=== PATIENT | female | born 1995 | race Two or more races ===

== ENCOUNTER 2021-02-27 20:43 | Emergency (ER) | payer MEDICAID, SELFPAY ==
[2021-02-27 20:53] VITALS: BP 120/75; PULSE 72; RESP 18; TEMP 36.7; O2SAT 99; BMI 25.3
--- NOTE | 2021-02-27 22:57 | ED.GENADULT ---
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 The patient became concerned because she noted that 3 hours later she had bumps at the left lower corner of her mouth. Related Data Previous Rx's Medication Instructions Recorded mupirocin 2 % topical ointment 1 appl TOPICAL TID 5 Days #15 g 02/27/21 Allergies Allergy/AdvReac Type Severity Reaction Status Date / Time No Known Allergies Allergy Unknown UNKNOWN Verified 02/27/21 20:53 [NO KNOWN ALLERGIES] Review of Systems Review of Systems: pertinent positives and negatives as stated in HPI 10 point review of systems is otherwise negative. PMFSH Past Medical History Source: nursing notes reviewed Medical History No pertinent past medical history Social History Social History Advance Directives: No Advance Directives Information Provided: Yes Patient : No Physical Exam Vital Signs: Vital Signs: Last Vital Signs Temp 98.0 F 02/27/21 20:53 Pulse 72 02/27/21 20:53 Resp 18 02/27/21 20:53 BP 120/75 02/27/21 20:53 Pulse Ox 99 02/27/21 20:53 BMI result Body Mass Index 25.3 VITAL SIGNS: Reviewed. GENERAL: Well developed, well nourished, in no acute distress. HEAD: Normocephalic/atraumatic EYES: PERRLA, EOMI OROPHARYNX: no oral lesions noted, posterior pharynx clear , there are noted clusters of purulence at spots at the left lower corner of the mouth NECK: Supple, no adenopathy LUNGS: Normal breath sounds. No adventitious sounds or accessory muscle use. SpO2<99> CARDIOVASCULAR: Regular rate and rhythm without noted murmurs ABDOMEN: Soft, non-tender, non-distended with bowel sounds. NEUROLOGIC: Alert and oriented x 4. Course Course Course Narrative: 25-year-old female was reassured that herpes would not have been transmitted within 3 hours and instead the area is possibly consistent with than impetigo. She was discharged home in stable condition with a prescription for mupirocin and instructions follow-up with primary care provider. Discharge Plan Discharge Clinical Impression: Impetigo Patient Disposition: Home, Self-Care Instructions: Impetigo (ED) Additional Instructions: follow-up with the primary care provider in complete the course of topical antibiotic. Prescriptions: New mupirocin 2 % ointment 1 appl topical TID 5 Days Qty: 15 RF: 0
[2021-02-27 23:03] VITALS: BP 112/73; PULSE 80; RESP 18; TEMP 36.8; O2SAT 99
== END 2021-02-27 23:10 | disposition home or self-care (01) ==
PROVIDERS: Emergency Provider Student in an Organized Health Care Education/Training Program
DX: L01.00 Impetigo, unspecified (principal)
CPT/HCPCS: 99283; 99284

== ENCOUNTER 2021-04-04 18:59 | Emergency (ER) | payer MEDICAID, SELFPAY ==
[2021-04-04 19:38] VITALS: BP 120/76; PULSE 76; RESP 16; TEMP 35.6; O2SAT 100; BMI 25.9
[2021-04-04 19:59] LABS: MANUAL DIFF FLAG NO
[2021-04-04 20:02] LABS: Appearance Urine CLEAR; Color Urine YELLOW; Glucose Urine UA NEG (NEG); Leukocyte Esterase Urine NEG (NEG); Nitrite Urine NEG (NEG); PH 5.5 (5.0-8.0); Specific Gravity - Urine >= 1.030 (1.005-1.025); Urine Blood NEG (NEG); Urine Ketones NEG (NEG); Urine Protein NEG (NEG-TRACE)
[2021-04-04 20:04] LABS: UPreg QC Valid YES; Urine Pregnancy NEGATIVE (NEGATIVE)
[2021-04-04 20:13] LABS: Basophils Percent Auto 0.4 % (0-2); Eosinophils Percent Auto 0.4 % (0-4); Hematocrit 40.3 % (37.0-47.0); Hemoglobin 12.9 g/dl (12.0-16.0); Imm Gran Abs Auto 0.03 X10*3/uL (0.00-0.03); Imm Gran Pct Auto 0.3 % (0.0-0.4); Lymphocytes Absolute Auto 2.2 X10*3/uL (1.2-4.9); Lymphocytes Percent Auto 21.9 % (20-40); Mean Corpuscular Hemoglobin 28.9 pg (27.0-33.0); Mean Corpuscular Volume 90.2 fL (80.0-98.0); Mean Platelet Volume 11.2 fL (9.4-12.3); Monocytes Absolute Auto 0.6 X10*3/uL (0.1-1.2); Monocytes Percent Auto 5.9 % (2-11); Neutrophils Absolute Auto 7.1 x10*3/uL (2.0-8.3); Neutrophils Percent Auto 71.1 % (45-73); Platelet Count 302 X10*3/uL (160-400); Red Blood Count 4.47 X10*6/uL (4.20-5.50); Red Cell Distribution Width 13.3 % (11.0-16.0)
[2021-04-04 20:23] LABS: COVID-19 Test Negative (Negative)
[2021-04-04 20:23] LABS: Alanine Aminotransferase 10 U/L (0-31); Albumin Level 4.5 g/dL (3.5-5.0); Alkaline Phosphatase 65 U/L (39-117); Anion Gap 15 (12-20); Aspartate Amino Transferase 12 U/L (5-31); Bilirubin Total 0.4 mg/dL (0.0-1.0); Blood Urea Nitrogen 11 mg/dL (9-16); Calcium 9.6 mg/dL (8.4-10.2); Carbon Dioxide 22 mmol/L (22-29); Chloride 105 mmol/L (96-108); Creatinine Clr Calc Pharmacy 104.4; Estimated Glomerular Filt Rate > 60; Glucose Random 96 mg/dL (60-115); Potassium 3.8 mmol/L (3.3-5.1); Sodium 138 mmol/L (135-145); Total Protein 7.7 g/dL (6.5-8.0)
[2021-04-04 23:23] VITALS: BP 117/63; PULSE 69; RESP 16; TEMP 37.2; O2SAT 99
--- NOTE | 2021-04-05 00:11 | ED.HA ---
HPI - Headache General Chief Complaint: Headache Stated Complaint: sinus pain dizziness Time Seen by Provider: 04/05/21 00:09 Source: patient Mode of arrival: ambulatory Limitations: no limitations History of Present Illness HPI Narrative: 25-year-old female came in for evaluation of right-sided facial pain. Symptoms started 3 days ago with right-sided head pain, pain described as pressure localized on the right frontal / right maxillary area pain is constant, no relieving factor, no aggravating factor. Declined any nasal discharge. No fever, no chills , no sore throat. No sick contacts, no coughing. No blurry vision, no neck stiffness, no photophobia. Related Data Previous Rx's Medication Instructions Recorded mupirocin 2 % topical ointment 1 appl TOPICAL TID 5 Days #15 g 02/27/21 amoxicillin 875 mg-potassium 1 tab PO Q12H #14 tab 04/05/21 clavulanate 125 mg tablet (Augmentin) Allergies Allergy/AdvReac Type Severity Reaction Status Date / Time No Known Allergies Allergy Unknown UNKNOWN Verified 04/04/21 19:45 [NO KNOWN ALLERGIES] Review of Systems Review of Systems: All other systems are reviewed and are negative Constitutional: Reports as per HPI and Reports no additional constitutional complaints Eyes: Reports as per HPI and Reports no additional eye complaints Reports system reviewed and no additional complaints, except as documented Cardiovascular: Reports as per HPI and Reports no additional cardiovascular complaints Respiratory: Reports as per HPI and Reports no additional respiratory complaints Gastrointestinal: Reports as per HPI and Reports no additional gastrointestinal complaints Genitourinary: Reports no additional female genitourinary complaints Musculoskeletal: Reports no additional musculoskeletal complaints Skin/Breast: Reports system reviewed and no additional complaints, except as docu Psychiatric: Reports no additional psychiatric complaints Endocrine: Reports no additional endocrine complaints Hematologic/Lymphatic: Reports no additional hematologic/lymphatic complaints Allergic/Immunologic: Reports no additional allergic/immunologic complaints Reports system reviewed and no additional complaints, except as documented and Reports Abnormal speech present [facility] Past Medical History Medical History (Updated 04/05/21 @ 00:20 by Ines Duckworth MD) Cardiac abnormality No pertinent past medical history Social History Social History Patient Tobacco Use Status: Never used Tobacco Advance Directives: No Advance Directives Information Provided: No Patient : No Physical Exam Vital Signs: Vital Signs: Last Vital Signs Temp 98.9 F 04/04/21 23:23 Pulse 69 04/04/21 23:23 Resp 16 04/04/21 23:23 BP 117/63 04/04/21 23:23 Pulse Ox 99 04/04/21 23:23 BMI result Body Mass Index 25.9 vital signs have been reviewed as appeared to be correct. Blood pressure normal. Heart rate normal. Respiration rate normal. Temperature normal. Oxygen saturation normal. Appearance: Alert. Oriented X3. No acute distress. Head: Normal external exam. Normocephalic. Atraumatic. No Hu signs noted. Tenderness with percussion over right frontal/right maxillary sinuses, no nasal discharge. Eyes: PERRLA. EOMI. Conjunctiva and sclera normal. Eyelids normal. ENT: TM's Normal. Pharynx normal. Uvula midline. Moist mucous membranes. No trismus noted. No drooling noted. No muffled voice noted. Neck: Normal inspection. Neck supple. FROM. No adenopathy. Thyroid Normal. No meningeal signs. No neck mass noted. CVS: Normal heart rate and rhythm. Heart sound normal. No murmurs noted. Pulses normal throughout. Respiratory: No respiratory distress. Painless inspiration. Breath sounds normal. No wheezes/rales/rhonchi noted. Chest nontender. No accessory muscle usage noted or decreased air movement noted. Abdomen: Soft and nontender. Bowel sounds normal in all 4 quadrants. No distention noted. No organomegaly noted. No visible injury noted. Back: No CVA tenderness. Full range of motion noted. Skin: Skin warm and dry. Normal skin color. Normal skin turgor. No rashes/lesions/lacerations noted. Extremities: No lower extremity edema. Extremities exhibit normal range of motion. Extremities nontender. Neuro: Oriented X 3. Cranial nerve exam: II-XII are grossly intact , no facial drooping. No motor deficit. No sensory deficit. Reflexes normal. Course Course Course Narrative: Assessment and plan. 25-year-old female otherwise healthy came in with symptoms of right frontal/ maxillary sinus infection. No neurological deficit and normal neuro exam. MDM - Headache Lab Data Attestation: I reviewed the patient's lab results. Result diagrams: 04/04/21 19:53 04/04/21 19:53 Labs: Lab Results 04/04/21 04/04/21 04/04/21 Range/Units 19:47 19:53 19:53 WBC 10.0 (4.8-10.8) X10*3/uL RBC 4.47 (4.20-5.50) X10*6/uL Hgb 12.9 (12.0-16.0) g/dl Hct 40.3 (37.0-47.0) % MCV 90.2 (80.0-98.0) fL MCH 28.9 (27.0-33.0) pg MCHC 32.0 (31.0-35.0) g/dl RDW 13.3 (11.0-16.0) % Plt Count 302 (160-400) X10*3/uL MPV 11.2 (9.4-12.3) fL Immature Gran % (Auto) 0.3 (0.0-0.4) % Neut % (Auto) 71.1 (45-73) % Lymph % (Auto) 21.9 (20-40) % [place] % (Auto) 5.9 (2-11) % Eos % (Auto) 0.4 (0-4) % Baso % (Auto) 0.4 (0-2) % Lymph # (Auto) 2.2 (1.2-4.9) X10*3/uL [place] # (Auto) 0.6 (0.1-1.2) X10*3/uL Eos # (Auto) 0.0 (0.0-0.4) X10*3/uL Baso # (Auto) 0.0 (0.0-0.2) X10*3/uL Abs Immat Gran (auto) 0.03 (0.00-0.03) X10*3/uL Absolute Neuts (auto) 7.1 (2.0-8.3) x10*3/uL Absolute Nucleated RBC 0.000 (0.0-0.012) X10*3/uL Nucleated RBC % (auto) 0.0 (0.0-0.2) /100WBC Sodium 138 (135-145) mmol/L Potassium 3.8 (3.3-5.1) mmol/L Chloride 105 (96-108) mmol/L Carbon Dioxide 22 (22-29) mmol/L Anion Gap 15 (12-20) BUN 11 (9-16) mg/dL Creatinine 0.82 (0.5-1.4) mg/dL Estim Creat Clear Calc 104.4 Estimated GFR > 60 Random Glucose 96 (60-115) mg/dL Calcium 9.6 (8.4-10.2) mg/dL Total Bilirubin 0.4 (0.0-1.0) mg/dL AST 12 (5-31) U/L ALT 10 (0-31) U/L Alkaline Phosphatase 65 (39-117) U/L Total Protein 7.7 (6.5-8.0) g/dL Albumin 4.5 (3.5-5.0) g/dL Urine Color Urine Appearance Urine pH (5.0-8.0) Ur Specific [place] (1.005-1.025) Urine Protein (NEG-TRACE) MG/DL Urine Glucose (UA) (NEG) MG/DL Urine Ketones (NEG) MG/DL Urine Blood (NEG) Urine Nitrite (NEG) Ur Leukocyte Esterase (NEG) Urine Test (NEGATIVE) COVID-19 ([place]) Negative (Negative) COVID-19 Clin Com See Note 04/04/21 04/04/21 Range/Units 19:53 19:53 WBC (4.8-10.8) X10*3/uL RBC (4.20-5.50) X10*6/uL Hgb (12.0-16.0) g/dl Hct (37.0-47.0) % MCV (80.0-98.0) fL MCH (27.0-33.0) pg MCHC (31.0-35.0) g/dl RDW (11.0-16.0) % Plt Count (160-400) X10*3/uL MPV (9.4-12.3) fL Immature Gran % (Auto) (0.0-0.4) % Neut % (Auto) (45-73) % Lymph % (Auto) (20-40) % [place] % (Auto) (2-11) % Eos % (Auto) (0-4) % Baso % (Auto) (0-2) % Lymph # (Auto) (1.2-4.9) X10*3/uL [place] # (Auto) (0.1-1.2) X10*3/uL Eos # (Auto) (0.0-0.4) X10*3/uL Baso # (Auto) (0.0-0.2) X10*3/uL Abs Immat Gran (auto) (0.00-0.03) X10*3/uL Absolute Neuts (auto) (2.0-8.3) x10*3/uL Absolute Nucleated RBC (0.0-0.012) X10*3/uL Nucleated RBC % (auto) (0.0-0.2) /100WBC Sodium (135-145) mmol/L Potassium (3.3-5.1) mmol/L Chloride (96-108) mmol/L Carbon Dioxide (22-29) mmol/L Anion Gap (12-20) BUN (9-16) mg/dL Creatinine (0.5-1.4) mg/dL Estim Creat Clear Calc Estimated GFR Random Glucose (60-115) mg/dL Calcium (8.4-10.2) mg/dL Total Bilirubin (0.0-1.0) mg/dL AST (5-31) U/L ALT (0-31) U/L Alkaline Phosphatase (39-117) U/L Total Protein (6.5-8.0) g/dL Albumin (3.5-5.0) g/dL Urine Color YELLOW Urine Appearance CLEAR Urine pH 5.5 (5.0-8.0) Ur Specific [place] >= 1.030 H (1.005-1.025) Urine Protein NEG (NEG-TRACE) MG/DL Urine Glucose (UA) NEG (NEG) MG/DL Urine Ketones NEG (NEG) MG/DL Urine Blood NEG (NEG) Urine Nitrite NEG (NEG) Ur Leukocyte Esterase NEG (NEG) Urine Test NEGATIVE (NEGATIVE) COVID-19 ([place]) (Negative) COVID-19 Clin Com Discharge Plan Discharge Clinical Impression: Sinusitis Patient Disposition: Home, Self-Care Instructions: Sinusitis (ED) Prescriptions: New amoxicillin-pot clavulanate [Augmentin] 875-125 mg tablet 1 tab PO Q12H Qty: 14 RF: 0 No Action mupirocin 2 % ointment 1 appl topical TID 5 Days Qty: 15 RF: 0 Referrals: [facility] [Primary Care Provider] - 2 days
[2021-04-05] MEDS: predniSONE 20 MG TABLET 60 MG PO (00:46)
[2021-04-05] MEDS: Amoxicillin/Potassium Clav 875 MG TABLET PO (00:47)
[2021-04-05] MEDS: Ibuprofen 600 MG TABLET PO (00:47)
== END 2021-04-05 00:53 | disposition home or self-care (01) ==
PROVIDERS: Emergency Provider Emergency Medicine
DX: J32.9 Chronic sinusitis, unspecified (principal); R51.9 Headache, unspecified; R42 Dizziness and giddiness; Z20.822 Contact with and (suspected) exposure to COVID-19; Z79.899 Other long term (current) drug therapy
CPT/HCPCS: 80053; 81003; 81025; 85025; 87635; 99283; 99284

== ENCOUNTER 2021-07-13 20:12 | Emergency (ER) | payer MEDICAID, SELFPAY ==
--- NOTE | 2021-07-13 | ECG_ITS ---
Test Reason : CHEST PAIN /STABBING PAIN Blood Pressure : / mmHG Vent. Rate : 080 BPM Atrial Rate : 080 BPM P-R Int : 144 ms QRS Dur : 084 ms QT Int : 348 ms P-R-T Axes : 062 065 042 degrees QTc Int : 401 ms Normal sinus rhythm with sinus arrhythmia Normal ECG No significant changes when compared with the previous EKG of 06 apr 2019 Referred By: Generic ED Physician Electronically Signed By:AURA AMARO
[2021-07-13 20:35] VITALS: BP 135/84; PULSE 87; RESP 16; TEMP 36.3; O2SAT 100; BMI 25.0
[2021-07-13 20:59] LABS: MANUAL DIFF FLAG NO
[2021-07-13 21:01] LABS: Basophils Percent Auto 0.2 % (0-2); Eosinophils Absolute Auto 0.1 X10*3/uL (0.0-0.4); Eosinophils Percent Auto 0.6 % (0-4); Hemoglobin 12.2 g/dl (12.0-16.0); Imm Gran Abs Auto 0.02 X10*3/uL (0.00-0.03); Imm Gran Pct Auto 0.2 % (0.0-0.4); Lymphocytes Absolute Auto 2.3 X10*3/uL (1.2-4.9); Lymphocytes Percent Auto 26.6 % (20-40); Mean Corpuscular HGB Conc 32.1 g/dl (31.0-35.0); Mean Corpuscular Hemoglobin 28.6 pg (27.0-33.0); Mean Corpuscular Volume 89.2 fL (80.0-98.0); Mean Platelet Volume 10.9 fL (9.4-12.3); Monocytes Absolute Auto 0.6 X10*3/uL (0.1-1.2); Monocytes Percent Auto 7.4 % (2-11); Neutrophils Absolute Auto 5.6 x10*3/uL (2.0-8.3); Platelet Count 255 X10*3/uL (160-400); Red Blood Count 4.26 X10*6/uL (4.20-5.50); Red Cell Distribution Width 12.4 % (11.0-16.0); White Blood Count 8.6 X10*3/uL (4.8-10.8)
[2021-07-13 21:15] LABS: COVID-19 Test Negative (Negative)
[2021-07-13 21:19] LABS: Alanine Aminotransferase 11 U/L (0-31); Albumin Level 4.1 g/dL (3.5-5.0); Alkaline Phosphatase 61 U/L (39-117); Anion Gap 14 (12-20); Aspartate Amino Transferase 14 U/L (5-31); Bilirubin Total 0.3 mg/dL (0.0-1.0); Blood Urea Nitrogen 14 mg/dL (9-16); Calcium 10.1 mg/dL (8.4-10.2); Carbon Dioxide 22 mmol/L (22-29); Chloride 107 mmol/L (96-108); Estimated Glomerular Filt Rate > 60; Glucose Random 104 mg/dL (60-115); Potassium 4.8 mmol/L (3.3-5.1); Sodium 138 mmol/L (135-145); Total Protein 7.3 g/dL (6.5-8.0)
[2021-07-13 21:30] LABS: Troponin-I High Sensitivity < 3.5 ng/L (<3.5-17.0)
== END 2021-07-13 23:31 | disposition left against medical advice (07) ==
PROVIDERS: Emergency Provider Emergency Medicine
DX: R07.89 Other chest pain (principal); Z20.822 Contact with and (suspected) exposure to COVID-19; Z79.899 Other long term (current) drug therapy
CPT/HCPCS: 80053; 84484; 85025; 87635; 93005; 99283

== ENCOUNTER 2021-07-14 15:46 | Emergency (ER) | payer MEDICAID, SELFPAY ==
--- NOTE | 2021-07-14 | ECG_ITS ---
Test Reason : CHEST PAIN Blood Pressure : / mmHG Vent. Rate : 080 BPM Atrial Rate : 080 BPM P-R Int : 144 ms QRS Dur : 088 ms QT Int : 368 ms P-R-T Axes : 050 070 029 degrees QTc Int : 424 ms Normal sinus rhythm with sinus arrhythmia Normal ECG When compared with ECG of 13-JUL-2021 20:37, No significant change was found Referred By: Generic ED Physician Electronically Signed By:AURA AMARO
--- NOTE | ~2021-07-14 | XR_ITS ---
EXAMINATION: PORTABLE CHEST 1 VIEW CLINICAL INFORMATION: cp with hx of Pericardial effusion . COMPARISON: 04/04/2019. TECHNIQUE: Portable frontal view of the chest was obtained. FINDINGS: The lungs are well expanded. No focal infiltrate, effusion, edema, or pneumothorax. Cardiac and mediastinal silhouettes are within normal limits for technique. No acute bony abnormality seen. XR/XR chest 1V IMPRESSION: No evidence of acute disease.
--- NOTE | ~2021-07-14 | CT_ITS ---
EXAMINATION: CT ANGIOGRAM OF THE CHEST WITH CONTRAST (CT PULMONARY ANGIOGRAM FOR PE) CLINICAL INFORMATION: Shortness of breath. Question pulmonary embolus. COMPARISON: Chest x-ray earlier today and CTA chest 09/20/2018 TECHNIQUE: Prior to contrast administration, noncontrast localization images were obtained. Subsequently, multidetector volumetric imaging was performed from the thoracic inlet to below the diaphragms following the administration of 60 mL Omnipaque 350 intravenous contrast. No contrast reaction reported Sagittal, coronal, and MIP oblique sagittal reformatted images were obtained on the CT workstation, uploaded to PACS, and reviewed. Lung parenchymal detail evaluation is limited secondary to respiratory motion artifact. No suspicious pulmonary nodules. This CT examination was performed using dose optimization techniques as appropriate, variously including the following: *Automated exposure control *Adjustment of mA and/or kV according to patient size (this includes techniques or standardized protocols for targeted exams where dose is matched to indication/reason for exam; i.e. extremities or head) *Use of iterative reconstruction technique Total exam dose-length product 205 mGy-cm FINDINGS: The heart is normal in size. There is no pericardial effusion. No pulmonary arterial filling defect to suggest pulmonary embolus. Normal caliber thoracic aorta. No gross mediastinal lymphadenopathy. A few shotty bilateral axillary lymph nodes are similar. Central airways are patent. Lungs are well aerated. There is no lobar consolidation, pleural effusion or pneumothorax. Visualized portions of the upper abdomen are grossly unremarkable. No acute osseous abnormality. Mild dextroscoliosis of the thoracic spine. CT/CT angio chest PE protocol IMPRESSION: No pulmonary embolism. VTE: negative
[2021-07-14 15:54] VITALS: BP 135/63; PULSE 91; RESP 19; TEMP 36.9; O2SAT 98; BMI 25.9
--- NOTE | 2021-07-14 16:21 | ED_ITS ---
HPI - Chest Pain General Chief Complaint: Chest Pain Stated Complaint: STATES SHE HAS WATER ON HER HEART Time Seen by Provider: 07/14/21 15:50 Source: patient Mode of arrival: ambulatory Limitations: no limitations History of Present Illness HPI narrative: Patient with history of pericardial effusion on 10/07 status post drainage comes here for 3 -4 days of discomfort in mid chest area with slight shortness of breath. Also complaining of arm pain seen her PCP today and sent her here feel pain is pinch lasting only for few seconds worse on lying flat Related Data Previous Rx's Medication Instructions Recorded mupirocin 2 % topical ointment 1 appl TOPICAL TID 5 Days #15 g 02/27/21 amoxicillin 875 mg-potassium 1 tab PO Q12H #14 tab 04/05/21 clavulanate 125 mg tablet (Augmentin) Allergies Allergy/AdvReac Type Severity Reaction Status Date / Time No Known Allergies Allergy Unknown UNKNOWN Verified 07/14/21 15:54 [NO KNOWN ALLERGIES] Review of Systems Review of Systems: Yes all other systems are reviewed and are negative [facility] Past Medical History Medical History Cardiac abnormality No pertinent past medical history Social History Social History Patient Tobacco Use Status: Never used Tobacco Advance Directives: No Advance Directives Information Provided: No Patient : No Physical Exam Vital Signs: Vital Signs: Last Vital Signs Temp 98.3 F 07/14/21 17:09 Pulse 82 07/14/21 20:21 Resp 17 07/14/21 20:21 BP 124/73 07/14/21 20:21 Pulse Ox 100 07/14/21 20:21 BMI result Body Mass Index 25.9 Appearance: Alert. Oriented X3. No acute distress. Eyes: No pallor or icterus ENT: Pharynx normal. Oral Mucosa moist Neck: Normal inspection. Neck supple. CVS: Normal heart rate and rhythm. Pulses normal. Respiratory: No respiratory distress. Equal air entry bilateral, no wheezing/rales/rhonchi Abdomen: Soft and nontender. Bowel sounds are present, Skin: Skin warm and dry. Normal skin color. Normal skin turgor. Extremities: No lower extremity edema. No calf tenderness Neuro: Oriented X 3. No motor deficit. MDM - Chest Pain MDM Narrative Medical decision making narrative: Patient was in the ER yesterday but not seen any provider labs were done which were normal. Bedside echo done which did not show any pericardial effusion with normal LV functions. Will check for CRP TSH troponin and D-dimer Patient labs are stable except D-dimer slightly elevated patient is on the Depo shot no history of DVT in the family will get CT chest rule out PE CTA chest negative for PE will discharge patient home Lab Data Attestation: I reviewed the patient's lab results. Labs: Lab Results 07/14/21 07/14/21 07/14/21 Range/Units 16:50 16:50 16:50 D-Dimer High Sensitivty 304 NG/ML Troponin I High Sens < 3.5 (<3.5-17.0) ng/L C-Reactive Protein 0.32 (< or = 0.50) mg/dL TSH 0.67 (0.32-4.0) uIU/mL Beta HCG, Quant < 2 mIU/mL ECG Data ECG #1: Attestation: I personally reviewed and interpreted this ECG as follows: Interpretation: Normal sinus rhythm heart rate 80 beats per minute normal interval normal axis no acute ST T wave changes no acute ischemia impression normal EKG Discharge Plan Discharge Clinical Impression: Atypical chest pain Patient Disposition: Home, Self-Care Instructions: Chest Wall Pain (ED) Additional Instructions: You do not have any pericardial effusion in today's bedside echo Follow-up with PCP/cardiology for further management Prescriptions: No Action mupirocin 2 % ointment 1 appl topical TID 5 Days Qty: 15 0RF amoxicillin-pot clavulanate [Augmentin] 875-125 mg tablet 1 tab PO Q12H Qty: 14 0RF Referrals: Good Renner MD [Physician] - 1 week
[2021-07-14 17:08] LABS: D Dimer High Sensitivity 304 NG/ML
[2021-07-14 17:09] VITALS: BP 126/58; PULSE 79; RESP 18; TEMP 36.8; O2SAT 99
[2021-07-14 17:12] LABS: C Reactive Protein 0.32 mg/dL (< or = 0.50)
[2021-07-14 17:20] LABS: Troponin-I High Sensitivity < 3.5 ng/L (<3.5-17.0)
[2021-07-14 17:34] LABS: Thyroid Stimulating Hormone 0.67 uIU/mL (0.32-4.0)
[2021-07-14 18:48] LABS: HCG Quantitative < 2 mIU/mL
[2021-07-14] MEDS: iohexoL 350 MG/ML 100 ML INFUS..BTL IV (19:17)
[2021-07-14 20:21] VITALS: BP 124/73; PULSE 82; RESP 17; O2SAT 100
== END 2021-07-14 20:36 | disposition home or self-care (01) ==
PROVIDERS: Emergency Provider Internal Medicine
DX: R07.89 Other chest pain (principal); R06.02 Shortness of breath; Z79.899 Other long term (current) drug therapy
CPT/HCPCS: 36415; 71045; 71275; 84443; 84484; 84702; 85379; 86140; 93005; 99284; 99285; Q9967

== ENCOUNTER 2021-09-10 13:44 | Emergency (ER) | payer MEDICAID, SELFPAY ==
[2021-09-10 13:48] VITALS: BP 131/54; PULSE 64; RESP 18; TEMP 36.1; O2SAT 98; BMI 24.7
--- NOTE | 2021-09-10 14:00 | ED_ITS ---
HPI - Female Genitourinary General Chief complaint: Urogenital-Female Stated complaint: pain when urinating Time Seen by Provider: 09/10/21 13:45 Source: patient Mode of arrival: ambulatory Limitations: no limitations History of Present Illness HPI Narrative: 26-year-old female previously healthy here with vaginal itching for the last 4 days. Patient recently finished her menses. She uses pads only. She denies any urinary symptoms or vaginal discharge. No abdominal pain, back pain, fever, vomiting. Patient has a new sexual partner and would like to be tested for STDs Related Data Previous Rx's Medication Instructions Recorded mupirocin 2 % topical ointment 1 appl topical TID 5 days #15 grams 02/27/21 amoxicillin 875 mg-potassium 1 tab PO Q12H #14 tabs 04/05/21 clavulanate 125 mg tablet (Augmentin) doxycycline monohydrate 100 mg 100 mg PO BID #14 tabs 09/10/21 tablet Allergies Allergy/AdvReac Type Severity Reaction Status Date / Time No Known Allergies Allergy Unknown UNKNOWN Verified 07/14/21 15:54 [NO KNOWN ALLERGIES] Review of Systems Review of Systems: Yes all other systems are reviewed and are negative Constitutional: Constitutional: Reports no additional constitutional complaints, Denies body ache(s), Denies chills, Denies fever(s), Denies headache(s) and Denies weakness Eyes: Eyes: Reports no additional eye complaints and Denies change in vision ENT: Reports system reviewed and no additional complaints, except as documented, Denies dizziness, Denies headache(s), Denies nasal congestion, Denies nasal discharge and Denies neck pain Cardiovascular: Cardiovascular: Reports no additional cardiovascular complaints, Denies chest pain, Denies leg edema and Denies dyspnea Respiratory: Respiratory: Reports no additional respiratory complaints, Denies cough and Denies dyspnea Gastrointestinal: Gastrointestinal: Reports no additional gastrointestinal complaints, Denies abdominal pain, Denies diarrhea, Denies nausea and Denies vomiting Genitourinary: Genitourinary: Reports no additional female genitourinary complaints, Denies urinary incontinence, Denies vaginal discharge and Reports vaginal pruritus Musculoskeletal: Musculoskeletal: Reports no additional musculoskeletal compl aints, Denies back pain, Denies arthralgias, Denies joint swelling, Denies neck pain, Denies numbness and Denies tingling Integumentary/Breasts: Skin/Breast: Reports system reviewed and no additional complaints, except as docu and Denies rash Neurologic: Reports system reviewed and no additional complaints, except as documented, Denies Abnormal speech present, Denies dizziness, Denies headache(s), Denies numbness, Denies tingling and Denies weakness PMFSH Past Medical History Attestation statement: The following information was validated with the patient. Source: old records reviewed and nursing notes reviewed Medical History Cardiac abnormality No pertinent past medical history Social History Social History Patient Tobacco Use Status: Never used Tobacco Advance Directives: No Advance Directives Information Provided: Yes Physical Exam Vital Signs: Vital Signs: Last Vital Signs Temp 97.0 F 09/10/21 13:48 Pulse 64 09/10/21 13:48 Resp 18 09/10/21 13:48 BP 131/54 L 09/10/21 13:48 Pulse Ox 98 09/10/21 13:48 O2 Del Method 09/10/21 13:48 BMI result Body Mass Index 24.7 Const: General: cooperative, healthy appearing, comfortable and no acute distress Orientation/consciousness: patient oriented x3 Limitations: no limitations HEENT: Head: Yes normal to inspection Ears: hearing grossly normal bilaterally General nose exam: Normal external nose present Face and si nus: Yes normal facial exam Mouth: Normal oral and palatal mucosa present Throat: Yes posterior oropharynx normal Eyes: General: appearance normal, both eyes and all related structures Pupils: Equal, round and reactive pupils present Neck: Neck: Yes normal visual inspection Chest: Chest palpation & inspection: normal inspection of the chest Resp: Effort & Inspection: normal respiratory effort Auscultation: clear to auscultation bilaterally Cardio: Rate: regular rate Rhythm: regular rhythm Peripheral pulses: Peripheral pulses 2+ throughout GI: Inspection: Yes normal to inspection Palpation (GI): Soft to palpation and nontender Auscultation: normal bowel sounds Back/Spine/Pelvis: Thoracic/Lumbar Spine: thoracic and lumbar spine normal to inspection Skin: General skin exam: no rashes or lesions noted Neuro: General: patient oriented x3, no focal motor deficits and normal sensa tion to monofilament Cranial nerves: Yes Equal, round and reactive pupils present Cognition (Neuro): normal cognition Speech: No Abnormal speech present Gait exam (Neuro): Normal gait present Motor exam (neuro): 5/5 motor strength present throughout Extrem: General: Yes normal to inspection Course Course Course Narrative: Urinalysis and urine are negative. STI testing is pending. Patient wishes to be treated prophylactically. We discussed safe sex practices. Reviewed worrisome signs and symptoms and when to return to the emergency department. Comfortable discharge. MDM - Female Genitourinary MDM Narrative Medical decision making narrative: 26-year-old female here with reports of vaginal itching last 4 days with a recent new sexual partner. She is seeking STD testing. No pelvic pain. Will check UA, CT NG, BV panel Medical Records Attestation: I reviewed the patient's medical records. Lab Data Attestation: I reviewed the patient's lab results. Labs: Lab Results 09/10/21 09/10/21 Range/Units 13:55 13:55 Urine Color YELLOW Urine Appearance CLEAR Urine pH 6.5 (5.0-8.0) Ur Specific [place] 1.020 (1.005-1.025) Urine Protein NEG (NEG-TRACE) MG/DL Urine Glucose (UA) NEG (NEG) MG/DL Urine Ketones 5 (NEG) MG/DL Urine Blood 1+ H (NEG) Urine Nitrite NEG (NEG) Ur Leukocyte Esterase TRACE H (NEG) Urine RBC 1-4 (0) /HPF Urine WBC 0-2 (0-4) /HPF Ur Squamous Epith Cells 2+ /LPF Urine Bacteria NONE /LPF Urine Mucus 3+ /LPF Urine Test NEGATIVE (NEGATIVE) Discharge Plan Discharge Clinical Impression: Concern about STD in female without diagnosis Patient Disposition: Home, Self-Care Instructions: Sexually Transmitted Diseases (ED) Additional Instructions: We sent testing for STDs. These results take 1-2 days to come back. We will call you if they are positive. We are treating you prophylactically with antibiotics. If the results are positive you should get [facility] to make sure that you clear the infection. Use condoms Prescriptions: New doxycycline monohydrate 100 mg tablet 100 mg PO BID Qty: 14 0RF No Action mupirocin 2 % ointment 1 appl topical TID 5 Days Qty: 15 0RF amoxicillin-pot clavulanate [Augmentin] 875-125 mg tablet 1 tab PO Q12H Qty: 14 0RF Referrals: Physician,Unknown J [Primary Care Provider] - Interventions: ED Discharge Assessment Last Done: 09/10/21 15:21 Discharge Date/Time: 09/10/21 15:23
[2021-09-10 14:05] LABS: Appearance Urine CLEAR; Color Urine YELLOW; Glucose Urine UA NEG (NEG); Leukocyte Esterase Urine TRACE (NEG); Nitrite Urine NEG (NEG); PH 6.5 (5.0-8.0); UACC Culture Trigger NO; Urine Blood 1+ (NEG); Urine Ketones 5 MG/DL (NEG); Urine Protein NEG (NEG-TRACE)
[2021-09-10 14:08] LABS: UPreg QC Valid YES; Urine Pregnancy NEGATIVE (NEGATIVE)
[2021-09-10 14:36] LABS: Mucus Urine 3+ /LPF; Squamous Epithelial Cell Urine 2+ /LPF; WBC Urine 0-2 /HPF (0-4)
[2021-09-10] MEDS: cefTRIAXone sodium 500 MG, Lidocaine HCl 1 % MPF 1 ML IM (15:17)
[2021-09-10 16:08] LABS: CT PCR NOT DETECTED (Not Detect.); NG PCR NOT DETECTED (Not Detect.)
[2021-09-11 08:38] LABS: BV Int Neg Control Negative (Negative); BV Int Pos Control Positive (Positive)
== END 2021-09-10 15:23 | disposition home or self-care (01) ==
PROVIDERS: Nurse Practitioner Family; Emergency Provider Emergency Medicine
DX: R30.0 Dysuria (principal); L29.2 Pruritus vulvae; Z79.899 Other long term (current) drug therapy; Z20.2 Contact with and (suspected) exposure to infections with a predominantly sexual mode of transmission
CPT/HCPCS: 81001; 81003; 81025; 87480; 87491; 87510; 87591; 87660; 96372; 99283; 99284; J0696

== ENCOUNTER → 2021-09-16 14:43 | Outpatient (BNVA) | payer MEDICAID, SELFPAY | PROVIDERS: PCP Nurse Practitioner Primary Care; Referring Provider Nurse Practitioner Primary Care; Visit Provider Internal Medicine Cardiovascular Disease | DX: R00.2 Palpitations (principal) | CPT/HCPCS: 99202 ==

== ENCOUNTER → 2021-12-26 10:31 | Outpatient (REF) | payer MEDICAID, SELFPAY ==
--- NOTE | 2021-12-26 10:34 | ECG_ITS ---
Hook-up date: 2021-12-26 10:49:00 Duration: 47:59:00 Test Indications: PALPITATIONS Medications: [id number] QRS complexes 7 Ventricular ectopics which represent <1 % of total QRS comp. 2 Supraventricular ectopics which represent <1 % of total QRS comp. * Paced QRS complexs which represent % of total QRS comp. VENTRICULAR ECTOPY 7 Isolated 0 Bigeminal Cycles 0 Couplets 0 Runs 0 Beats in Runs * Beats LONGEST at * BPM at :: -- * Beats FASTEST at * BPM at :: -- SUPRAVENTRICULAR ECTOPY 2 Isolated 0 Couplets 0 Runs 0 Beats in Runs * Beats LONGEST at * BPM at :: -- * Beats FASTEST at * BPM at :: -- HEART RATES 42 MIN at 07:11:36 2021-12-28 69 AVG 138 MAX at 14:37:46 2021-12-27 LONGEST RR 1.6640 secs at 10:04:15 2021-12-27 S-T LEVELS Channel 1 - 128 mm at 10:49:00 2021-12-26 - 128 mm at 10:49:00 2021-12-26 Channel 2 - 128 mm at 10:49:00 2021-12-26 - 128 mm at 10:49:00 2021-12-26 Channel 3 - 128 mm at 03:00:81 -- - 128 mm at 03:00:81 Underlying rhythm is sinus; Average ventricular rate 69/min; range 42-138/min; Extremely rare supraventricular/ventricular ectopy; No sustained arrhythmias; Patient did not return diary Referred By: Good Renner Overread By: AURA AMARO
== END ==
LOC: HO.CARD 10:31
PROVIDERS: Visit Provider Internal Medicine Cardiovascular Disease
DX: R00.2 Palpitations (principal)
CPT/HCPCS: 93225; 93226; 93306

== ENCOUNTER 2022-04-15 09:41 | Emergency (ER) | payer MEDICAID, SELFPAY ==
[2022-04-15 09:45] VITALS: BP 147/85; PULSE 70; RESP 16; TEMP 36.7; O2SAT 99; BMI 24.6
--- NOTE | 2022-04-15 10:16 | ED.DENTAL ---
HPI - Dental/Oral General Chief complaint: Dental/Oral Stated complaint: dental pain Time Seen by Provider: 04/15/22 09:50 Source: patient Mode of arrival: ambulatory History of Present Illness HPI Narrative: 26-year-old female with a past medical history of pericardial effusion s/p drainage, presenting to the ED complaining of left ear pain radiating to jaw/ mouth x2 days. Admits to taking OTC medications without relief. Reports ear feels clogged with slight drainage. also reports subjective fever. Denies hearing loss , oral swelling, difficulty /inability to swallow, recent dental procedures Onset (ago): day(s) Related Data Previous Rx's Medication Instructions Recorded acetaminophen 500 mg tablet 500 mg PO Q6H PRN fever or pain 04/15/22 (Tylenol Extra Strength) #14 tabs amoxicillin 875 mg-potassium 1 tab PO BID 7 days #14 tabs 04/15/22 clavulanate 125 mg tablet ciprofloxacin 0.3 %-dexamethasone 4 drp otic (ears) BID 7 days #7.5 04/15/22 0.1 % ear drops,suspension mL (Ciprodex) ibuprofen 800 mg tablet 800 mg PO Q8H PRN pain #14 tabs 04/15/22 Allergies Allergy/AdvReac Type Severity Reaction Status Date / Time No Known Allergies Allergy Unknown UNKNOWN Verified 07/14/21 15:54 [NO KNOWN ALLERGIES] Review of Systems Review of Systems: Constitutional: +Subj Fever, No Chills ENT/Mouth: No dental pain, + Ear Pain, No Nasal Congestion, No Sinus Pain, No Hoarseness, No sore throat, No Rhinorrhea, No Swallowing Difficulty Cardiovascular: No Chest Pain, No SOB Respiratory: No Cough Gastrointestinal: No Nausea, No Vomiting, No Abdominal pain Musculoskeletal: No joint pain, No Myalgias Skin: No Skin Lesions, No rash Neuro: No Weakness Yes all other systems are reviewed and are negative Constitutional: Constitutional: Reports as per [facility] Past Medical History Attestation statement: The following information was validated with the patient. Medical History Cardiac abnormality No pertinent past medical history Pericardial effusion Surgical History Hx of tonsillectomy Family History Family History Father No problems noted. Mother No problems noted. Social History Social History Patient Tobacco Use Status: Never used Tobacco Advance Directives: No Advance Directives Information Provided: No Physical Exam Vital Signs: Vital Signs: Last Vital Signs Temp 98.1 F 04/15/22 09:45 Pulse 70 04/15/22 09:45 Resp 16 04/15/22 09:45 BP 147/85 H 04/15/22 09:45 Pulse Ox 99 04/15/22 09:45 O2 Del Method 04/15/22 09:45 BMI result Body Mass Index 24.6 Const: Other: in pain General: cooperative and no acute distress Orientation/consciousness: patient oriented x3 Limitations: no limitations HEENT: Head: Yes normal to inspection and Yes atraumatic Ears: hearing grossly normal bilaterally, TM normal on the right, mastoids normal, Abnormal EAC present edema on the left and EAC tenderness on the left and TM abnormal bulging on the left, wth effusion (left), erythematous on the left and with fluid behind the TM on the left General nose exam: Normal external nose present Face and sinus: Yes normal facial exam and No crepitus Mouth: no drooling and no muffled voice Teeth and gingiva: dentition normal and no caries Throat: Yes posterior oropharynx normal, Yes tonsils normal, Yes uvula midline, No uvula laterally displaced and No uvular edema Eyes: General: appearance normal, both eyes and all related structures EOM: EOMs intact bilaterally Neck: Neck: Yes normal visual inspection, Yes no lymphadenopathy and Yes no meningeal signs Resp: Effort & Inspection: normal respiratory effort, no respiratory distress and no stridor Cardio: Rate: regular rate Skin: Rashes: no rashes Wounds: no wounds Neuro: General: patient oriented x3, tone normal and no meningeal signs Gait exam (Neuro): Normal gait present Extrem: General: Yes normal to inspection Medications Administered Discontinued Medications Generic Name Dose Route Start Last Admin Trade Name Freq PRN Reason Stop Dose Admin Amoxicillin/Clavulanate Potassium 875 mg 04/15/22 10:25 04/15/22 10:36 Amoxicillin/Potassium Clav 875 Mg Tablet PO 04/15/22 10:26 875 mg ONCE ONE Administration Medical Decision Making Medical Decision Making MDM Narrative: 26-year-old female with a past medical history of pericardial effusion s/p drainage, presenting to the ED complaining of left ear pain radiating to jaw/ mouth x2 days. on exam vital signs stable, NAD, nontoxic appearing, physical exam as above consistent with otitis media and externa, mastoids WNL. No evidence of intraoral infection or dental/gingival abscess. Uvula midline. No evidence of [employer]. Plan: PO antibiotics and ear drops Differential Diagnosis Differential Diagnoses: The differential diagnosis associated with the presentation includes as above External Record Review External record reviewed: Office record, Outpatient record and Prior outpatient labs Prescription Management I considered prescription management with: Pain Medication and Antibiotic Discharge Plan Discharge Clinical Impression: Otitis media, Otitis externa Patient Disposition: Home, Self-Care Instructions: Otitis Externa (ED), Ear Infection (ED) Additional Instructions: you have an internal and external ear infection. Augmentin is an antibiotic please take as prescribed. Ciprodex drops are antibiotic drops with steroids, use as prescribed. Please have close follow-up with her doctor. You may ice painful area take Tylenol and Motrin. If symptoms persist or worsening of constant worsening pain, drainage from ear, hearing loss or fever return to the emergency department Prescriptions: New ibuprofen 800 mg tablet 800 mg PO Q8H PRN (Reason: pain) Qty: 14 0RF acetaminophen [Tylenol Extra Strength] 500 mg tablet 500 mg PO Q6H PRN (Reason: fever or pain) Qty: 14 0RF amoxicillin-pot clavulanate 875-125 mg tablet 1 tab PO BID 7 Days Qty: 14 0RF ciprofloxacin-dexamethasone [Ciprodex] 0.3-0.1 % drops,suspension 4 drp otic (ears) BID 7 Days Qty: 7.5 0RF Referrals: [facility] [Primary Care Provider] - 5 days Stand Alone Forms: Work/School Release Interventions: ED Discharge Assessment Last Done: 04/15/22 10:49 Discharge Date/Time: 04/15/22 10:50
[2022-04-15] MEDS: Amoxicillin/Potassium Clav 875 MG TABLET PO (10:36)
== END 2022-04-15 10:50 | disposition home or self-care (01) ==
PROVIDERS: Emergency Provider Emergency Medicine
DX: H66.92 Otitis media, unspecified, left ear (principal); H60.92 Unspecified otitis externa, left ear
CPT/HCPCS: 99282; 99283

== ENCOUNTER 2022-04-16 09:59 | Emergency (ER) | payer MEDICAID, SELFPAY ==
[2022-04-16 10:15] VITALS: BP 139/72; PULSE 77; RESP 16; TEMP 36.9; O2SAT 98; BMI 23.3
--- NOTE | 2022-04-16 10:15 | ED_ITS ---
HPI - Ear Problem General Chief complaint: Nausea/Vomiting/Diarrhea Stated complaint: ear infection Time Seen by Provider: 04/16/22 10:57 Related Data Previous Rx's Medication Instructions Recorded acetaminophen 500 mg tablet 500 mg PO Q6H PRN fever or pain 04/15/22 (Tylenol Extra Strength) #14 tabs amoxicillin 875 mg-potassium 1 tab PO BID 7 days #14 tabs 04/15/22 clavulanate 125 mg tablet ciprofloxacin 0.3 %-dexamethasone 4 drp otic (ears) BID 7 days #7.5 04/15/22 0.1 % ear drops,suspension mL (Ciprodex) ibuprofen 800 mg tablet 800 mg PO Q8H PRN pain #14 tabs 04/15/22 ondansetron 4 mg disintegrating 4 mg PO Q8H PRN nausea and 04/16/22 tablet vomiting #10 tabs Allergies Allergy/AdvReac Type Severity Reaction Status Date / Time No Known Allergies Allergy Unknown UNKNOWN Verified 07/14/21 15:54 [NO KNOWN ALLERGIES] PMFSH Past Medical History Medical History Cardiac abnormality No pertinent past medical history Pericardial effusion Surgical History Hx of tonsillectomy Family History Family History Father No problems noted. Mother No problems noted. Social History Social History Patient Tobacco Use Status: Never used Tobacco Advance Directives: No Physical Exam Vital Signs: Vital Signs: Last Vital Signs Temp 98.3 F 04/16/22 13:35 Pulse 71 04/16/22 13:35 Resp 16 04/16/22 13:35 BP 134/78 04/16/22 13:35 Pulse Ox 100 04/16/22 13:35 O2 Del Method 04/16/22 13:35 BMI result Body Mass Index 23.3 Course Course Course Narrative: This a rapid medical exam. Deferred additional HPI, ROS, PE to primary provider. 26 yo female healthy here with complaints of vomiting/diarrhea x several days. Patient reports seen here yesterday for otitis media/otitis externa and started on ciprodex/augmentin. Patient reports she had vomiting before starting this medication and unable to keep down the pills or any liquids secondary to vomiting. Diarrhea began after taking the augmentin. Will give SL zofran. Feels generally weak. VSS. Will obtain labs, zofran SL. Medications Administered Discontinued Medications Generic Name Dose Route Start Last Admin Trade Name Freq PRN Reason Stop Dose Admin Sodium Chloride 1,000 mls @ 999 mls/hr 04/16/22 11:15 04/16/22 12:57 Ns IV 04/16/22 12:15 Infused .Q1H1M COLTON Infusion Ondansetron HCl 4 mg 04/16/22 10:15 04/16/22 10:21 Ondansetron Odt 4 Mg Tab.Rapdis TRANSLINGU 04/16/22 10:16 4 mg ONCE ONE Administration Medical Decision Making Lab Data 04/16/22 10:32 04/16/22 10:32 Labs: Lab Results 04/16/22 04/16/22 04/16/22 Range/Units 10:32 10:32 12:49 WBC 11.5 H (4.8-10.8) X10*3/uL RBC 4.29 (4.20-5.50) X10*6/uL Hgb 12.5 (12.0-16.0) g/dl Hct 38.3 (37.0-47.0) % MCV 89.3 (80.0-98.0) fL MCH 29.1 (27.0-33.0) pg MCHC 32.6 (31.0-35.0) g/dl RDW 13.6 (11.0-16.0) % Plt Count 269 (160-400) X10*3/uL MPV 10.8 (9.4-12.3) fL Immature Gran % (Auto) 0.3 (0.0-0.4) % Neut % (Auto) 80.9 H (45-73) % Lymph % (Auto) 11.4 L (20-40) % [place] % (Auto) 7.0 (2-11) % Eos % (Auto) 0.1 (0-4) % Baso % (Auto) 0.3 (0-2) % Lymph # (Auto) 1.3 (1.2-4.9) X10*3/uL [place] # (Auto) 0.8 (0.1-1.2) X10*3/uL Eos # (Auto) 0.0 (0.0-0.4) X10*3/uL Baso # (Auto) 0.0 (0.0-0.2) X10*3/uL Abs Immat Gran (auto) 0.03 (0.00-0.03) X10*3/uL Absolute Neuts (auto) 9.3 H (2.0-8.3) x10*3/uL Absolute Nucleated RBC 0.000 (0.0-0.012) X10*3/uL Nucleated RBC % (auto) 0.0 (0.0-0.2) /100WBC Sodium 141 (135-145) mmol/L Potassium 4.1 (3.3-5.1) mmol/L Chloride 111 H (96-108) mmol/L Carbon Dioxide 22 (22-29) mmol/L Anion Gap 12 (12-20) BUN 11 (9-16) mg/dL Creatinine 1.01 (0.5-1.4) mg/dL Estim Creat Clear Calc 76.6 Estimated GFR > 60 Random Glucose 105 (60-115) mg/dL Calcium 9.6 (8.4-10.2) mg/dL Urine Color Yellow Urine Appearance Cloudy Urine pH 5.5 (5.0-9.0) Ur Specific [place] <= 1.005 (1.005-1.025) Urine Protein Negative (Neg-Trace) mg/dL Urine Glucose (UA) Negative (Negative) mg/dL Urine Ketones Negative (Negative) mg/dL Urine Blood Trace H (Negative) Urine Nitrite Negative (Negative) Ur Leukocyte Esterase Trace H (Negative) Urine RBC 0-2 (0-2) /HPF Urine WBC 0-5 (0-5) /HPF Ur Squamous Epith Cells 3-5 (0-2) /HPF Urine Bacteria None Seen (None Seen) Hyaline Casts 0-2 (0-2) /LPF Urine Test (NEGATIVE) 04/16/22 Range/Units 12:49 WBC (4.8-10.8) X10*3/uL RBC (4.20-5.50) X10*6/uL Hgb (12.0-16.0) g/dl Hct (37.0-47.0) % MCV (80.0-98.0) fL MCH (27.0-33.0) pg MCHC (31.0-35.0) g/dl RDW (11.0-16.0) % Plt Count (160-400) X10*3/uL MPV (9.4-12.3) fL Immature Gran % (Auto) (0.0-0.4) % Neut % (Auto) (45-73) % Lymph % (Auto) (20-40) % [place] % (Auto) (2-11) % Eos % (Auto) (0-4) % Baso % (Auto) (0-2) % Lymph # (Auto) (1.2-4.9) X10*3/uL [place] # (Auto) (0.1-1.2) X10*3/uL Eos # (Auto) (0.0-0.4) X10*3/uL Baso # (Auto) (0.0-0.2) X10*3/uL Abs Immat Gran (auto) (0.00-0.03) X10*3/uL Absolute Neuts (auto) (2.0-8.3) x10*3/uL Absolute Nucleated RBC (0.0-0.012) X10*3/uL Nucleated RBC % (auto) (0.0-0.2) /100WBC Sodium (135-145) mmol/L Potassium (3.3-5.1) mmol/L Chloride (96-108) mmol/L Carbon Dioxide (22-29) mmol/L Anion Gap (12-20) BUN (9-16) mg/dL Creatinine (0.5-1.4) mg/dL Estim Creat Clear Calc Estimated GFR Random Glucose (60-115) mg/dL Calcium (8.4-10.2) mg/dL Urine Color Urine Appearance Urine pH (5.0-9.0) Ur Specific [place] (1.005-1.025) Urine Protein (Neg-Trace) mg/dL Urine Glucose (UA) (Negative) mg/dL Urine Ketones (Negative) mg/dL Urine Blood (Negative) Urine Nitrite (Negative) Ur Leukocyte Esterase (Negative) Urine RBC (0-2) /HPF Urine WBC (0-5) /HPF Ur Squamous Epith Cells (0-2) /HPF Urine Bacteria (None Seen) Hyaline Casts (0-2) /LPF Urine Test NEGATIVE (NEGATIVE) Discharge Plan Discharge Clinical Impression: Nausea and vomiting, Dehydration Patient Disposition: Home, Self-Care Instructions: Dehydration (ED), Acute Nausea and Vomiting (ED) Additional Instructions: [place] diet increase fluids rest You received IV fluids to treat dehydration Follow-up with a PCP return if symptoms worsen Continue current antibiotics Prescriptions: New ondansetron 4 mg tablet,disintegrating 4 mg PO Q8H PRN (Reason: nausea and vomiting) Qty: 10 0RF No Action ibuprofen 800 mg tablet 800 mg PO Q8H PRN (Reason: pain) Qty: 14 0RF acetaminophen [Tylenol Extra Strength] 500 mg tablet 500 mg PO Q6H PRN (Reason: fever or pain) Qty: 14 0RF amoxicillin-pot clavulanate 875-125 mg tablet 1 tab PO BID 7 Days Qty: 14 0RF ciprofloxacin-dexamethasone [Ciprodex] 0.3-0.1 % drops,suspension 4 drp otic (ears) BID 7 Days Qty: 7.5 0RF Stand Alone Forms: Work/School Release Interventions: ED Discharge Assessment Last Done: 04/16/22 13:37 Discharge Date/Time: 04/16/22 13:39 Print Language: Citizen [place]
[2022-04-16] MEDS: Ondansetron ODT 4 MG TAB.RAPDIS TRANSLINGU (10:21)
[2022-04-16 10:37] LABS: MANUAL DIFF FLAG NO
--- OUTSIDE RECORDS SUMMARY | 2022-04-16 10:38 | XMS_ITS | Continuity of Care Document ---
:1995 Author Organization [facility] Address [address] [place] [id number] Care Team Providers Name Role Phone Dalia CH, Katherine Dalton Primary Care Physician Encounter [facility] ACCT R [id number] Date(s): 01/09/20 - 01/16/20 [facility] [address] [id number] Attending Physician: Ysabel Fitzgerald DO Referring Physician: Shayan LIZARRAGA, Justine Muñoz Allergies, Adverse Reactions, Alerts No Known Medication Allergies Immunizations Given and Recorded Vaccine Date Status Refusal Reason influenza virus vaccine, inactivated 01/09/20 Given Medications 19 (Neversink) oral tablet, chewable 1 tablet, Chew, Daily, # 30 tablet, 11 Refills, Maintenance, 01/10/20 13:50:00 EDT, [facility], 1 tablet Chew Daily, 164, cm, 01/09/20 19:02:00 EDT, Height, 67, kg, 01/09/20 19:02:00 EDT,Dry Weight Start Date: 01/10/20 Status: OrderedPrometrium 200 mg oral capsule See Instructions, 1 capsule vaginally daily at night, # 30 capsule, 6 Refills, Maintenance, 01/08/2019:42:00 EDT, [facility], 164, cm, 01/09/20 19:02:00 EDT, Height, 67, kg, 01/09/20 19:02:00 EDT, Dry Weight Start Date: 01/09/20 Status: OrderedTylenol Extra Strength 500 mg oral tablet 2 tablet = 1,000 mg, By Mouth, 3 times a day, PRN for pain, # 120 tablet, 0 Refills, Maintenance, 09/20/18 23:14:02 EDT, Tablet Start Date: 09/20/18 Status: Ordered Problem List Condition Effective Dates Status Health Status Informant Bicornuate uterus(Confirmed) Active Family history of deafness(Confirmed) Active History of delivery x Active 2(Confirmed) Hx of Pericardial effusion, Active (Confirmed)1 Request for sterilization(Confirmed) Active 12373, tx'd here at [facility]. Vital Signs Most recent to oldest [Reference Range]: 1 Height 164 cm (01/09/20 7:02 PM) Weight 67 kg (01/09/20 7:02 PM) Body Mass Index [18.5-24.99] 24.91 (01/09/20 7:02 PM) Blood Pressure [90-138/55-84 mm Hg] 110/50 mm Hg (01/09/20 7:02 PM) Blood pressure sites Arm, right (01/09/20 7:02 PM) Dry Weight 67 kg (01/09/20 7:02 PM) Weight Obtained Via Standing scale (01/09/20 7:02 PM) Dry Weight Obtained Via Standing scale (01/09/20 7:02 PM) Social History Social History Type Response Smoking Status Never (less than 100 in life time) entered on: 11/15/19 Sex
--- OUTSIDE RECORDS SUMMARY | 2022-04-16 10:38 | XMS_ITS | Continuity of Care Document ---
:1995 Author Organization [facility] Address [address] [place] [id number]- Care Team Providers Name Role Phone Dalia AUTO VINYL TOP INSTALLER, Katherine Dalton Primary Care Physician [place] [facility] [place] 04/23/20 - 05/23/20 [facility] [address] [address]- Allergies, Adverse Reactions, Alerts No Known Medication Allergies Immunizations Given and Recorded Vaccine Date Status Refusal Reason influenza virus vaccine, inactivated 01/09/20 Given Medications doxylamine 25 mg oral tablet 1 tablet = 25 mg, By Mouth, Daily, Take one tablet before bed. May take additional tablet in the morning if nausea still persistent, # 60 tablet, 6 Refills, Maintenance, 02/12/20 16:06:00 EST, [facility], Partial fill upon patient... Start Date: 02/12/20 Status: OrderedPrenatal 19 ([place]) oral tablet, chewable 1 tablet, Chew, Daily, # 30 tablet, 11 Refills, Maintenance, 02/12/20 16:06:00 EST, [facility], 1 tablet Chew Daily, 164, cm, 02/12/20 15:34:00 EST, Height, 67, kg, 01/09/20 19:02:00 EDT, Dry Weight Start Date: 02/12/20 Status: OrderedPrometrium 200 mg oral capsule See Instructions, 1 capsule vaginally daily at night, # 30 capsule, 6 Refills, Maintenance, 02/12/2016:06:00 EST, [facility], 164, cm, 02/12/20 15:34:00 EST, Height, 67, kg, 01/09/20 19:02:00 EDT, Dry Weight Start Date: 02/12/20 Status: OrderedTylenol Extra Strength 500 mg oral tablet 2 tablet = 1,000 mg, By Mouth, 3 times a day, PRN for pain, # 120 tablet, 0 Refills, Maintenance, 09/20/18 23:14:02 EDT, Tablet Start Date: 09/20/18 Status: Ordered Problem List Condition Effective Dates Status Health Status Informant Bicornuate uterus(Confirmed) Active Family history of deafness(Confirmed) Active History of delivery x Active 2(Confirmed) Low weight gain in Active (Confirmed) Hx of Pericardial effusion, Active (Confirmed)1 Request for sterilization(Confirmed) Active [address], tx'd here at [facility]. Social History Social History Type Response Smoking Status Never (less than 100 in life time) entered on: 11/15/19 Sex
--- OUTSIDE RECORDS SUMMARY | 2022-04-16 10:38 | XMS_ITS | Continuity of Care Document ---
:1996 Author Organization [facility] Address [address] [place] [address]- Care Team Providers Name Role Phone Dalia HUMAN RESOURCES OFFICE MANAGER, Katherine Dalton Primary Care Physician Encounter [facility] Date(s): 12/22/19 - 12/29/19 [facility] [address] [place] [address]- [facility] Attending Physician: Susan Rico MD Referring Physician: Shawanda Rivero CNM Allergies, Adverse Reactions, Alerts No Known Medication Allergies Medications colchicine 0.6 mg oral tablet 0.6 mg, By Mouth, 2 times a day, # 60 tablet, Refills 2, Tot. Refills 2, Maintenance, 09/24/18 12:44:21 EDT, Route to Pharmacy Electronically, [id number], [facility] Start Date: 09/24/18 Status: OrderedPrena1 Chew 1.4 mg oral tablet, chewable 1 tablet, Chew, Daily, # 30 tablet, 11 Refills, Maintenance, 11/29/19 20:04:00 EDT, Chew Tablet, [facility], 1 tablet Chew Daily, 164, cm, 11/15/19 10:39:00 EDT, Height, 68.3, kg, 11/15/19 11:10:00 EDT, Dry Weight Start Date: 11/29/19 Status: Orderedpromethazine 12.5 mg rectal suppository 1 supp = 12.5 mg, Rectally, Every 6 hours, PRN for nausea/vomiting, # 40 supp, 1 Refills, Maintenance, 12/03/19 22:27:00 EDT, Suppository, [facility] #[id number], 164, cm, 12/03/19 22:18:00 EDT, Height, 69.6, kg, 12/03/19 21:36:00 EDT, Dry Weight Start Date: 12/03/19 Status: OrderedTylenol Extra Strength 500 mg oral tablet 2 tablet = 1,000 mg, By Mouth, 3 times a day, PRN for pain, # 120 tablet, 0 Refills, Maintenance, 09/20/18 23:14:02 EDT, Tablet Start Date: 09/20/18 Status: OrderedUnisom 25 mg oral tablet 1 tablet = 25 mg, By Mouth, Daily at bedtime, # 30 tablet, 0 Refills, Maintenance, 11/15/19 11:42:00EDT, [facility], 164, cm, 11/15/19 10:39:00 EDT, Height, 68.3, kg, 11/15/19 11:10:00 EDT, Dry Weight Start Date: 11/15/19 Status: OrderedVitamin B6 25 mg oral tablet 1 tablet = 25 mg, By Mouth, 3 times a day, # 100 tablet, 0 Refills, Maintenance, 11/15/19 11:42:00 EDT, [facility], 164, cm, 11/15/19 10:39:00 EDT, Height, 68.3, kg, 11/15/19 11:10:00 EDT, Dry Weight Start Date: 11/15/19 Status: Ordered Problem List Condition Effective Dates Status Health Status Informant Bicornuate uterus(Confirmed) Active BMI 25.0, pre-(Confirmed) Active History of delivery x Active 2(Confirmed) Hx of Pericardial effusion, Active (Confirmed)1 [id number], tx'd here at [facility]. Social History Social History Type Response Smoking Status Never (less than 100 in life time) entered on: 11/15/19 Sex
--- OUTSIDE RECORDS SUMMARY | 2022-04-16 10:38 | XMS_ITS | Continuity of Care Document ---
:1995 Author Organization [facility] Address [address] [place] [address]- Care Team Providers Name Role Phone Dalia CH, Katherine Dalton Primary Care Physician Encounter [facility] Date(s): 11/02/19 - 12/02/[address] [address] [facility] Allergies, Adverse Reactions, Alerts No Known Medication Allergies Medications colchicine 0.6 mg oral tablet 0.6 mg, By Mouth, 2 times a day, # 60 tablet, Refills 2, Tot. Refills 2, Maintenance, 09/24/18 12:44:21 EDT, Route to Pharmacy Electronically, [id number], [facility] Start Date: 09/24/18 Status: OrderedPrena1 Chew 1.4 mg oral tablet, chewable 1 tablet, Chew, Daily, # 30 tablet, 11 Refills, Maintenance, 11/29/19 20:04:00 EDT, Chew Tablet, [facility], 1 tablet Chew Daily, 164, cm, 11/15/19 10:39:00 EDT, Height, 68.3, kg, 11/15/19 11:10:00 EDT, Dry Weight Start Date: 11/29/19 Status: OrderedTylenol Extra Strength 500 mg oral tablet 2 tablet = 1,000 mg, By Mouth, 3 times a day, PRN for pain, # 120 tablet, 0 Refills, Maintenance, 09/20/18 23:14:02 EDT, Tablet Start Date: 09/20/18 Status: OrderedUnisom 25 mg oral tablet 1 tablet = 25 mg, By Mouth, Daily at bedtime, # 30 tablet, 0 Refills, Maintenance, 11/15/19 11:42:00EDT, [facility], 164, cm, 11/15/19 10:39:00 EDT, Height, 68.3, kg, 11/15/19 11:10:00 EDT, Dry Weight Start Date: 11/15/19 Status: OrderedVitamin B6 25 mg oral tablet 1 tablet = 25 mg, By Mouth, 3 times a day, # 100 tablet, 0 Refills, Maintenance, 11/15/19 11:42:00 EDT, [facility], 164, cm, 11/15/19 10:39:00 EDT, Height, 68.3, kg, 11/15/19 11:10:00 EDT, Dry Weight Start Date: 11/15/19 Status: Ordered Problem List Condition Effective Dates Status Health Status Informant Bicornuate uterus(Confirmed) Active BMI 25.0, pre-(Confirmed) Active History of delivery x Active 2(Confirmed) Hx of Pericardial effusion, Active (Confirmed)1 [id number], tx'd here at [facility]. Social History Social History Type Response Smoking Status Never (less than 100 in life time) entered on: 11/15/19 Sex
--- OUTSIDE RECORDS SUMMARY | 2022-04-16 10:38 | XMS_ITS | Continuity of Care Document ---
:1996 Author Organization [facility] Address [address] [place] [phone]- Care Team Providers Name Role Phone Dalia BONE CHAR KILN TENDER, Katherine Dalton Primary [id number] - 07/03/20 [facility] [address] [address] Attending Physician: Justine Downey MD Referring Physician: Ysabel Fitzgerald DO Allergies, Adverse Reactions, Alerts No Known Medication Allergies Immunizations Given and Recorded Vaccine Date Status Refusal Reason influenza virus vaccine, inactivated 01/09/20 Given Medications doxylamine 25 mg oral tablet 1 tablet = 25 mg, By Mouth, Daily, Take one tablet before bed. May take additional tablet in the morning if nausea still persistent, # 60 tablet, 6 Refills, Maintenance, 02/12/20 16:06:00 EST, [facility], Partial fill upon patient... Start Date: 02/12/20 Status: OrderedPrenatal 19 ([place]) oral tablet, chewable 1 tablet, Chew, Daily, # 30 tablet, 11 Refills, Maintenance, 02/12/20 16:06:00 EST, [facility], 1 tablet Chew Daily, 164, cm, 02/12/20 15:34:00 EST, Height, 67, kg, 01/09/20 19:02:00 EDT, Dry Weight Start Date: 02/12/20 Status: OrderedPrometrium 200 mg oral capsule See Instructions, 1 capsule vaginally daily at night, # 30 capsule, 6 Refills, Maintenance, 02/12/2016:06:00 EST, [facility], 164, cm, 02/12/20 15:34:00 EST, Height, [...] effusion, Active (Confirmed)1 Request for sterilization(Confirmed) Active [address], tx'd here at [facility]. Social History Social History Type Response Smoking Status Never (less than 100 in life time) entered on: 11/15/19 Sex
--- OUTSIDE RECORDS SUMMARY | 2022-04-16 10:38 | XMS_ITS | Continuity of Care Document ---
:1995 Author Organization [facility] Address [address] [place] [address]- Care Team Providers Name Role Phone Dalia PIANO AND ORGAN REFINISHER, Katherine Dalton Primary Care Phys[id number] Date(s): 01/26/20 - 05/25/20 [facility] [address] [address] Attending Physician: Shelly Toney MD Referring Physician: Ysabel Fitzgerald DO Allergies, [...] tablet, 6 Refills, Maintenance, 02/12/20 16:06:00 EST, [facility], Partial fill upon patient... Start Date: 02/12/20 Status: OrderedPrenatal 19 ([place]) oral tablet, chewable 1 tablet, Chew, Daily, # 30 tablet, 11 Refills, Maintenance, 02/12/20 16:06:00 EST, [facility], 1 tablet Chew Daily, 164, cm, 02/12/20 15:34:00 EST, Height, 67, kg, 01/09/20 19:02:00 EDT, Dry Weight Start Date: 02/12/20 Status: OrderedPrometrium 200 mg oral capsule See Instructions, 1 capsule vaginally daily at night, # 30 capsule, 6 Refills, Maintenance, 02/12/2016:06:00 EST, [facility], 164, cm, 02/12/20 15:34:00 EST, [...] effusion, Active (Confirmed)1 Request for sterilization(Confirmed) Active [address], tx'd here at [facility]. Social History Social History Type Response Smoking Status Never (less than 100 in life time) entered on: 11/15/19 Sex
[2022-04-16 10:39] LABS: Basophils Percent Auto 0.3 % (0-2); Eosinophils Percent Auto 0.1 % (0-4); Hematocrit 38.3 % (37.0-47.0); Hemoglobin 12.5 g/dl (12.0-16.0); Imm Gran Abs Auto 0.03 X10*3/uL (0.00-0.03); Imm Gran Pct Auto 0.3 % (0.0-0.4); Lymphocytes Absolute Auto 1.3 X10*3/uL (1.2-4.9); Lymphocytes Percent Auto 11.4 % (20-40); Mean Corpuscular HGB Conc 32.6 g/dl (31.0-35.0); Mean Corpuscular Hemoglobin 29.1 pg (27.0-33.0); Mean Corpuscular Volume 89.3 fL (80.0-98.0); Mean Platelet Volume 10.8 fL (9.4-12.3); Monocytes Absolute Auto 0.8 X10*3/uL (0.1-1.2); Neutrophils Absolute Auto 9.3 x10*3/uL (2.0-8.3); Neutrophils Percent Auto 80.9 % (45-73); Platelet Count 269 X10*3/uL (160-400); Red Blood Count 4.29 X10*6/uL (4.20-5.50); Red Cell Distribution Width 13.6 % (11.0-16.0); White Blood Count 11.5 X10*3/uL (4.8-10.8)
[2022-04-16 11:02] LABS: Anion Gap 12 (12-20); Blood Urea Nitrogen 11 mg/dL (9-16); Calcium 9.6 mg/dL (8.4-10.2); Carbon Dioxide 22 mmol/L (22-29); Chloride 111 mmol/L (96-108); Creatinine Clr Calc Pharmacy 76.6; Estimated Glomerular Filt Rate > 60; Glucose Random 105 mg/dL (60-115); Potassium 4.1 mmol/L (3.3-5.1); Sodium 141 mmol/L (135-145)
--- NOTE | 2022-04-16 11:07 | ED_ITS ---
HPI - General Adult General Chief complaint: Nausea/Vomiting/Diarrhea Stated complaint: ear infection Time Seen by Provider: 04/16/22 10:57 Source: patient Limitations: no limitations History of Present Illness HPI narrative: 26-year-old female who was diagnosed with otitis externa yesterday and started on the antibiotics orally and ear drops. Presents with continued left ear pain now has nausea vomiting and some slight diarrhea with decreased p.o. intake. Symptoms are [id number]. Patient denies any abdominal discomfort at this time. Patient concerned she is not taking enough p.o. intake. No new sick contacts or travel history. No other complaints at this time. Related Data Previous Rx's Medication Instructions Recorded acetaminophen 500 mg tablet 500 mg PO Q6H PRN fever or pain 04/15/22 (Tylenol Extra Strength) #14 tabs amoxicillin 875 mg-potassium 1 tab PO BID 7 days #14 tabs 04/15/22 clavulanate 125 mg tablet ciprofloxacin 0.3 %-dexamethasone 4 drp otic (ears) BID 7 days #7.5 04/15/22 0.1 % ear drops,suspension mL (Ciprodex) ibuprofen 800 mg tablet 800 mg PO Q8H PRN pain #14 tabs 04/15/22 ondansetron 4 mg disintegrating 4 mg PO Q8H PRN nausea and 04/16/22 tablet vomiting #10 tabs Allergies Allergy/AdvReac Type Severity Reaction Status Date / Time No Known Allergies Allergy Unknown UNKNOWN Verified 07/14/21 15:54 [NO KNOWN ALLERGIES] Review of Systems Review of Systems: Constitutional : No Weight loss, No Fever, No Chills, ENT/Mouth : Left-sided ear pain. Eyes: No vision changes Cardiovascular : No chest pain palpitations Respiratory : No shortness of breath no cough Gastrointestinal : Positive nausea vomiting and some slight diarrhea no abdominal pain Musculoskeletal : No joint pain, No Myalgias, No Joint SwellingSkin : No Skin Lesions, No rash Neuro : Positive weakness positive headache Psych : No Anxiety/Panic, No Depression, No SI/HI/AH/VH, No Social Issues, Heme/Lymph: No Bruising, No Bleeding,No Lymphadenopathy Endocrine : No Polyuria, No Polydipsia, No Temperature Intolerance PMFSH Past Medical History Medical History Cardiac abnormality No pertinent past medical history Pericardial effusion Surgical History Hx of tonsillectomy Family History Family History Father No problems noted. Mother No problems noted. Social History Social History Patient Tobacco Use Status: Never used Tobacco Advance Directives: No Physical Exam ED Vital Signs: Vital Signs - 24 hr 04/16/22 10:15 Temperature 98.4 F Pulse Rate 77 Respiratory Rate 16 Blood Pressure 139/72 Pulse Oximetry 98 Oxygen Delivery Method Room Air BMI result Body Mass Index 23.3 vital signs have been reviewed as normal and appeared to be correct. Blood pressure normal. Heart rate normal. Respiration rate normal. Temperature normal. Oxygen saturation normal. Appearance: Alert. Oriented X3. No acute distress. Head: Normal external exam. Normocephalic. Atraumatic. Eyes: PERRLA. EOMI. Conjunctiva and sclera normal. Eyelids normal. ENT: Left ear canal edema noted question fluid behind the eardrum slight eryth aliya noted no purulent discharge. Oropharynx is clear Neck: Soft full range of motion, no nuchal rigidity CVS: Heart regular rate and rhythm no murmurs and rubs Respiratory: Breath sounds are clear to auscultation bilaterally. No accessory muscle use noted. Abdomen: Soft nontender no rebound or guarding positive bowel sounds Back: Full range of motion noted. Skin: Skin warm and dry. No rashes ecchymosis noted Extremities: No lower extremity edema. Extremities exhibit normal range of mo tion. Extremities nontender. Neuro: Oriented X 3. No motor deficit. No sensory deficit. Reflexes normal. Course Course Course Narrative: Viral syndrome Left otitis media externa Nausea vomiting Diarrhea Medication side effect Medications Administered Discontinued Medications Generic Name Dose Route Start Last Admin Trade Name Freq PRN Reason Stop Dose Admin Sodium Chloride 1,000 mls @ 999 mls/hr 04/16/22 11:15 04/16/22 12:57 Ns IV 04/16/22 12:15 Infused .Q1H1M [place] Infusion Ondansetron HCl 4 mg 04/16/22 10:15 04/16/22 10:21 Ondansetron Odt 4 Mg Tab.Rapdis TRANSLINGU 04/16/22 10:16 4 mg ONCE ONE Administration Medical Decision Making Medical Decision Making [facility] Narrative: 26-year-old female who returns to the ER with complaints of decreased p.o. intake nausea vomiting and new onset of some loose diarrhea. Recently diagnosed with a left otitis externa start on Cipro otic and amoxicillin. Patient states she is really concerned that she is not taking enough fluids at this time. Has been taking medications without an issue. Denies history of . CBC BMP is pending UA UA hCG pending 1000 mL normal saline IV bolus 12:17 patient tolerating p.o. well at this time. Patient's symptoms have improved patient will be instructed to continue antibiotics will discharge patient home on Zofran at this time. Lab Data 04/16/22 10:32 04/16/22 10:32 Labs: Lab Results 04/16/22 04/16/22 04/16/22 Range/Units 10:32 10:32 12:49 WBC 11.5 H (4.8-10.8) X10*3/uL RBC 4.29 (4.20-5.50) X10*6/uL Hgb 12.5 (12.0-16.0) g/dl Hct 38.3 (37.0-47.0) % MCV 89.3 (80.0-98.0) fL MCH 29.1 (27.0-33.0) pg MCHC 32.6 (31.0-35.0) g/dl RDW 13.6 (11.0-16.0) % Plt Count 269 (160-400) X10*3/uL MPV 10.8 (9.4-12.3) fL Immature Gran % (Auto) 0.3 (0.0-0.4) % Neut % (Auto) 80.9 H (45-73) % Lymph % (Auto) 11.4 L (20-40) % [place] % (Auto) 7.0 (2-11) % Eos % (Auto) 0.1 (0-4) % Baso % (Auto) 0.3 (0-2) % Lymph # (Auto) 1.3 (1.2-4.9) X10*3/uL [place] # (Auto) 0.8 (0.1-1.2) X10*3/uL Eos # (Auto) 0.0 (0.0-0.4) X10*3/uL Baso # (Auto) 0.0 (0.0-0.2) X10*3/uL Abs Immat Gran (auto) 0.03 (0.00-0.03) X10*3/uL Absolute Neuts (auto) 9.3 H (2.0-8.3) x10*3/uL Absolute Nucleated RBC 0.000 (0.0-0.012) X10*3/uL Nucleated RBC % (auto) 0.0 (0.0-0.2) /100WBC Sodium 141 (135-145) mmol/L Potassium 4.1 (3.3-5.1) mmol/L Chloride 111 H (96-108) mmol/L Carbon Dioxide 22 (22-29) mmol/L Anion Gap 12 (12-20) BUN 11 (9-16) mg/dL Creatinine 1.01 (0.5-1.4) mg/dL Estim Creat Clear Calc 76.6 Estimated GFR > 60 Random Glucose 105 (60-115) mg/dL Calcium 9.6 (8.4-10.2) mg/dL Urine Color Yellow Urine Appearance Cloudy Urine pH 5.5 (5.0-9.0) Ur Specific [place] <= 1.005 (1.005-1.025) Urine Protein Negative (Neg-Trace) mg/dL Urine Glucose (UA) Negative (Negative) mg/dL Urine Ketones Negative (Negative) mg/dL Urine Blood Trace H (Negative) Urine Nitrite Negative (Negative) Ur Leukocyte Esterase Trace H (Negative) Urine RBC 0-2 (0-2) /HPF Urine WBC 0-5 (0-5) /HPF Ur Squamous Epith Cells 3-5 (0-2) /HPF Urine Bacteria None Seen (None Seen) Hyaline Casts 0-2 (0-2) /LPF Urine Test (NEGATIVE) 04/16/22 Range/Units 12:49 WBC (4.8-10.8) X10*3/uL RBC (4.20-5.50) X10*6/uL Hgb (12.0-16.0) g/dl Hct (37.0-47.0) % MCV (80.0-98.0) fL MCH (27.0-33.0) pg MCHC (31.0-35.0) g/dl RDW (11.0-16.0) % Plt Count (160-400) X10*3/uL MPV (9.4-12.3) fL Immature Gran % (Auto) (0.0-0.4) % Neut % (Auto) (45-73) % Lymph % (Auto) (20-40) % [place] % (Auto) (2-11) % Eos % (Auto) (0-4) % Baso % (Auto) (0-2) % Lymph # (Auto) (1.2-4.9) X10*3/uL [place] # (Auto) (0.1-1.2) X10*3/uL Eos # (Auto) (0.0-0.4) X10*3/uL Baso # (Auto) (0.0-0.2) X10*3/uL Abs Immat Gran (auto) (0.00-0.03) X10*3/uL Absolute Neuts (auto) (2.0-8.3) x10*3/uL Absolute Nucleated RBC (0.0-0.012) X10*3/uL Nucleated RBC % (auto) (0.0-0.2) /100WBC Sodium (135-145) mmol/L Potassium (3.3-5.1) mmol/L Chloride (96-108) mmol/L Carbon Dioxide (22-29) mmol/L Anion Gap (12-20) BUN (9-16) mg/dL Creatinine (0.5-1.4) mg/dL Estim Creat Clear Calc Estimated GFR Random Glucose (60-115) mg/dL Calcium (8.4-10.2) mg/dL Urine Color Urine Appearance Urine pH (5.0-9.0) Ur Specific [place] (1.005-1.025) Urine Protein (Neg-Trace) mg/dL Urine Glucose (UA) (Negative) mg/dL Urine Ketones (Negative) mg/dL Urine Blood (Negative) Urine Nitrite (Negative) Ur Leukocyte Esterase (Negative) Urine RBC (0-2) /HPF Urine WBC (0-5) /HPF Ur Squamous Epith Cells (0-2) /HPF Urine Bacteria (None Seen) Hyaline Casts (0-2) /LPF Urine Test NEGATIVE (NEGATIVE) Discharge Plan Discharge Clinical Impression: Nausea and vomiting, Dehydration Patient Disposition: Home, Self-Care Instructions: Dehydration (ED), Acute Nausea and Vomiting (ED) Additional Instructions: [place] diet increase fluids rest You received IV fluids to treat dehydration Follow-up with a PCP return if symptoms worsen Continue current antibiotics Prescriptions: New ondansetron 4 mg tablet,disintegrating 4 mg PO Q8H PRN (Reason: nausea and vomiting) Qty: 10 0RF No Action ibuprofen 800 mg tablet 800 mg PO Q8H PRN (Reason: pain) Qty: 14 0RF acetaminophen [Tylenol Extra Strength] 500 mg tablet 500 mg PO Q6H PRN (Reason: fever or pain) Qty: 14 0RF amoxicillin-pot clavulanate 875-125 mg tablet 1 tab PO BID 7 Days Qty: 14 0RF ciprofloxacin-dexamethasone [Ciprodex] 0.3-0.1 % drops,suspension 4 drp otic (ears) BID 7 Days Qty: 7.5 0RF Stand Alone Forms: Work/School Release
[2022-04-16] MEDS: 0.9 % Sodium Chloride 1,000 ML 999 ML IV (11:38)
[2022-04-16 13:00] LABS: Appearance Urine Cloudy; Color Urine Yellow; Glucose Urine UA Negative (Negative); Leukocyte Esterase Urine Trace (Negative); Nitrite Urine Negative (Negative); PH 5.5 (5.0-9.0); Specific Gravity - Urine <= 1.005 (1.005-1.025); UMIC TRIGGER UACC YES; Urine Blood Trace (Negative); Urine Ketones Negative (Negative); Urine Protein Negative (Neg-Trace)
[2022-04-16 13:02] LABS: UPreg QC Valid YES; Urine Pregnancy NEGATIVE (NEGATIVE)
[2022-04-16 13:05] LABS: Bacteria Urine None Seen (None Seen); Hyaline Casts Urine 0-2 /LPF (0-2); RBC Urine 0-2 /HPF (0-2); WBC Urine 0-5 /HPF (0-5)
[2022-04-16 13:35] VITALS: BP 134/78; PULSE 71; RESP 16; TEMP 36.8; O2SAT 100
== END 2022-04-16 13:39 | disposition home or self-care (01) ==
PROVIDERS: Nurse Practitioner Family; Physician Assistant; Emergency Provider Student in an Organized Health Care Education/Training Program
DX: R11.2 Nausea with vomiting, unspecified (principal); E86.0 Dehydration; Z79.899 Other long term (current) drug therapy
CPT/HCPCS: 36415; 80048; 81001; 81003; 81025; 85025; 96360; 99283; 99284

== ENCOUNTER 2022-09-11 21:53 | Emergency (ER) | payer MEDICAID, SELFPAY ==
--- NOTE | ~2022-09-11 | XR_ITS ---
EXAMINATION: XR CHEST CLINICAL INFORMATION: Cough. COMPARISON: None available. TECHNIQUE: Frontal view of the chest was obtained. FINDINGS: The lungs are well-expanded and clear of acute process. The heart size and pulmonary vascularity is normal. There is mild dextroscoliosis of dorsal spine. No aggressive lytic or sclerotic process seen XR/XR chest 1V IMPRESSION: Unremarkable chest exam
[2022-09-11 23:16] VITALS: BP 114/69; PULSE 95; RESP 18; TEMP 37.3; O2SAT 97; BMI 22.3
--- OUTSIDE RECORDS SUMMARY | 2022-09-11 23:54 | XMS_ITS | Continuity of Care Document ---
Author Name Unknown Organization [facility] [employer] Address [address] [place] [address], [address] [place] [address]- Care Team Providers Care Deputy Sheriff Lieutenant Name Role Phone Dalia FIELD REP, Katherine Dalton Primary Care Physician Encounter [facility] Date(s): 03/05/20 - 04/04/20 [facility] [employer] [facility] [address] [facility] [place], [place] [address] Allergies, Adverse Reactions, Alerts No Known Medication Allergies Immunizations Given and Recorded Vaccine Date Status Refusal Reason influenza virus vaccine, inactivated 01/09/20 Give n Medications doxylamine 25 mg oral tablet 1 tablet = 25 mg, By Mouth, Daily, Take one tablet before bed. May take additional tablet in the morning if nausea still persistent, # 60 tablet, 6 Refills, Maintenance, 02/12/20 16:06:00 EST, [facility], Partial fill upon patient... Start Date: 02/12/20 Status: Ordered 19 ([place]) oral tablet, chewable 1 tablet, Chew, Daily, # 30 tablet, 11 Refills, Maintenance, 02/12/20 16:06:00 EST, [facility], 1 tablet Chew Daily, 164, cm, 02/12/20 15:34:00 EST, Height, 67, kg, 01/09/20 19:02:00 EDT, Dry Weight Start Date: 02/12/20 Status: Ordered Prometrium 200 mg oral capsule See Instructions, 1 capsule vaginally daily at night, # 30 capsule, 6 Refills, Maintenance, 02/12/20 16:06:00 EST, [facility], 164, cm, 02/12/20 15:34:00 EST, Height, 67, kg, 01/09/20 19:02:00 EDT, Dry Weight Start Date: 02/12/20 Status: Ordered Tylenol Extra Strength 500 mg oral tablet 2 tablet = 1,000 mg, By Mouth, 3 times a day, PRN for pain, # 120 tablet, 0 Refills, Maintenance, 09/20/18 23:14:02 EDT, Tablet Start Date: 09/20/18 Status: Ordered Problem List Condition Effective Dates Status Health Status Inform ant Bicornuate uterus(Confirmed) Active Family history of deafness(Confirmed) Active History of delivery x 2(Confirmed) Active Low weight gain in (Confirmed) Active Hx of Pericardial effusion, (Confirmed) 1 Active Request for sterilization(Confirmed) Active [address], tx'd here at [facility]. Social History Social History Type Response Smoking Status Never (less than 100 in lifetime) entered on: 11/15/19 Sex
--- OUTSIDE RECORDS SUMMARY | 2022-09-11 23:54 | XMS_ITS | Continuity of Care Document ---
Author Name Unknown Organization [facility] [employer]oranela Saldaña [employer] Address [address] [facility], [address] [place] [address]- Care Team Providers Care Ink Maker Name Role Phone Dalia CH, Katherine Dalton Primary Care Physician [id number] Date(s): 07/01/20 - 07/31/20 [facility] [employer] [facility] [address] [facility], [address]th [place] [address]- Attending Physician: Kari Waller Admitting Physician: Kari Waller Referring Physician: AdmtrKari Allergies, Adverse Reactions, Alerts No Known Medication Allergies Immunizations Given and Recorded Vaccine Date Status Refusal Reason influenza virus vaccine, inactivated 01/09/20 Give n Medications doxylamine 25 mg oral tablet 1 tablet = 25 mg, By Mouth, Daily, Take one tablet before bed. May take additional tablet in the morning if nausea still persistent, # 60 tablet, 6 Refills, Maintenance, 02/12/20 16:06:00 EST, [facility], Partial fill upon patient... Start Date: 02/12/20 Status: Ordered 19 ([place]) oral tablet, chewable 1 tablet, Chew, Daily, # 30 tablet, 11 Refills, Maintenance, 02/12/20 16:06:00 EST, [facility], 1 tablet Chew Daily, 164, cm, 02/12/20 15:34:00 EST, Height, 67, kg, 01/09/20 19:02:00 EDT, Dry Weight Start Date: 02/12/20 Status: Ordered Prometrium 200 mg oral capsule See Instructions, 1 capsule vaginally daily at night, # 30 capsule, 6 Refills, Maintenance, 02/12/20 16:06:00 EST, [facility], 164, cm, 02/12/20 15:34:00 EST, [...] (Confirmed) 1 Active Request for sterilization(Confirmed) Active 89772, tx'd here at [facility]. Social History Social History Type Response Smoking Status Never (less than 100 in lifetime) entered on: 11/15/19 Sex
--- OUTSIDE RECORDS SUMMARY | 2022-09-11 23:54 | XMS_ITS | Continuity of Care Document ---
Author Name Unknown Organization [facility] Evelinenela Saldaña [employer] Address [address] [place] [address], [address]t [place] [address]- Care Team Providers Care Senior Account Director Name Role Phone Dalia ACCOUNTS PAYABLE ACCOUNTANT, Katherine Dalton Primary Care Physician [phone] [id number] Date[facility]20 - 06[facility]12/20 [facility] [address] [facility], [address] [place], [place] [address] Attending Physician: Justine Downey MD Referring Physician: [...] tablet, 6 Refills, Maintenance, 02/12/20 16:06:00 EST, [facility], Partial fill upon patient... Start Date: 02/12/20 Status: Ordered 19 ([place]) oral tablet, chewable 1 tablet, Chew, Daily, # 30 tablet, 11 Refills, Maintenance, 02/12/20 16:06:00 EST, [facility], 1 tablet Chew Daily, 164, cm, 02/12/20 15:34:00 EST, Height, 67, kg, 01/09/20 19:02:00 EDT, Dry Weight Start Date: 02/12/20 Status: Ordered Prometrium 200 mg oral capsule See Instructions, 1 capsule vaginally daily at night, # 30 capsule, 6 Refills, Maintenance, 02/12/20 16:06:00 EST, [facility], 164, cm, 02/12/20 15:34:00 EST, Height, [...] (Confirmed) 1 Active Request for sterilization(Confirmed) Active 39005, tx'd here at [facility]. Social History Social History Type Response Smoking Status Never (less than 100 in lifetime) entered on: 11/15/19 Sex
--- OUTSIDE RECORDS SUMMARY | 2022-09-11 23:54 | XMS_ITS | Continuity of Care Document ---
Author Name Unknown Organization [facility] Address [address] [address]- Care Team Providers Care Rigging Helper Name Role Phone Dalia CH, Katherine Dalton Primary Care Physician En[facility] Date(s): 11/29/19 - 12/29/19 [facility] [address] [place] [address] [facility] Allergies, Adverse Reactions, Alerts No Known Medication Allergies Medications colchicine 0.6 mg oral tablet 0.6 mg, By Mouth, 2 times a day, # 60 tablet, Refills 2, Tot. Refills 2, Maintenance, 09/24/18 12:44:21 EDT, Route to Pharmacy Electronically, [id number], [facility] Start Date: 09/24/18 Status: Ordered Prena1 Chew 1.4 mg oral tablet, chewable 1 tablet, Chew, Daily, # 30 tablet, 11 Refills, Maintenance, 11/29/19 20:04:00 EDT, Chew Tablet, [facility], 1 tablet Chew Daily, 164, cm, 11/15/19 10:39:00 EDT, Height, 68.3, kg,11/15/19 11:10:00 EDT, Dry Weight Start Date: 11/29/19 Status: Ordered promethazine 12.5 mg rectal suppository 1 supp = 12.5 mg, Rectally, Every 6 hours, PRN for nausea/vomiting, # 40 supp, 1 Refills, Maintenance, 12/03/19 22:27:00 EDT, Suppository, [id number], 164, cm, 12/03/19 22:18:00 EDT, Height, 69.6, kg, 12/03/19 21:36:00 EDT, Dry Weight Start Date: 12/03/19 Status: Ordered Tylenol Extra Strength 500 mg oral tablet 2 tablet = 1,000 mg, By Mouth, 3 times a day, PRN for pain, # 120 tablet, 0 Refills, Maintenance, 09/20/18 23:14:02 EDT, Tablet Start Date: 09/20/18 Status: Ordered Unisom 25 mg oral tablet 1 tablet = 25 mg, By Mouth, Daily at bedtime, # 30 tablet, 0 Refills, Maintenance, 11/15/19 11:42:00 EDT, [facility], 164, cm, 11/15/19 10:39:00 EDT, Height, 68.3, kg, 11/15/19 11:10:00 EDT, Dry Weight Start Date: 11/15/19 Status: Ordered Vitamin B6 25 mg oral tablet 1 tablet = 25 mg, By Mouth, 3 times a day, # 100 tablet, 0 Refills, Maintenance, 11/15/19 11:42:00 EDT, [facility], 164, cm, 11/15/19 10:39:00 EDT, Height, 68.3, kg, 11/15/19 11:10:00 EDT, Dry Weight Start Date: 11/15/19 Status: Ordered Problem List Condition Effective Dates Status Health Status Inform ant Bicornuate uterus(Confirmed) Active BMI 25.0, pre-(Confirmed) Active History of delivery x 2(Confirmed) Active Hx of Pericardial effusion, (Confirmed) 1 Active 64658, tx'd here at [facility]. Social History Social History Type Response Smoking Status Never (less than 100 in lifetime) entered on: 11/15/19 Sex
--- OUTSIDE RECORDS SUMMARY | 2022-09-11 23:54 | XMS_ITS | Continuity of Care Document ---
Author Name Unknown Organization [facility] [employer] Address [address] [place] [address], [place] [address]- Care Team Providers Care Labor Contract Analyst Name Role Phone Dalia CH, Katherine Dalton Primary Care Physician [place] [facility] [place] 11/30/19 - 01/25/20 [facility] [employer] [address] [facility], [address] [place], [place] [address] Attending Physician: Ambika Carroll MD Referring Physician: Shawanda Rivero CNM Allergies, Adverse Reactions, Alerts No Known Medication Allergies Immunizations Given and Recorded Vaccine Date Status Refusal Reason influenza virus vaccine, inactivated 01/09/20 Give n Medications 19 ([place]) oral tablet, chewable 1 tablet, Chew, Daily, # 30 tablet, 11 Refills, Maintenance, 01/10/20 13:50:00 EDT, [facility], 1 tablet Chew Daily, 164, cm, 01/09/20 19:02:00 EDT, Height, 67, kg, 01/09/20 19:02:00 EDT, Dry Weight Start Date: 01/10/20 Status: Ordered Prometrium 200 mg oral capsule See Instructions, 1 capsule vaginally daily at night, # 30 capsule, 6 Refills, Maintenance, 01/09/20 19:42:00 EDT, [facility], 164, cm, 01/09/20 19:02:00 EDT, Height, 67, kg, 01/09/20 19:02:00 EDT, Dry Weight Start Date: 01/09/20 Status: Ordered Tylenol Extra Strength 500 mg [...] (Confirmed) 1 Active Request for sterilization(Confirmed) Active 96688, tx'd here at [facility]. Social History Social History Type Response Smoking Status Never (less than 100 in lifetime) entered on: 11/15/19 Sex
--- OUTSIDE RECORDS SUMMARY | 2022-09-11 23:54 | XMS_ITS | Continuity of Care Document ---
Author Name Unknown Organization [facility] [employer] Address [address] [place] [address], [address] [address]- Care Team Providers Care Aircraft Refueler Name Role Phone Dalia CH, Katherine Dalton Primary Care Physician [id number] Date(s): 01/10/20 - 03/09/20 [facility] [email or web address] [address] [facility], [address] [place] [address]- Attending Physician: Ruben LIZARRAGA, Ray Storm Referring Physician: Ysabel Fitzgerald DO Allergies, Adverse [...] tablet, 6 Refills, Maintenance, 02/12/20 16:06:00 EST, [facility], Partial fill upon patient... Start Date: 02/12/20 Status: Ordered Macrobid macrocrystals-monohydrate 100 mg oral capsule 1 capsule = 100 mg, By Mouth, 2 times a day, for 5 days, # 10 capsule, 0 Refills, Acute 03/10/20 21:42:00 EST, 03/05/20 21:42:00 EST, Capsule, [facility], Partial fill upon patient request if the prescription is for a schedule II o... Start Date: 03/05/20 Stop Date: 03/10/20 Status: Ordered 19 ([place]) oral tablet, chewable 1 tablet, Chew, Daily, # 30 tablet, 11 Refills, Maintenance, 02/12/20 16:06:00 EST, [facility], 1 tablet Chew Daily, 164, cm, 02/12/20 15:34:00 EST, Height, 67, kg, 01/09/20 19:02:00 EDT, Dry Weight Start Date: 02/12/20 Status: Ordered Prometrium 200 mg oral capsule See Instructions, 1 capsule vaginally daily at night, # 30 capsule, 6 Refills, Maintenance, 02/12/20 16:06:00 EST, [facility], 164, cm, 02/12/20 15:34:00 EST, Height, [...] (Confirmed) 1 Active Request for sterilization(Confirmed) Active 22140, tx'd here at [facility]. Social History Social History Type Response Smoking Status Never (less than 100 in lifetime) entered on: 11/15/19 Sex
--- OUTSIDE RECORDS SUMMARY | 2022-09-11 23:54 | XMS_ITS | Continuity of Care Document ---
Author Name Unknown Organization [facility] Evelinenela Saldaña [employer] Address [address] [place] [address], [address] [address]- Care Team Providers Care Rfid Analyst Name Role Phone Dalia BRINE PURIFIER, Katherine Dalton Primary Care Phys[id number] Date[facility]s): 01/10/20 - 04/10/20 [facility] [email or web address] [address] [facility], [address] [place], [place] [address] Attending Physician: Justine Downey MD [...] patient... Start Date: 02/12/20 Status: Ordered 19 ([place]) oral tablet, chewable 1 tablet, Chew, Daily, [...] (Confirmed) 1 Active Request for sterilization(Confirmed) Active 12987, tx'd here at [facility]. Social History Social History Type Response Smoking Status Never (less than 100 in lifetime) entered on: 11/15/19 Sex
--- OUTSIDE RECORDS SUMMARY | 2022-09-11 23:54 | XMS_ITS | Continuity of Care Document ---
Author Name Unknown Organization [facility] Address [address] [address]- Care Team Providers Care Fire Control Assistant Name Role Phone Dalia CH, Katherine Dalton Primary Care Physician Encounter [facility] Date(s): 11/29/19 - 12/29/19 [facility] [address] [place] [address] [facility] Attending Physician: Kari Waller Admitting Physician: AdmtrKari Referring Physician: Admtr ArJean Pierre Allergies, Adverse Reactions, Alerts No Known Medication Allergies Medications colchicine 0.6 mg oral tablet 0.6 mg, By Mouth, 2 times a day, # 60 tablet, Refills 2, Tot. Refills 2, Maintenance, 09/24/18 12:44:21 EDT, Route to Pharmacy Electronically, [id number], [facility] Start Date: 09/24/18 Status: Ordered Prena1 Chew 1.4 mg oral tablet, chewable 1 tablet, Chew, Daily, # 30 tablet, 11 Refills, Maintenance, 11/29/19 20:04:00 EDT, Chew Tablet, [facility], 1 tablet Chew Daily, 164, cm, 11/15/19 10:39:00 EDT, Height, 68.3, kg,11/15/19 11:10:00 EDT, Dry Weight Start Date: 11/29/19 Status: Ordered promethazine 12.5 mg rectal suppository 1 supp = 12.5 mg, Rectally, Every 6 hours, PRN for nausea/vomiting, # 40 supp, 1 Refills, Maintenance, 12/03/19 22:27:00 EDT, Suppository, [id number], 164, cm, 12/03/19 22:18:00 EDT, Height, [...] tablet, 0 Refills, Maintenance, 11/15/19 11:42:00 EDT, [facility], 164, cm, 11/15/19 10:39:00 EDT, Height, 68.3, kg, 11/15/19 11:10:00 EDT, Dry Weight Start Date: 11/15/19 Status: Ordered Vitamin B6 25 mg oral tablet 1 tablet = 25 mg, By Mouth, 3 times a day, # 100 tablet, 0 Refills, Maintenance, 11/15/19 11:42:00 EDT, [facility], 164, cm, 11/15/19 10:39:00 EDT, Height, 68.3, kg, 11/15/19 11:10:00 EDT, Dry Weight Start Date: 11/15/19 Status: Ordered Problem List Condition Effective Dates Status Health Status Inform ant Bicornuate uterus(Confirmed) Active BMI 25.0, pre-(Confirmed) Active History of delivery x 2(Confirmed) Active Hx of Pericardial effusion, (Confirmed) 1 Active 96341, tx'd here at [facility]. Social History Social History Type Response Smoking Status Never (less than 100 in lifetime) entered on: 11/15/19 Sex
--- OUTSIDE RECORDS SUMMARY | 2022-09-11 23:54 | XMS_ITS | Continuity of Care Document ---
Author Name Unknown Organization [facility] [employer] Address [address] [place] [address], [address] [place] [address]- Care Team Providers Care Agricultural Engineering Teacher Name Role Phone Dalia CH, Katherine Dalton Primary Care Phys[id number] Date(s): 02/27[facility]20 - 03/05/20 [facility] [employer] [facility] [address] [facility], [address] [place], [place] [email or web address] Attending Physician: Ysabel Fitzgerald DO Allergies, Adverse Reactions, [...] 6 Refills, Maintenance, 02/12/20 16:06:00 EST, [facility], Partial fill upon patient... Start Date: 02/12/20 Status: Ordered Macrobid macrocrystals-monohydrate 100 mg oral capsule 1 capsule = 100 mg, By Mouth, 2 times a day, for 5 days, # 10 capsule, 0 Refills, Acute 03/10/20 21:42:00 EST, 03/05/20 21:42:00 EST, Capsule, [facility], Partial fill upon patient request if the prescription is for a schedule II o... Start Date: 03/05/20 Stop Date: 03/10/20 Status: Ordered 19 ([place]) oral tablet, chewable 1 tablet, Chew, Daily, # 30 tablet, 11 Refills, Maintenance, 02/12/20 16:06:00 EST, [facility], 1 tablet Chew Daily, 164, cm, 02/12/20 15:34:00 EST, Height, 67, kg, 01/09/20 19:02:00 EDT, Dry Weight Start Date: 02/12/20 Status: Ordered Prometrium 200 mg oral capsule See Instructions, 1 capsule vaginally daily at night, # 30 capsule, 6 Refills, Maintenance, 02/12/20 16:06:00 EST, [facility], 164, cm, 02/12/20 15:34:00 EST, [...] (Confirmed) 1 Active Request for sterilization(Confirmed) Active 97899, tx'd here at [facility]. Social History Social History Type Response Smoking Status Never (less than 100 in lifetime) entered on: 11/15/19 Sex
--- OUTSIDE RECORDS SUMMARY | 2022-09-11 23:54 | XMS_ITS | Continuity of Care Document ---
Author Name Unknown Organization [facility] Fitz[employer]ela Saldaña [employer] Address [address] [place] [address], [address] [place] [address]- Care Team Providers Care Manager Technical Training Name Role Phone Dalia SENIOR NUCLEAR MEDICINE TECHNOLOGIST, Katherine Dalton Primary Care Physician [id number] Date(s[facility] 03/26/20 - 07/24/20 [facility] [employer] [address] [facility], [address] [place], [place] [address] Attending Physician: Justine Downey MD Referring Physician: [...] tablet, 6 Refills, Maintenance, 02/12/20 16:06:00 EST, [facility], Partial fill upon patient... Start Date: 02/12/20 Status: Ordered 19 ([place]) oral tablet, chewable 1 tablet, Chew, Daily, # 30 tablet, 11 Refills, Maintenance, 02/12/20 16:06:00 EST, [facility], 1 tablet Chew Daily, 164, cm, 02/12/20 15:34:00 EST, Height, 67, kg, 01/09/20 19:02:00 EDT, Dry Weight Start Date: 02/12/20 Status: Ordered Prometrium 200 mg oral capsule See Instructions, 1 capsule vaginally daily at night, # 30 capsule, 6 Refills, Maintenance, 02/12/20 16:06:00 EST, [facility], 164, cm, 02/12/20 15:34:00 EST, [...] (Confirmed) 1 Active Request for sterilization(Confirmed) Active 93623, tx'd here at [facility]. Social History Social History Type Response Smoking Status Never (less than 100 in lifetime) entered on: 11/15/19 Sex
--- OUTSIDE RECORDS SUMMARY | 2022-09-11 23:55 | XMS_ITS | Continuity of Care Document ---
Author Name Unknown Organization [facility] Address [address] [place] [address]- Care Team Providers Care Radio Repairer Name Role Phone Katherine Gómez NP Primary Care Physician [phone] En[place] [facility] Date(s): 12/07/19 - 01/06/20 [facility] and [address] [address] [facility] Allergies, Adverse Reactions, Alerts No Known Medication Allergies Medications colchicine 0.6 mg oral tablet 0.6 mg, By Mouth, 2 times a day, # 60 tablet, Refills 2, Tot. Refills 2, Maintenance, 09/24/18 12:44:21 EDT, Route to Pharmacy Electronically, [id number], [facility] Start Date: 09/24/18 Status: Ordered Prena1 Chew 1.4 mg oral tablet, chewable 1 tablet, Chew, Daily, # 30 tablet, 11 Refills, Maintenance, 11/29/19 20:04:00 EDT, Chew Tablet, [facility], 1 tablet Chew Daily, 164, [...] tablet, 0 Refills, Maintenance, 11/15/19 11:42:00 EDT, [facility], 164, cm, 11/15/19 10:39:00 EDT, Height, 68.3, kg, 11/15/19 11:10:00 EDT, Dry Weight Start Date: 11/15/19 Status: Ordered Vitamin B6 25 mg oral tablet 1 tablet = 25 mg, By Mouth, 3 times a day, # 100 tablet, 0 Refills, Maintenance, 11/15/19 11:42:00 EDT, [facility], 164, cm, 11/15/19 10:39:00 EDT, Height, 68.3, kg, 11/15/19 11:10:00 EDT, Dry Weight Start Date: 11/15/19 Status: Ordered Problem List Condition Effective Dates Status Health Status Inform ant Bicornuate uterus(Confirmed) Active BMI 25.0, pre-(Confirmed) Active History of delivery x 2(Confirmed) Active Hx of Pericardial effusion, (Confirmed) 1 Active 36097, tx'd here at [facility]. Social History Social History Type Response Smoking Status Never (less than 100 in lifetime) entered on: 11/15/19 Sex
--- OUTSIDE RECORDS SUMMARY | 2022-09-11 23:55 | XMS_ITS | Continuity of Care Document ---
Author Name Unknown Organization [facility] Address [address] [place] [address]- Care Team Providers Care Director Of Learning Name Role Phone Katherine Gómez NP Primary Care Physician [place] [facility] Date(s): 02/12/20 - 03/14/20 [facility] and [address] [address] Attending Physician: Not on Staff, Attending MD Referring Physician: Shayan LIZARRAGA, Justine Muñoz Allergies, [...] tablet, 6 Refills, Maintenance, 02/12/20 16:06:00 EST, [facility], Partial fill upon patient... Start Date: 02/12/20 Status: Ordered 19 ([place]) oral tablet, chewable 1 tablet, Chew, Daily, # 30 tablet, 11 Refills, Maintenance, 02/12/20 16:06:00 EST, [facility], 1 tablet Chew Daily, 164, cm, 02/12/20 15:34:00 EST, Height, 67, kg, 01/09/20 19:02:00 EDT, Dry Weight Start Date: 02/12/20 Status: Ordered Prometrium 200 mg oral capsule See Instructions, 1 capsule vaginally daily at night, # 30 capsule, 6 Refills, Maintenance, 02/12/20 16:06:00 EST, [facility], 164, cm, 02/12/20 15:34:00 EST, [...] (Confirmed) 1 Active Request for sterilization(Confirmed) Active 76572, tx'd here at [facility]. Social History Social History Type Response Smoking Status Never (less than 100 in lifetime) entered on: 11/15/19 Sex
--- OUTSIDE RECORDS SUMMARY | 2022-09-11 23:55 | XMS_ITS | Continuity of Care Document ---
Author Name Unknown Organization [facility] Address [address] [place] [address]- Care Team Providers Care Laborer Brooder Farm Name Role Phone Katherine Gómez NP Primary Care Physician [place] [facility] [place]s): 02/13/20 - 03/14/20 [facility] [address] [address] Attending Physician: Kari Waller Admitting Physician: Kari Waller Referring Physician: Admtr ArJean Pierre Allergies, Adverse [...] tablet, 6 Refills, Maintenance, 02/12/20 16:06:00 EST, [facility], Partial fill upon patient... Start Date: 02/12/20 Status: Ordered 19 ([place]) oral tablet, chewable 1 tablet, Chew, Daily, # 30 tablet, 11 Refills, Maintenance, 02/12/20 16:06:00 EST, [facility], 1 tablet Chew Daily, 164, cm, 02/12/20 15:34:00 EST, Height, 67, kg, 01/09/20 19:02:00 EDT, Dry Weight Start Date: 02/12/20 Status: Ordered Prometrium 200 mg oral capsule See Instructions, 1 capsule vaginally daily at night, # 30 capsule, 6 Refills, Maintenance, 02/12/20 16:06:00 EST, [facility], 164, cm, 02/12/20 15:34:00 EST, [...] (Confirmed) 1 Active Request for sterilization(Confirmed) Active 88600, tx'd here at [facility]. Social History Social History Type Response Smoking Status Never (less than 100 in lifetime) entered on: 11/15/19 Sex
--- OUTSIDE RECORDS SUMMARY | 2022-09-11 23:55 | XMS_ITS | Continuity of Care Document ---
Author Name Unknown Organization [facility] ter Address [address] [place] [address]- Care Team Providers Care Vp Compliance Name Role Phone Dalia CH, Katherine Dalton Primary Care Physician [phone] [place] [facility] [place] - 12/03/[address] [address]- [facility] Discharge Disposition: A-D/C Home Attending Physician: Radha Dejesus MD Admitting Physician: Radha Dejesus MD Referring Physician: Radha Dejesus MD Allergies, Adverse Reactions, Alerts No Known Medication Allergies Medications colchicine 0.6 mg oral tablet 0.6 mg, By Mouth, 2 times a day, # 60 tablet, Refills 2, Tot. Refills 2, Maintenance, 09/24/18 12:44:21 EDT, Route to Pharmacy Electronically, [id number], [facility] Start Date: 09/24/18 Status: Ordered Prena1 Chew 1.4 mg oral tablet, chewable 1 tablet, Chew, Daily, # 30 tablet, 11 Refills, Maintenance, 11/29/19 20:04:00 EDT, Chew Tablet, [facility], 1 tablet Chew Daily, 164, [...] tablet, 0 Refills, Maintenance, 11/15/19 11:42:00 EDT, [facility], 164, cm, 11/15/19 10:39:00 EDT, Height, 68.3, kg, 11/15/19 11:10:00 EDT, Dry Weight Start Date: 11/15/19 Status: Ordered Vitamin B6 25 mg oral tablet 1 tablet = 25 mg, By Mouth, 3 times a day, # 100 tablet, 0 Refills, Maintenance, 11/15/19 11:42:00 EDT, [facility], 164, cm, 11/15/19 10:39:00 EDT, Height, 68.3, kg, 11/15/19 11:10:00 EDT, Dry Weight Start Date: 11/15/19 Status: Ordered Problem List Condition Effective Dates Status Health Status Inform ant Bicornuate uterus(Confirmed) Active BMI 25.0, pre-(Confirmed) Active History of delivery x 2(Confirmed) Active Hx of Pericardial effusion, (Confirmed) 1 Active 309[address], tx'd here at [facility]. Vital Signs Most recent to oldest [Reference Range]: 1 Height 164 cm (12/03/19 9:46 PM) Weight 69.6 kg (12/03/19 9:36 PM) Oxygen Saturation [94-100 %] 100 % (12/03/19 9:46 PM) Pulse Rate [55-90 bpm] 63 bpm (12/03/19 9:46 PM) Blood Pressure [90-138/55-84 mm Hg] 112/ 60mm Hg (12/03/19 9:46 PM) Respiratory Rate [16-30 br/min] 20 br/mi n (12/03/19 9:46 PM) Temperature [96.8-100.4 DegF] 98.7 DegF (12/03/19 9:46 PM) Mode of Delivery (Oxygen) Room air (12/03/19 9:46 PM) Blood pressure sites Arm, right (12/03/19 9:46 PM) Temperature Route Oral (12/03/19 9:46 PM) Dry Weight 69.6 kg (12/03/19 9:36 PM) Weight Obtained Via Standing scale (12/03/19 9:36 PM) Social History Social History Type Response Smoking Status Never (less than 100 in lifetime) entered on: 11/15/19 Sex
--- OUTSIDE RECORDS SUMMARY | 2022-09-11 23:55 | XMS_ITS | Continuity of Care Document ---
Author Name Unknown Organization [facility] ter Address [address] [place] [address]- Care Team Providers Care Account General Manager Name Role Phone Dalia CH, Katherine Dalton Primary Care Physician [place] [facility] [place]s): 03/05/20 - 03/05/[address] [address] Discharge Disposition: A-D/C Home Attending Physician: Ant Yarbrough MD Admitting Physician: Ant Yarbrough MD Referring Physician: Ant Yarbrough MD Allergies, Adverse Reactions, Alerts No Known [...] tablet, 6 Refills, Maintenance, 02/12/20 16:06:00 EST, [facility], Partial fill upon patient... Start Date: 02/12/20 Status: Ordered Macrobid macrocrystals-monohydrate 100 mg oral capsule 1 capsule = 100 mg, By Mouth, 2 times a day, for 5 days, # 10 capsule, 0 Refills, Acute 03/10/20 21:42:00 EST, 03/05/20 21:42:00 EST, Capsule, [facility], Partial fill upon patient request if the prescription is for a schedule II o... Start Date: 03/05/20 Stop Date: 03/10/20 Status: Ordered 19 ([place]) oral tablet, chewable 1 tablet, Chew, Daily, # 30 tablet, 11 Refills, Maintenance, 02/12/20 16:06:00 EST, [facility], 1 tablet Chew Daily, 164, cm, 02/12/20 15:34:00 EST, Height, 67, kg, 01/09/20 19:02:00 EDT, Dry Weight Start Date: 02/12/20 Status: Ordered Prometrium 200 mg oral capsule See Instructions, 1 capsule vaginally daily at night, # 30 capsule, 6 Refills, Maintenance, 02/12/20 16:06:00 EST, [facility], 164, cm, 02/12/20 15:34:00 EST, [...] (Confirmed) 1 Active Request for sterilization(Confirmed) Active [address]98, tx'd here at [facility]. Vital Signs Most recent to oldest [Reference Range]: 1 Weight 66.7 kg (03/05/20 9:02 PM) Blood Pressure [90-138/55-84 mm Hg] 122/ 59mm Hg (03/05/20 7:30 PM) Respiratory Rate [16-30 br/min] 17 br/mi n (03/05/20 7:30 PM) Temperature [96.8-100.4 DegF] 98.4 DegF (03/05/20 7:30 PM) Blood pressure sites Arm, right (03/05/20 7:30 PM) Temperature Route Oral (03/05/20 7:30 PM) Dry Weight 66.7 kg (03/05/20 9:02 PM) Weight Obtained Via Standing scale (03/05/20 9:02 PM) Social History Social History Type Response Smoking Status Never (less than 100 in lifetime) entered on: 11/15/19 Sex
--- OUTSIDE RECORDS SUMMARY | 2022-09-11 23:55 | XMS_ITS | Continuity of Care Document ---
Author Name Unknown Organization [facility] Address [address] [place] [address]- Care Team Providers Care Radiologic Therapist Name Role Phone Katherine Gómez NP Primary Care Physician [phone] Encounter [facility] [place] Date(s): 10/31/19 - 11/30/19 [facility] and [address] [address]- [facility] Allergies, Adverse Reactions, Alerts No Known Medication Allergies Medications colchicine 0.6 mg oral tablet 0.6 mg, By Mouth, 2 times a day, # 60 tablet, Refills 2, Tot. Refills 2, Maintenance, 09/24/18 12:44:21 EDT, Route to Pharmacy Electronically, [id number], [facility] Start Date: 09/24/18 Status: Ordered Prena1 Chew 1.4 mg oral tablet, chewable 1 tablet, Chew, Daily, # 30 tablet, 11 Refills, Maintenance, 11/29/19 20:04:00 EDT, Chew Tablet, [facility], 1 tablet Chew Daily, 164, cm, 11/15/19 10:39:00 EDT, Height, 68.3, kg,11/15/19 11:10:00 EDT, Dry Weight Start Date: 11/29/19 Status: Ordered Tylenol Extra Strength 500 mg oral tablet 2 tablet = 1,000 mg, By Mouth, 3 times a day, PRN for pain, # 120 tablet, 0 Refills, Maintenance, 09/20/18 23:14:02 EDT, Tablet Start Date: 09/20/18 Status: Ordered Unisom 25 mg oral tablet 1 tablet = 25 mg, By Mouth, Daily at bedtime, # 30 tablet, 0 Refills, Maintenance, 11/15/19 11:42:00 EDT, [facility], 164, cm, 11/15/19 10:39:00 EDT, Height, 68.3, kg, 11/15/19 11:10:00 EDT, Dry Weight Start Date: 11/15/19 Status: Ordered Vitamin B6 25 mg oral tablet 1 tablet = 25 mg, By Mouth, 3 times a day, # 100 tablet, 0 Refills, Maintenance, 11/15/19 11:42:00 EDT, [facility], 164, cm, 11/15/19 10:39:00 EDT, Height, 68.3, kg, 11/15/19 11:10:00 EDT, Dry Weight Start Date: 11/15/19 Status: Ordered Problem List Condition Effective Dates Status Health Status Inform ant Bicornuate uterus(Confirmed) Active BMI 25.0, pre-(Confirmed) Active History of delivery x 2(Confirmed) Active Hx of Pericardial effusion, (Confirmed) 1 Active 95[address], tx'd here at [facility]. Social History Social History Type Response Smoking Status Never (less than 100 in lifetime) entered on: 11/15/19 Sex
--- OUTSIDE RECORDS SUMMARY | 2022-09-11 23:55 | XMS_ITS | Continuity of Care Document ---
Author Name Unknown Organization [facility] Montaguenela Saldaña [employer] Address [address] [place] [address], [address] [place] [address]- Care Team Providers Care Utility Locator Name Role Phone Dalia CO FOUNDER AND CHAIRMAN, Katherine Dalton Primary Care Physician [phone] [id number] Date(s): [facility]/20/20 - 06/19/20 [facility] [employer] [facility] [address] [facility], [address] [place] [address]- Attending Physician: Justine Downey MD Referring Physician: [...] tablet, 6 Refills, Maintenance, 02/12/20 16:06:00 EST, [facility], Partial fill upon patient... Start Date: 02/12/20 Status: Ordered 19 ([place]) oral tablet, chewable 1 tablet, Chew, Daily, # 30 tablet, 11 Refills, Maintenance, 02/12/20 16:06:00 EST, [facility], 1 tablet Chew Daily, 164, cm, 02/12/20 15:34:00 EST, Height, 67, kg, 01/09/20 19:02:00 EDT, Dry Weight Start Date: 02/12/20 Status: Ordered Prometrium 200 mg oral capsule See Instructions, 1 capsule vaginally daily at night, # 30 capsule, 6 Refills, Maintenance, 02/12/20 16:06:00 EST, [facility], 164, cm, 02/12/20 15:34:00 EST, [...] (Confirmed) 1 Active Request for sterilization(Confirmed) Active [address], tx'd here at [facility]. Social History Social History Type Response Smoking Status Never (less than 100 in lifetime) entered on: 11/15/19 Sex
--- OUTSIDE RECORDS SUMMARY | 2022-09-11 23:55 | XMS_ITS | Continuity of Care Document ---
Author Name Unknown [facility] [employer] Address [address] [place] [address], [address] [address]- Care Team Providers Care Pump Installation And Servicer Name Role Phone Dalia SPLIT LEATHER MOSSER, Katherine Dalton Primary Care Physician [phone] [place] [facility] [place] 03/06/20 - 04/05/20 [facility]veline [employer] [address] [facility], [address] [place], [place] [address] Allergies, Adverse Reactions, [...] tablet, 6 Refills, Maintenance, 02/12/20 16:06:00 EST, [facility], Partial fill upon patient... Start Date: 02/12/20 Status: Ordered 19 ([place]) oral tablet, chewable 1 tablet, Chew, Daily, # 30 tablet, 11 Refills, Maintenance, 02/12/20 16:06:00 EST, [facility], 1 tablet Chew Daily, 164, cm, 02/12/20 15:34:00 EST, Height, 67, kg, 01/09/20 19:02:00 EDT, Dry Weight Start Date: 02/12/20 Status: Ordered Prometrium 200 mg oral capsule See Instructions, 1 capsule vaginally daily at night, # 30 capsule, 6 Refills, Maintenance, 02/12/20 16:06:00 EST, [facility], 164, cm, 02/12/20 15:34:00 EST, [...] (Confirmed) 1 Active Request for sterilization(Confirmed) Active 980[address], tx'd here at [facility]. Social History Social History Type Response Smoking Status Never (less than 100 in lifetime) entered on: 11/15/19 Sex
--- OUTSIDE RECORDS SUMMARY | 2022-09-11 23:55 | XMS_ITS | Continuity of Care Document ---
Author Name Unknown Organization [facility] Shelburnnela Saldaña [employer] Address [address] [place] [address], [address] [place] [address]- Care Team Providers Care Help Desk Coordinator Name Role Phone Dalia PRODUCTION INTERNSHIP, Katherine Dalton Primary Care Physician [phone] [id number] Date(s): 01/12/20 - 05/11/20 [facility] [employer] [facility] [address] [facility], [address] [place], [place] [address] Attending Physician: Shlely Toney MD Referring Physician: Ysabel Fitzgerald DO [...] tablet, 6 Refills, Maintenance, 02/12/20 16:06:00 EST, [facility], Partial fill upon patient... Start Date: 02/12/20 Status: Ordered 19 ([place]) oral tablet, chewable 1 tablet, Chew, Daily, # 30 tablet, 11 Refills, Maintenance, 02/12/20 16:06:00 EST, [facility], 1 tablet Chew Daily, 164, cm, 02/12/20 15:34:00 EST, Height, 67, kg, 01/09/20 19:02:00 EDT, Dry Weight Start Date: 02/12/20 Status: Ordered Prometrium 200 mg oral capsule See Instructions, 1 capsule vaginally daily at night, # 30 capsule, 6 Refills, Maintenance, 02/12/20 16:06:00 EST, [facility], 164, cm, 02/12/20 15:34:00 EST, [...] (Confirmed) 1 Active Request for sterilization(Confirmed) Active 433[address], tx'd here at [facility]. Social History Social History Type Response Smoking Status Never (less than 100 in lifetime) entered on: 11/15/19 Sex
--- OUTSIDE RECORDS SUMMARY | 2022-09-11 23:55 | XMS_ITS | Continuity of Care Document ---
Author Name Unknown Organization [facility] Address [address] [place] [address]- Care Team Providers Care Basic Sciences Professor Name Role Phone Dalia CH, Katherine Dalton Primary Care Physician En[place] [facility] [place] Date(s): 11/30/19 - 01/27/20 [facility] [address] [place] [address] Attending Physician: Giulia Olmedo MD Admitting Physician: Giulia Olmedo MD Referring Physician: Shawanda Rivero CNM Allergies, Adverse Reactions, Alerts No Known Medication Allergies Immunizations Given and Recorded Vaccine Date Status Refusal Reason influenza virus vaccine, inactivated 01/09/20 Give n Medications 19 ([place]) oral tablet, chewable 1 tablet, Chew, Daily, # 30 tablet, 11 Refills, Maintenance, 01/10/20 13:50:00 EDT, [facility], 1 tablet Chew Daily, 164, cm, 01/09/20 19:02:00 EDT, Height, 67, kg, 01/09/20 19:02:00 EDT, Dry Weight Start Date: 01/10/20 Status: Ordered Prometrium 200 mg oral capsule See Instructions, 1 capsule vaginally daily at night, # 30 capsule, 6 Refills, Maintenance, 01/09/20 19:42:00 EDT, [facility], 164, cm, 01/09/20 19:02:00 EDT, Height, [...] (Confirmed) 1 Active Request for sterilization(Confirmed) Active [address], tx'd here at [facility]. Social History Social History Type Response Smoking Status Never (less than 100 in lifetime) entered on: 11/15/19 Sex
--- OUTSIDE RECORDS SUMMARY | 2022-09-11 23:55 | XMS_ITS | Continuity of Care Document ---
Author Name Unknown Organization [facility] Evelinenela Saldaña [employer] Address [address] [place] [address], [address] [place] [address]- Care Team Providers Care Endoscopy Rn Name Role Phone Dalia FLUOROSCOPE OPERATOR, Katherine Dalton Primary Care Physician [id number] Date(s): 03/19/20 - 07/17/20 [facility] [employer] [facility] [address] [facility], [address] [place], [place] [address] Attending Physician: Justine [...] tablet, 6 Refills, Maintenance, 02/12/20 16:06:00 EST, [facility], Partial fill upon patient... Start Date: 02/12/20 Status: Ordered 19 ([place]) oral tablet, chewable 1 tablet, Chew, Daily, # 30 tablet, 11 Refills, Maintenance, 02/12/20 16:06:00 EST, [facility], 1 tablet Chew Daily, 164, cm, 02/12/20 15:34:00 EST, Height, 67, kg, 01/09/20 19:02:00 EDT, Dry Weight Start Date: 02/12/20 Status: Ordered Prometrium 200 mg oral capsule See Instructions, 1 capsule vaginally daily at night, # 30 capsule, 6 Refills, Maintenance, 02/12/20 16:06:00 EST, [facility], 164, cm, 02/12/20 15:34:00 EST, [...] (Confirmed) 1 Active Request for sterilization(Confirmed) Active [address], tx'd here at [facility]. Social History Social History Type Response Smoking Status Never (less than 100 in lifetime) entered on: 11/15/19 Sex
--- OUTSIDE RECORDS SUMMARY | 2022-09-11 23:55 | XMS_ITS | Continuity of Care Document ---
Author Name Unknown Organization [facility] Homenela Saldaña [employer] Address [address] [place] [address], [address] [place] [address]- Care Team Providers Care Coating Line Worker Name Role Phone Dalia CH, Katherine Dalton Primary Care Physician [id number] Date(s): 04/02/20 - 07/31/20 [facility] [employer]velinenela [employer] [facility] [address] [facility], [address] [place] [address]- Attending Physician: Richard LIZARRAGA, Kelley Arias Referring Physician: Ysabel Fitzgerald DO Allergies, Adverse [...] tablet, 6 Refills, Maintenance, 02/12/20 16:06:00 EST, [facility], Partial fill upon patient... Start Date: 02/12/20 Status: Ordered 19 ([place]) oral tablet, chewable 1 tablet, Chew, Daily, # 30 tablet, 11 Refills, Maintenance, 02/12/20 16:06:00 EST, [facility], 1 tablet Chew Daily, 164, cm, 02/12/20 15:34:00 EST, Height, 67, kg, 01/09/20 19:02:00 EDT, Dry Weight Start Date: 02/12/20 Status: Ordered Prometrium 200 mg oral capsule See Instructions, 1 capsule vaginally daily at night, # 30 capsule, 6 Refills, Maintenance, 02/12/20 16:06:00 EST, [facility], 164, cm, 02/12/20 15:34:00 EST, [...] (Confirmed) 1 Active Request for sterilization(Confirmed) Active 592[address], tx'd here at [facility]. Social History Social History Type Response Smoking Status Never (less than 100 in lifetime) entered on: 11/15/19 Sex
--- OUTSIDE RECORDS SUMMARY | 2022-09-11 23:55 | XMS_ITS | Continuity of Care Document ---
Author Name Unknown Organization [facility] Evelinenela Saldaña [employer] Address [address] [place] [address], [address] [place] [address]- Care Team Providers Care Transformer Molder Name Role Phone Dalia YARDING SUPERVISOR, Katherine Dalton Primary Care Physician [id number] Date(s): 01/10/20 - 04/10/20 [facility] [employer] [facility] [address] [facility], [address] [place], [place] [address] Attending Physician: Ysabel Fitzgerald DO Allergies, Adverse [...] tablet, 6 Refills, Maintenance, 02/12/20 16:06:00 EST, [facility], Partial fill upon patient... Start Date: 02/12/20 Status: Ordered 19 ([place]) oral tablet, chewable 1 tablet, Chew, Daily, # 30 tablet, 11 Refills, Maintenance, 02/12/20 16:06:00 EST, [facility], 1 tablet Chew Daily, 164, cm, 02/12/20 15:34:00 EST, Height, 67, kg, 01/09/20 19:02:00 EDT, Dry Weight Start Date: 02/12/20 Status: Ordered Prometrium 200 mg oral capsule See Instructions, 1 capsule vaginally daily at night, # 30 capsule, 6 Refills, Maintenance, 02/12/20 16:06:00 EST, [facility], 164, cm, 02/12/20 15:34:00 EST, [...] (Confirmed) 1 Active Request for sterilization(Confirmed) Active [address], tx'd here at [facility]. Social History Social History Type Response Smoking Status Never (less than 100 in lifetime) entered on: 11/15/19 Sex
--- OUTSIDE RECORDS SUMMARY | 2022-09-11 23:55 | XMS_ITS | Continuity of Care Document ---
Author Name Unknown Organization [facility] Address [address] [place] [address]- Care Team Providers Care Residential Advisor Name Role Phone Dalia CH, Katherine Dalton Primary Care Physician [place] [facility] [place] - 01/27/20 [facility] [address] [place] [address] Attending Physician: Kari Waller Admitting Physician: Admtr, Ar8 Referring Physician: Admtr, Ar8 Allergies, Adverse Reactions, Alerts No Known Medication Allergies Immunizations Given and Recorded Vaccine Date Status Refusal Reason influenza virus vaccine, inactivated 01/09/20 Give n Medications 19 ([place]) oral tablet, chewable 1 tablet, Chew, Daily, # 30 tablet, 11 Refills, Maintenance, 01/10/20 13:50:00 EDT, [facility] 3, 1 tablet Chew Daily, 164, cm, 01/09/20 19:02:00 EDT, Height, 67, kg, 01/09/20 19:02:00 EDT, Dry Weight Start Date: 01/10/20 Status: Ordered Prometrium 200 mg oral capsule See Instructions, 1 capsule vaginally daily at night, # 30 capsule, 6 Refills, Maintenance, 01/09/20 19:42:00 EDT, [facility], 164, cm, 01/09/20 19:02:00 EDT, Height, [...] (Confirmed) 1 Active Request for sterilization(Confirmed) Active 815[address], tx'd here at [facility]. Social History Social History Type Response Smoking Status Never (less than 100 in lifetime) entered on: 11/15/19 Sex
--- OUTSIDE RECORDS SUMMARY | 2022-09-11 23:55 | XMS_ITS | Continuity of Care Document ---
Author Name Unknown Organization [facility] Evelinenela Saldaña [employer] Address [address] [place] [address], [address] [place] [address]- Care Team Providers Care Client Resolution Specialist Name Role Phone Dalia BUSINESS BANKING MANAGER, Katherine Dalton Primary Care Physician [phone] [id number] Date(s): 03/12/20 - 07/10/20 [facility] [employer] [facility] [address] [facility], [address] [place], [place] [address] Attending Physician: Justine Downey MD Referring Physician: [...] tablet, 6 Refills, Maintenance, 02/12/20 16:06:00 EST, [facility], Partial fill upon patient... Start Date: 02/12/20 Status: Ordered 19 ([place]) oral tablet, chewable 1 tablet, Chew, Daily, # 30 tablet, 11 Refills, Maintenance, 02/12/20 16:06:00 EST, [facility], 1 tablet Chew Daily, 164, cm, 02/12/20 15:34:00 EST, Height, 67, kg, 01/09/20 19:02:00 EDT, Dry Weight Start Date: 02/12/20 Status: Ordered Prometrium 200 mg oral capsule See Instructions, 1 capsule vaginally daily at night, # 30 capsule, 6 Refills, Maintenance, 02/12/20 16:06:00 EST, [facility], 164, cm, 02/12/20 15:34:00 EST, [...] (Confirmed) 1 Active Request for sterilization(Confirmed) Active 70225, tx'd here at [facility]. Social History Social History Type Response Smoking Status Never (less than 100 in lifetime) entered on: 11/15/19 Sex
--- OUTSIDE RECORDS SUMMARY | 2022-09-11 23:55 | XMS_ITS | Continuity of Care Document ---
Author Name Unknown Organization [facility] ter Address [address] [place] [id number]- Care Team Providers Care Pay Station Collector Name Role Phone Dalia PROGRAM ATTENDANT, Katherine Dalton Primary Care Physician [phone] Encounter [facility] [id number] Date(s): 07/31/22 - 07/31/[address] [address]- Encounter Diagnosis Pain, dental(Final) - 07/31/22 Discharge Disposition: A-D/C Home Attending Physician: Brody Clark MD Admitting Physician: Brody Clark MD Referring Physician: Not on Staff, Referring MD Allergies, Adverse Reactions, Alerts No Known Medication Allergies Immunizations Given and Recorded Vaccine Date Status Refusal Reason influenza virus vaccine, inactivated 01/09/20 Give n Medications Augmentin 875 mg-125 mg oral tablet 1 tablet, By Mouth, 2 times a day, for 5 days, # 10 tablet, 0 Refills, Acute 08/05/22 11:53:00 EDT,07/31/22 11:53:00 EDT, [facility]/pharmacy #[id number], Partial fill upon patient request if the prescription isfor a schedule II opioid drug. Start Date: 07/31/22 Stop Date: 08/05/22 Status: Ordered doxylamine 25 mg oral tablet 1 tablet = 25 mg, By Mouth, Daily, Take one tablet before bed. May take additional tablet in the morning if nausea still persistent, # 60 tablet, 6 Refills, Maintenance, 02/12/20 16:06:00 [facility], [facility], Partial fill upon patient... Start Date: 02/12/20 Status: Ordered naproxen 375 mg oral delayed release tablet 1 tablet = 375 mg, By Mouth, 2 times a day, # 60 tablet, 0 Refills, Acute 08/01/22 11:53:00 EDT, 07/31/22 11:53:00 EDT, EC Tablet, [facility]/pharmacy #[id number], Partial fill upon patient request if the prescription is for a schedule II opioid drug. Start Date: 07/31/22 Stop Date: 08/01/22 Status: Ordered oxyCODONE 5 mg oral tablet 5 mg, 1, tablet, By Mouth, Every 6 hours, PRN, # 7 tablet, Refills 0, Tot. Refills 0, Acute 08/01/22 11:53:00 EDT, as needed for pain, 07/31/22 11:53:00 EDT, Route to Pharmacy Electronically, [facility]/pharmacy #[id number], Partial fill upon patient request if th... Start Date: 07/31/22 Stop Date: 08/01/22 Status: Ordered 19 ([place]) oral tablet, chewable 1 tablet, Chew, Daily, # 30 tablet, 11 Refills, Maintenance, 02/12/20 16:06:00 EST, [facility], 1 tablet Chew Daily, 164, cm, 02/12/20 15:34:00 EST, Height, 67, kg, 01/09/20 19:02:00 EDT, Dry Weight Start Date: 02/12/20 Status: Ordered Prometrium 200 mg oral capsule See Instructions, 1 capsule vaginally daily at night, # 30 capsule, 6 Refills, Maintenance, 02/12/20 16:06:00 EST, [facility], 164, cm, 02/12/20 15:34:00 EST, Height, 67, kg, 01/09/20 19:02:00 EDT, Dry Weight Start Date: 02/12/20 Status: Ordered Tylenol Extra Strength 500 mg oral tablet 2 tablet = 1,000 mg, By Mouth, 3 times a day, PRN for pain, # 120 tablet, 0 Refills, Maintenance, 09/20/18 23:14:02 EDT, Tablet Start Date: 09/20/18 Status: Ordered Problem List Condition Confirmation Course Effective Dates Status H ealth Status Informant Bicornuate uterus Confirmed Active Family history of deafness Confirmed Active History of delivery x 2 Confirmed Active Low weight gain in Confirmed Active Hx of Pericardial effusion, 1 Confirmed Active Request for sterilization Confirmed Active [address]9866, tx'd here at [facility]. Vital Signs Most recent to oldest [Reference Range]: 1 2 Oxygen Saturation [94-100 %] 99 % (07/31/22 11:32 AM) 99 % (07/31/22 10:28 AM) Pulse Rate [55-90 bpm] 76 bpm (07/31/22 11:32 AM) 71 bpm (07/31/22 10:28 AM) Blood Pressure [90-138/55-84 mm Hg] 125/ 71mm Hg (07/31/22 11:32 AM) Respiratory Rate [16-30 br/min] 18 br/mi n (07/31/22 11:32 AM) Temperature [96.8-100.4 DegF] 98.7 DegF (07/31/22 11:32 AM) Mode of Delivery (Oxygen) Room air (07/31/22 11:32 AM) Room air (07/31/22 10:28 AM) Blood pressure sites Arm, right (07/31/22 11:32 AM) Temperature Route Oral (07/31/22 11:32 AM) Social History Social History Type Response Smoking Status Never (less than 100 in lifetime) entered on: 11/15/19 Sex Note * Brody Clark MD: PERFORM Event Display: Patient Education Leaflets Authored Date: [id number] [facility] - If You Need A Dentist ?? 33 If You Need a Dentist ?? For additional clinics and resources, see:? https://freeclinicdirectory.org ?? Additional information:? [facility]-Dentistry for ALL ?Mon-Fri 9:00-5:00? ext [phone] ? [address] Yasir Cabrera, ELSY? [address], [place]? [phone] [facility]? [address], [place]? [phone] [facility]? [address] [place]? [phone] [facility]? [address], [place]? [phone] [facility]? [address] [place]? [phone] [facility]? [address], [place]? [phone] [facility]? [address],[place]? [phone] [facility]? [address], [place]? [phone] [facility]? [address], [place]? [phone] ? [address]? [facility]? [address] [place], [place]?[phone] [facility]? [address] [place], [place]?[phone] ? * Brody Clark MD: PERFORM Event Display: Patient Education Leaflets Authored Date: [id number] Dental Pain ?? [id number] Dolor en los dientes Muchas cosas pueden causar dolor en los dientes. Por ejemplo, lilo grieta o lilo caries en un diente o lilo muela. [place] se debe a que la grieta o la caries curt expuesto el interior sensible del dienteo de la muela. Lilo infecci??n en la enc??a o en la ra??z del diente o de la muela tambi??n puede causar dolor e hinchaz??n. El dolor suele empeorar cuando catracho bebidas fr??as o calientes. Tambi??n puede empeorar si muerde alimentos duros. El dolor se puede propagar desde el diente o la muela hasta el o??do o la shu??bula de johanna mismo lado. Otras posibles causas del dolor de dientes son las siguientes: ??? Diente roto o fracturado ??? [place] da??ado ??? Movimientos repetidos yasmeen masticar, rechinar o apretar Cuidados en el hogar Siga estos consejos para cuidarse en staley casa: ??? Evite los alimentos y las bebidas calientes y fr??as. Los dientes y las muelas pueden ser sensibles a los cambios de temperatura. ??? Use pasta dental especial para dientes sensibles. Cep??llese con suavidad hacia arriba y hacia abajo en lugar de hacerlo para los costados. Cuando se cepilla hacia los costados, puede desgastar las superficies de las ra??kash si est??n expuestas. ??? Si el diente o la muela se newman roto o astillado, consulte con un dentista de inmediato. ??? Use compresas fr??as. Aplique lilo compresa fr??a sobre la shu??bula, encima de la matilda que le duele, para aliviar el dolor. ??? Consulte con staley proveedor de atenci??n m??dica sobre el uso de analg??sicos de venta velvet para calmar el dolor. Puede usarlos a menos que le hayan recetado otro medicamento. Si sufre de alguna enfermedad cr??jasmin del h??gado o de los ri??ones,hable con staley proveedor de atenci??n m??dica antes de rell paracetamol o ibuprofeno. Si alguna vez tuvo ??lceras estomacales o hemorragias gastrointestinales, tambi??n debe consultar con el proveedor. ??? Preste atenci??n a que no haya infecci??n. Si tiene signos de infecci??n, le elizabeth??n antibi??jony. T??melos seg??n le hayan indicado. ?? Atenci??n de seguimiento Programe lilo prisca de seguimiento con el dentista, o seg??n le hayan indicado. Es posible que el dolor desaparezca con el tratamiento que le hayan dado hoy. Oziel solo un dentista puede evaluar y tratar de forma adecuada la causa del dolor. [place] evitar?? que el dolor regrese. ?? Cu??ndo llamar al?? 911 Llame al?? 911 si ocurre algo de lo siguiente: ??? Somnolencia anormal o confusi??n ??? Dolor de cristo o rigidez en el chela ??? Debilidad o desmayos ??? Problemas para tragar o respirar ??? Problemas de la vista ?? Cu??ndo debe buscar atenci??n m??dica Llame al proveedor de atenci??n m??dica de inmediato ante cualquiera de las siguientes situaciones:??? La wade se le inflama o se enrojece ??? El dolor empeora o se propaga al chela ??? Tiene fiebre de 100.4?F (38.0?C) o superior, o seg??n le indique el proveedor ??? Le supura pus del diente o de la muela ?? Last Reviewed Date: 2021 ?? [id number] [employer]. Todos los derechos reservados. Esta informaci??n no pretende sustituir la atenci??n m??dica profesional. S??lo staley m??dico puede diagnosticar y tratar un problema de servando. ?? Patient Care team information Care Team Personnel Name: Dalia CH, Katherine Dalton Position: [facility] Outreach Member Role: PCP Address: Address: [address] [place] [id number]- Name: Brody Clark MD Position: [facility] ED Medicine MD Member Role: Admitting Physician Address: Address: [address] [place] [address]- Name: Meryl Nunez Position: [facility] ED TA [facility] Member Role: Patient Care Provider Name: Nallely RN, Ysabel Position: S ED RN W/OE and Tasks Member Role: Patient Care Provider Care Team Related Persons Name: MINO LENNON Address: home [address] [place] [address] Name: GUERITA STONE Address: home [address] [place] [address] Name: MICHELLE BAILEY Address: home [address] [place] [address] Name: TATIANNA OLIVO Address: home [address] [place] [address]
--- OUTSIDE RECORDS SUMMARY | 2022-09-11 23:55 | XMS_ITS | Continuity of Care Document ---
Author Name Unknown Organization [facility] Eveline arnett [facility] Address [address], [address] [place] [address]- Care Team Providers Care Clinical Dietitian Name Role Phone Dalia CH, Katherine Dalton Primary Care Physician Encounter [facility] Date(s): 11/15/19 - 11/22/19 [facility] [employer] [facility] [address] [place] [address]- [facility] Attending Physician: Kaitlin Vyas CNM Allergies, Adverse Reactions, Alerts No Known Medication Allergies Medications colchicine 0.6 mg oral tablet 0.6 mg, By Mouth, 2 times a day, # 60 tablet, Refills 2, Tot. Refills 2, Maintenance, 09/24/18 12:44:21 EDT, Route to Pharmacy Electronically, [id number], [facility] Start Date: 09/24/18 Status: Ordered ibuprofen 600 mg oral tablet See Instructions, 1 tablet By Mouth twice a day for 1 week, then 1 tablet once daily x 1 week, thenstop For acute pericarditis. Take with food or milk, # 21 tablet, Refills 0, Tot. Refills 0, Maintenance, 09/24/18 12:45:28 EDT, Instructions Replac... Start Date: 09/24/18 Status: Ordered Multivitamins with Folic Acid 1 mg oral tablet 1 tablet, By Mouth, Daily, # 30 tablet, 11 Refills, Maintenance, 11/15/19 11:42:00 EDT, [facility], 1 tablet By Mouth Daily, 164, cm, 11/15/19 10:39:00 EDT, Height, 68.3, kg, 11/15/19 11:10:00 EDT, Dry Weight Start Date: 11/15/19 Status: Ordered Tylenol Extra Strength 500 mg oral tablet 2 tablet = 1,000 mg, By Mouth, 3 times a day, PRN for pain, # 120 tablet, 0 Refills, Maintenance, 09/20/18 23:14:02 EDT, Tablet Start Date: 09/20/18 Status: Ordered Unisom 25 mg oral tablet 1 tablet = 25 mg, By Mouth, Daily at bedtime, # 30 tablet, 0 Refills, Maintenance, 11/15/19 11:42:00 EDT, [facility], 164, cm, 11/15/19 10:39:00 EDT, Height, 68.3, kg, 11/15/19 11:10:00 EDT, Dry Weight Start Date: 11/15/19 Status: Ordered Vitamin B6 25 mg oral tablet 1 tablet = 25 mg, By Mouth, 3 times a day, # 100 tablet, 0 Refills, Maintenance, 11/15/19 11:42:00 EDT, [facility], 164, cm, 11/15/19 10:39:00 EDT, Height, 68.3, kg, 11/15/19 11:10:00 EDT, Dry Weight Start Date: 11/15/19 Status: Ordered Problem List Condition Effective Dates Status Health Status Inform ant Bicornuate uterus(Confirmed) Active BMI 25.0, pre-(Confirmed) Active History of delivery(Confirmed) Active Hx of Pericardial effusion, (Confirmed) 1 Active [address], tx'd here at [facility]. Social History Social History Type Response Smoking Status Never (less than 100 in lifetime) entered on: 11/15/19 Sex
[2022-09-12] VITALS: BP 119/67; PULSE 80; RESP 16; TEMP 37.6; O2SAT 98
[2022-09-12 00:49] LABS: Influenza A PCR NEGATIVE (Negative); Influenza B PCR NEGATIVE (Negative); Resp Syncy Virus RNA Qual PCR NEGATIVE (Negative); SARS COV2 PCR INHOUSE NEGATIVE (Negative)
--- NOTE | 2022-09-12 01:27 | ED_ITS ---
HPI - URI/Sore Throat General Chief Complaint: Upper Respiratory Symptoms Stated Complaint: Fever/bodyaches Time Seen by Provider: 09/12/22 00:57 History of Present Illness HPI Narrative: Patient is a 27-year-old female presents today with having coughing congestion upper respiratory symptoms for 8 days. Positive generalized malaise. Patient does not have any exposure to the ordaz. No take bite noted. No pets psycho outside. Vaccinated for COVID. Positive generalized malaise he is. No significant past medical history. Positive subjective fever at home. No recent antibiotic Related Data Previous Rx's Medication Instructions Recorded acetaminophen 500 mg tablet 500 mg PO Q6H PRN fever or pain 04/15/22 (Tylenol Extra Strength) #14 tabs amoxicillin 875 mg-potassium 1 tab PO BID 7 days #14 tabs 04/15/22 clavulanate 125 mg tablet ciprofloxacin 0.3 %-dexamethasone 4 drp otic (ears) BID 7 days #7.5 04/15/22 0.1 % ear drops,suspension mL (Ciprodex) ibuprofen 800 mg tablet 800 mg PO Q8H PRN pain #14 tabs 04/15/22 ondansetron 4 mg disintegrating 4 mg PO Q8H PRN nausea and 04/16/22 tablet vomiting #10 tabs azithromycin 250 mg tablet See Rx Instructions PO .COMPLEX 09/12/22 upper resp infection #6 tabs dextromethorphan-guaifenesin 5 5 ml PO Q4-8H PRN cough #118 mL 09/12/22 mg-100 mg/5 mL oral liquid (Robitussin Cough-Chest Congestion DM) Allergies Allergy/AdvReac Type Severity Reaction Status Date / Time No Known Allergies Allergy Unknown UNKNOWN Verified 07/14/21 15:54 [NO KNOWN ALLERGIES] Review of Systems Review of Systems: Positive coughing congestion upper respiratory symptoms. Positive generalized malaise PMFSH Past Medical History Attestation statement: The following information was validated with the patient. Medical History Cardiac abnormality No pertinent past medical history Pericardial effusion Surgical History Hx of tonsillectomy Family History Family History Father No problems noted. Mother No problems noted. Social History Social History Patient Tobacco Use Status: Never used Tobacco Advance Directives: No Advance Directives Information Provided: No Physical Exam Vital Signs: Vital Signs: Last Vital Signs Temp 99.6 F 09/12/22 02:00 Pulse 68 09/12/22 02:00 Resp 18 09/12/22 02:00 BP 119/63 09/12/22 02:00 Pulse Ox 98 09/12/22 02:00 O2 Del Method Room Air 09/12/22 02:00 BMI result Body Mass Index 22.3 Appearance: Alert. Oriented X3. No acute distress. Eyes: Pupils equal, round and reactive to light. ENT: Pharynx normal. Neck: Normal inspection. Neck supple. No lymph nodes noted. No crepitus CVS: Normal heart rate and rhythm. Pulses normal. Normal S1 and S2 Respiratory: No respiratory distress. Breath sounds normal. No Wheezing. No rales Abdomen: Soft and nontender. No rigidity. No distention. good BS x4 Skin: Skin warm and dry. Normal skin color. Normal skin turgor. Extremities: No lower extremity edema. Neurovascular intact to all extremities. No Lacerations. No Rash Neuro: Oriented X 3. No motor deficit. No sensory deficit. Moving all extermities. No slurred speech Medical Decision Making Medical Decision Making [facility] Narrative: Patient positive coughing congestion upper respiratory symptoms. Generally well-appearing no distress. Chest x-ray showed no evidence of pneumonia no pneumothorax. No rib fracture. Will discharge patient home on a Z-Cuate. In stable condition. Differential Diagnosis Differential Diagnoses: The differential diagnosis associated with the presentation includes Bronchitis, COVID, flu, RSV Lab Data [facility] Lab Attestation statement: I reviewed the patient's lab results. Labs: Lab Results 09/12/22 Range/Units 00:07 Influenza Type A (PCR) NEGATIVE (Negative) Influenza Type B (PCR) NEGATIVE (Negative) RSV RNA Qual (PCR) NEGATIVE (Negative) SARS-CoV-2 RNA (RT-PCR) NEGATIVE (Negative) Independent Interpretation I performed an independent interpretation of an: Plain X-Ray Interpretation: Chest x-ray negative for pneumonia no pneumothorax Radiology Impression Discussion of test interpretation with radiology: I have reviewed the radiolo gist's reading. Discharge Plan Discharge Clinical Impression: Bronchitis Patient Disposition: Home, Self-Care Instructions: Acute Bronchitis (ED) Prescriptions: New azithromycin 250 mg tablet See Rx Instructions .ROUTE .COMPLEX Qty: 6 0RF Rx Instructions: take 500 mg today (day 1), then 250 mg for 4 days (days 2-5) Robitussin Cough-Chest Enmanuel DM 5-100 mg/5 mL liquid 5 ml PO Q4-8H PRN (Reason: cough) Qty: 118 0RF No Action ibuprofen 800 mg tablet 800 mg PO Q8H PRN (Reason: pain) Qty: 14 0RF acetaminophen [Tylenol Extra Strength] 500 mg tablet 500 mg PO Q6H PRN (Reason: fever or pain) Qty: 14 0RF amoxicillin-pot clavulanate 875-125 mg tablet 1 tab PO BID 7 Days Qty: 14 0RF ciprofloxacin-dexamethasone [Ciprodex] 0.3-0.1 % drops,suspension 4 drp otic (ears) BID 7 Days Qty: 7.5 0RF ondansetron 4 mg tablet,disintegrating 4 mg PO Q8H PRN (Reason: nausea and vomiting) Qty: 10 0RF Referrals: [facility] [Primary Care Provider] - 09/14/22
[2022-09-12 02:00] VITALS: BP 119/63; PULSE 68; RESP 18; TEMP 37.6; O2SAT 98
== END 2022-09-12 03:32 | disposition home or self-care (01) ==
PROVIDERS: Emergency Provider Emergency Medicine Emergency Medical Services
DX: J40 Bronchitis, not specified as acute or chronic (principal); R50.9 Fever, unspecified; M79.10 Myalgia, unspecified site; Z20.822 Contact with and (suspected) exposure to COVID-19; Z20.828 Contact with and (suspected) exposure to other viral communicable diseases
CPT/HCPCS: 0241U; 71045; 99283

== ENCOUNTER 2023-06-08 22:22 | Emergency (ER) | payer MEDICAID, SELFPAY ==
--- NOTE | ~2023-06-08 | US_ITS ---
EXAMINATION: US OBSTETRICAL ULTRASOUND CLINICAL INFORMATION: patient with abdominal pain. COMPARISON: None available. LMP: 05/10/2023. Gestational age by maternal dates is 4 weeks and 2 days. Estimated date of delivery by maternal dates is 02/14/2024. TECHNIQUE: Transabdominal and transvaginal obstetrical ultrasound performed. FINDINGS: The uterus is normal in appearance. There is an apparent intrauterine gestational sac with mean sac diameter of 0.31 cm suggesting a 4 week 5 day gestation. No yolk sac or pole currently identified. MATERNAL ADNEXA: The right maternal ovary measures 5.3 x 4 x 3.4 cm. There is a 4.2 x 3.4 x 3.4 cm anechoic structure associated with the right ovary with posterior acoustic enhancement. The left maternal ovary measures 3.1 x 2.0 x 1.6 cm. There is no significant maternal adnexal mass. There is a small amount of free fluid within the cul-de-sac. US/US OB pelvic and transvaginal IMPRESSION: Apparent intrauterine gestational sac with mean sac diameter suggesting a 4 week 5 day gestation. No yolk sac or pole identified. There is a likely 4.2 x 3.4 x 3.4 cm corpus luteal cyst on the right. Ectopic not entirely excluded and correlation quantitative beta-hCG and follow-up is needed.
[2023-06-08 22:25] VITALS: BP 124/71; PULSE 72; RESP 18; TEMP 36.2; O2SAT 100; BMI 23.2
[2023-06-08 22:45] LABS: MANUAL DIFF FLAG NO
[2023-06-08 22:52] LABS: Basophils Percent Auto 0.2 % (0-2); Eosinophils Percent Auto 0.4 % (0-4); Hematocrit 36.7 % (37.0-47.0); Hemoglobin 12.1 g/dl (12.0-16.0); Imm Gran Abs Auto 0.01 X10*3/uL (0.00-0.03); Imm Gran Pct Auto 0.1 % (0.0-0.4); Lymphocytes Absolute Auto 3.9 X10*3/uL (1.2-4.9); Lymphocytes Percent Auto 49.1 % (20-40); Mean Corpuscular Hemoglobin 29.8 pg (27.0-33.0); Mean Corpuscular Volume 90.4 fL (80.0-98.0); Mean Platelet Volume 10.3 fL (9.4-12.3); Monocytes Absolute Auto 0.6 X10*3/uL (0.1-1.2); Neutrophils Absolute Auto 3.5 x10*3/uL (2.0-8.3); Neutrophils Percent Auto 43.2 % (45-73); Platelet Count 252 X10*3/uL (160-400); Red Blood Count 4.06 X10*6/uL (4.20-5.50); Red Cell Distribution Width 12.7 % (11.0-16.0)
--- NOTE | 2023-06-08 23:02 | MHC.EDTECH ---
PATIENT URINE SAMPLE COLLECTED AND SENT TO LAB .
[2023-06-08 23:08] LABS: Alanine Aminotransferase 12 U/L (0-31); Alkaline Phosphatase 49 U/L (39-117); Anion Gap 10 (12-20); Aspartate Amino Transferase 12 U/L (5-31); Bilirubin Total 0.2 mg/dL (0.0-1.0); Blood Urea Nitrogen 14 mg/dL (9-16); Calcium 8.7 mg/dL (8.4-10.2); Carbon Dioxide 26 mmol/L (22-29); Chloride 107 mmol/L (96-108); Creatinine Clr Calc Pharmacy 88.7; Estimated Glomerular Filt Rate > 60; Glucose Random 90 mg/dL (60-115); Potassium 4.1 mmol/L (3.3-5.1); Sodium 139 mmol/L (135-145); Total Protein 7.1 g/dL (6.5-8.0)
[2023-06-08 23:09] LABS: HCG Quantitative 1507 mIU/mL
[2023-06-08 23:20] LABS: Appearance Urine Clear; Color Urine Yellow; Glucose Urine UA Negative (Negative); Leukocyte Esterase Urine Negative (Negative); Nitrite Urine Negative (Negative); Specific Gravity - Urine >= 1.030 (1.005-1.025); Urine Blood Negative (Negative); Urine Ketones Negative (Negative); Urine Protein Negative (Neg-Trace)
[2023-06-08 23:22] LABS: Bacteria Urine None Seen (None Seen); Hyaline Casts Urine 0-2 /LPF (0-2); WBC Urine 0-5 /HPF (0-5)
[2023-06-08 23:23] LABS: RBC Urine 0-2 /HPF (0-2)
--- NOTE | 2023-06-09 03:54 | ED.ABDPAIN ---
HPI - Abdominal Pain General Chief Complaint: Abdominal Pain Stated Complaint: preg w/alot of pain Time Seen by Provider: 06/09/23 03:34 History of Present Illness HPI narrative: Patient is a 27-year-old female presents today with having abdominal pain that has been ongoing for the last 3 days. Was seen yesterday at [facility] ER. Was told she was . Patient unsure about her last. But thinks it was the end of April. No fever no chills no vaginal discharge. Patient has 3 live births in the past. Two of them were premature. Patient has a history of preeclampsia. No bleeding. No discharge. Patient from home. No history of gonorrhea chlamydia. No history of ectopic in the past. Related Data Previous Rx's Medication Instructions Recorded acetaminophen 500 mg tablet 500 mg PO Q6H PRN fever or pain 04/15/22 (Tylenol Extra Strength) #14 tabs amoxicillin 875 mg-potassium 1 tab PO BID 7 days #14 tabs 04/15/22 clavulanate 125 mg tablet ciprofloxacin 0.3 %-dexamethasone 4 drp otic (ears) BID 7 days #7.5 04/15/22 0.1 % ear drops,suspension mL (Ciprodex) ibuprofen 800 mg tablet 800 mg PO Q8H PRN pain #14 tabs 04/15/22 ondansetron 4 mg disintegrating 4 mg PO Q8H PRN nausea and 04/16/22 tablet vomiting #10 tabs azithromycin 250 mg tablet See Rx Instructions PO .COMPLEX 09/12/22 upper resp infection #6 tabs dextromethorphan-guaifenesin 5 5 ml PO Q4-8H PRN cough #118 mL 09/12/22 mg-100 mg/5 mL oral liquid (Robitussin Cough-Chest Congestion DM) Allergies Allergy/AdvReac Type Severity Reaction Status Date / Time No Known Allergies Allergy Unknown UNKNOWN Verified 07/14/21 15:54 [NO KNOWN ALLERGIES] Review of Systems Review of Systems No fever no chills no chest pain positive lower abdominal pain Yes all other systems are reviewed and are negative [facility] Past Medical History Attestation statement: The following information was validated with the patient. Medical History Pericardial effusion Cardiac abnormality No pertinent past medical history Surgical History Hx of tonsillectomy Family History Family History Father No problems noted. Mother No problems noted. Social History Social History Patient Tobacco Use Status: Never used Tobacco Advance Directives: No Advance Directives Information Provided: No Physical Exam ED Vital Signs: Vital Signs - 24 hr 06/08/23 22:25 06/09/23 04:37 Temperature 97.1 F 98.3 F Pulse Rate 72 89 Respiratory Rate 18 16 Blood Pressure 124/71 123/67 Pulse Oximetry 100 98 Oxygen Delivery Method Room Air Room Air BMI result Body Mass Index 23.2 Appearance: Alert. Oriented X3. No acute distress. Eyes: Pupils equal, round and reactive to light. ENT: Pharynx normal. Neck: Normal inspection. Neck supple. No lymph nodes noted. No crepitus CVS: Normal heart rate and rhythm. Pulses normal. Normal S1 and S2 Respiratory: No respiratory distress. Breath sounds normal. No Wheezing. No rales Abdomen: Soft and nontender. No rigidity. No distention. good BS x4 Skin: Skin warm and dry. Normal skin color. Normal skin turgor. Extremities: No lower extremity edema. Neurovascular intact to all extremities. No Lacerations. No Rash Neuro: Oriented X 3. No motor deficit. No sensory deficit. Moving all extermities. No slurred speech Medical Decision Making Medical Decision Making MDM Narrative: Patient presents with having lower abdominal pain. Last menstrual period is about 4-1/2 weeks ago. Patient white count is normal. Electrolytes are normal. Quant HCG was 1500. Urine showed no signs of infection. Patient's blood type is AB-positive. No ABO incompatibility. No vaginal bleeding. An ultrasound was done. The ultrasound showed a gestational sac but no pole. Patient will need close follow-up on an outpatient basis will ask patient to get a repeat hCG to be drawn in 2 days. Close follow-up on an outpatient basis with OBGYN. She is currently in stable condition. Worsened pain to return. Explained to patient risk of ectopic still exists Differential Diagnosis Differential Diagnoses: The differential diagnosis associated with the presentation includes Early , ectopic, UTI Admission/Observation Consideration of admission/observation: Escalation of care including admission/observation considered Lab Data MDM Lab Attestation statement: I reviewed the patient's lab results. 06/08/23 22:41 06/08/23 22:41 Labs: Lab Results 06/08/23 06/08/23 Range/Units 22:41 23:01 WBC 8.0 (4.8-10.8) X10*3/uL RBC 4.06 L (4.20-5.50) X10*6/uL Hgb 12.1 (12.0-16.0) g/dl Hct 36.7 L (37.0-47.0) % MCV 90.4 (80.0-98.0) fL MCH 29.8 (27.0-33.0) pg MCHC 33.0 (31.0-35.0) g/dl RDW 12.7 (11.0-16.0) % Plt Count 252 (160-400) X10*3/uL MPV 10.3 (9.4-12.3) fL Immature Gran % (Auto) 0.1 (0.0-0.4) % Neut % (Auto) 43.2 L (45-73) % Lymph % (Auto) 49.1 H (20-40) % Spencer % (Auto) 7.0 (2-11) % Eos % (Auto) 0.4 (0-4) % Baso % (Auto) 0.2 (0-2) % Lymph # (Auto) 3.9 (1.2-4.9) X10*3/uL Spencer # (Auto) 0.6 (0.1-1.2) X10*3/uL Eos # (Auto) 0.0 (0.0-0.4) X10*3/uL Baso # (Auto) 0.0 (0.0-0.2) X10*3/uL Abs Immat Gran (auto) 0.01 (0.00-0.03) X10*3/uL Absolute Neuts (auto) 3.5 (2.0-8.3) x10*3/uL Absolute Nucleated RBC 0.000 (0.0-0.012) X10*3/uL Nucleated RBC % (auto) 0.0 (0.0-0.2) /100WBC Sodium 139 (135-145) mmol/L Potassium 4.1 (3.3-5.1) mmol/L Chloride 107 (96-108) mmol/L Carbon Dioxide 26 (22-29) mmol/L Anion Gap 10 L (12-20) BUN 14 (9-16) mg/dL Creatinine 0.83 (0.5-1.4) mg/dL Estim Creat Clear Calc 88.7 Estimated GFR > 60 Random Glucose 90 (60-115) mg/dL Calcium 8.7 D (8.4-10.2) mg/dL Total Bilirubin 0.2 (0.0-1.0) mg/dL AST 12 (5-31) U/L ALT 12 (0-31) U/L Alkaline Phosphatase 49 (39-117) U/L Total Protein 7.1 (6.5-8.0) g/dL Albumin 4.0 (3.5-5.0) g/dL Beta HCG, Quant 1507 mIU/mL Urine Color Yellow Urine Appearance Clear Urine pH 6.0 (5.0-9.0) Ur Specific Kouts >= 1.030 H (1.005-1.025) Urine Protein Negative (Neg-Trace) mg/dL Urine Glucose (UA) Negative (Negative) mg/dL Urine Ketones Negative (Negative) mg/dL Urine Blood Negative (Negative) Urine Nitrite Negative (Negative) Ur Leukocyte Esterase Negative (Negative) Urine RBC 0-2 (0-2) /HPF Urine WBC 0-5 (0-5) /HPF Ur Squamous Epith Cells 3-5 (0-2) /HPF Urine Bacteria None Seen (None Seen) Hyaline Casts 0-2 (0-2) /LPF Radiology Impression Discussion of test interpretation with radiology: I have reviewed the radiologist's reading. Independent Historian Clinical information obtained from an independent historian. History obtained from or confirmed by: Spouse External Record Review Previous labs including blood type reviewed Discharge Plan Discharge Clinical Impression: Patient Disposition: Home, Self-Care Instructions: (ED) Additional Instructions: Risk of in the wrong place or ectopic still exists. Please closely follow-up with OBGYN in 2 days. Please get a repeat blood work done in 2 days. Your hormone level is 1507 today. It should double in 2 days. Worsened pain returned. Small risk of ectopic still exists Prescriptions: No Action ibuprofen 800 mg tablet 800 mg PO Q8H PRN (Reason: pain) Qty: 14 0RF acetaminophen [Tylenol Extra Strength] 500 mg tablet 500 mg PO Q6H PRN (Reason: fever or pain) Qty: 14 0RF amoxicillin-pot clavulanate 875-125 mg tablet 1 tab PO BID 7 Days Qty: 14 0RF ciprofloxacin-dexamethasone [Ciprodex] 0.3-0.1 % drops,suspension 4 drp otic (ears) BID 7 Days Qty: 7.5 0RF ondansetron 4 mg tablet,disintegrating 4 mg PO Q8H PRN (Reason: nausea and vomiting) Qty: 10 0RF azithromycin 250 mg tablet See Rx Instructions .ROUTE .COMPLEX Qty: 6 0RF Rx Instructions: take 500 mg today (day 1), then 250 mg for 4 days (days 2-5) Robitussin Cough-Chest Enmanuel DM 5-100 mg/5 mL liquid 5 ml PO Q4-8H PRN (Reason: cough) Qty: 118 0RF Referrals: Bao Hollis MD [Physician] - 06/11/23
[2023-06-09 04:37] VITALS: BP 123/67; PULSE 89; RESP 16; TEMP 36.8; O2SAT 98
[2023-06-09 07:02] VITALS: BP 113/61; PULSE 68; RESP 16; TEMP 36.7; O2SAT 99
[2023-06-09 07:10] VITALS: BP 113/61; PULSE 68; RESP 18; TEMP 36.7; O2SAT 99
== END 2023-06-09 07:15 | disposition home or self-care (01) ==
PROVIDERS: Emergency Provider Emergency Medicine Emergency Medical Services
DX: O26.91 Pregnancy related conditions, unspecified, first trimester (principal); R10.2 Pelvic and perineal pain; Z3A.01 Less than 8 weeks gestation of pregnancy; Z79.899 Other long term (current) drug therapy
CPT/HCPCS: 36415; 76801; 76817; 80053; 81001; 84702; 85025; 99284

== ENCOUNTER 2023-11-23 13:08 | Outpatient (AMB) | payer MEDICAID, SELFPAY ==
--- NOTE | 2023-11-23 13:07 | A.OFFVIS_ITS ---
Vital Signs 3 11/23/23 13:17 Height 5 ft 4 in Weight 140 lb BMI 24.0 BP 124/57 L Blood Pressure Location Lt brachial Position Sitting Pulse 77 Intake Visit Reasons: lump in axilla Intake Note: Patient is seen in office for evaluation of a lump of the left axilla. Pt c/o: onset one year, has increase in size, purple color, denies redness, discharge, or signs of infections, no prior lumps Hot Shot Required: No Accompanied by: Family/Other Allergies No Known Allergies [NO KNOWN ALLERGIES] Allergy (Unknown, Verified 11/23/23 13:14) UNKNOWN Medication List - Last Reconciled 11/23/23 by Gerard Díaz MD No Known Home Meds HPI Comments Details: 28-year-old female patient presenting for evaluation of a right axillary mass. The mass initially began as a small lump which she thought might be a skin cyst but has gradually increased in size. She denies any pain, redness or discharge at this site. She denies any previous history of breast problems or breast surgery. Her family history is negative for breast cancer. Previous evaluation with an ultrasound performed at an outside institution revealed an ill-defined mass with internal vascularity thought to possibly be a hemangioma measuring 2.7 x 0.9 x 2.3 cm. The patient is currently with an EDC in January 2024. [facility] Medical History Pericardial effusion Cardiac abnormality No pertinent past medical history Surgical History Hx of tonsillectomy Family History Father No problems noted. Mother No problems noted. Social History Patient Tobacco Use Status: Never used Tobacco Review of Systems Const All systems reviewed & are unremarkable except as noted in HPI and below Denies chills, Denies fever(s), Denies headache(s), Denies poor appetite and Denies weakness ENT Denies headache(s) Card Denies chest pain, Denies irregular heart rhythm, Denies palpitations and Denies dyspnea Resp Denies cough, Denies excessive phlegm production and Denies dyspnea GI Denies abdominal pain, Denies bloating, Denies change in bowel habits, Denies constipation, Denies heartburn, Denies diarrhea, Denies nausea and Denies vomiting Denies urinary frequency Musc Denies back pain, Denies muscle weakness and Denies numbness Skin/Breast Denies changing lesions and Denies unusual bruising Neuro Denies headache(s), Denies numbness, Denies paresthesias and Denies weakness Psych Denies anxiety and Denies depression Endo Denies palpitations Kirby/Lymph Denies lymphadenopathy Physical Exam Vital Signs: Last Vital Signs Pulse 77 11/23/23 13:17 BP 124/57 L 11/23/23 13:17 BMI result Body Mass Index 24.0 Const General: cooperative and no acute distress Nutritional Appearance: well nourished Orientation/consciousness: patient oriented x3 Limitations: no limitations HEENT Head: Yes normocephalic and Yes atraumatic Ears: hearing grossly normal bilaterally Chest Other: Examination of the right axilla reveals a soft tissue mass in the mid axilla which appears mobile without fixation to the skin or underlying musculature. Site is nontender to palpation and no overlying skin changes are appreciated. Chest/axillae images: 2 1. Site of palpable abnormality. Resp Effort & Inspection: normal respiratory effort, no audible wheezes, no cough and no respiratory distress Cardio Jugular venous distension: no JVD GI Other: Gravid uterus Inspection: Yes normal to inspection Skin Other: Warm, dry, no rash Neuro General: patient oriented x3 Extrem General: Yes no clubbing, cyanosis or edema Assessment & Plan Assessment & Plan (1) Hemangioma: Code(s): D18.00 - Hemangioma unspecified site Category: Medical Qualifiers: Hemangioma site: subcutaneous tissue Qualified Code(s): D18.01 - Hemangioma of skin and subcutaneous tissue (2) Mass of right axilla: Code(s): R22.31 - Localized swelling, mass and lump, right upper limb Category: Medical Plan 28-year-old female patient presenting with a soft tissue mass of the right axilla which has gradually increased in size and thought to be possibly a hemangioma by ultrasound. On examination there is a superficial soft tissue mass in the left axilla which has a soft texture is mobile within the subcutaneous tissue. Findings are suggestive of a small hemangioma. I recommended observation at this time and have suggested repeating the ultrasound after several months and returning for follow-up examination. She is welcome to return sooner for any new changes. She expressed understanding and agrees with the plan. Orders: Orders 2 US breast RT limited 03/27/24 D18.00 - Hemangioma unspecified site, R22.31 - Localized swelling, mass and lump, right upper limb Coding Level of Care Code New Pt Level 4 (29715) Diagnoses Hemangioma of subcutaneous tissue D18.01 Hemangioma site: subcutaneous tissue Mass of right axilla R22.31
--- OUTSIDE RECORDS SUMMARY | 2023-11-23 13:09 | XMS_ITS | Continuity of Care Document ---
Author Organization [facility] Address [address] [place] [address]- Care Team Providers Care Needle Leader Name Role Phone Dalia VAULT TELLER, Katherine Dalton Primary Care Physician Encounter [facility] [place] Date(s): 08/27/23 - 09/26/23 [facility] and [address] [address]- Allergies, Adverse Reactions, Alerts No Known Medication Allergies Immunizations Given and Recorded Vaccine Date Status Refusal Reason influenza virus vaccine, inactivated 01/09/20 Give n Medications 19 ([place]) oral tablet, chewable 1 tablet, Chew, Daily, # 30 tablet, 11 Refills, Maintenance, 02/12/20 16:06:00 EST, [facility], 1 tablet Chew Daily, 164, cm, 02/12/20 15:34:00 EST, Height, 67, kg, 01/09/20 19:02:00 EDT, Dry Weight Start Date: 02/12/20 Status: Ordered progesterone 100 mg vaginal insert 1 tablet, Vaginally, Daily at bedtime, # 90 tablet, 3 Refills, Maintenance, 07/29/23 10:42:00 EDT, Tablet, [facility], Partial fill upon patient request if the prescription is for a schedule II opioid drug., 163, cm, 07/29/23 10:03:00 ED... Start Date: 07/29/23 Status: Ordered Tylenol Extra Strength 500 mg oral tablet 2 tablet = 1,000 mg, By Mouth, 3 times a day, PRN for pain, # 120 tablet, 0 Refills, Maintenance, 09/20/18 23:14:02 EDT, Tablet Start Date: 09/20/18 Status: Ordered Problem List Condition Confirmation Course Effective Dates Status H ealth Status Informant Bicornuate uterus Confirmed Active BMI 22.7, pre- - normal Confirmed Active Family history of deafness Confirmed Active History of delivery x 2 Confirmed Active Hx of Low weight gain in Confirmed Active Hx of Pericardial effusion, 1 Confirmed Active Request for sterilization Confirmed Active 56764, tx'd here at [facility]. Social History Social History Type Response Smoking Status Never (less than 100 in lifetime) entered on: 11/15/19 Sex Patient Care team information Care Team Personnel Name: Dalia CH, Katherine Dalton Position: [facility] Outreach Member Role: PCP Address: Address: [address] [place] [address]- Care Team Related Persons Name: BILL BELTRÁN Address: home [address] [place] [address] Name: MINO LENNON Address: home [address] [place] [address] Name: GUERITA STONE Address: home [address] [place] [address] Name: MICHELLE BAILEY Address: home [address] [place] [address] Name: TATIANNA OLIVO Address: home [address] [place] [address]
--- OUTSIDE RECORDS SUMMARY | 2023-11-23 13:09 | XMS_ITS | Continuity of Care Document ---
Author Organization [facility] Address [address] [place] [address], [address] [place] [address]- Care Team Providers Care Optometric Aide Name Role Phone Dalia CH, Katherine Dalton Primary Care Physician [phone] Encounter [facility] [place] Date(s): 07/29/23 - 08/05/23 [facility] [address] [facility], [address] [place], [place] [address] Attending Physician: Tiana LIZARRAGA, Melisa Referring Physician: Katherine Gómez NP Allergies, Adverse Reactions, Alerts No Known Medication Allergies Immunizations Given and Recorded Vaccine Date Status Refusal Reason influenza virus vaccine, inactivated 01/09/20 Give n Medications 19 ([place]) oral tablet, chewable 1 tablet, Chew, Daily, # 30 tablet, 11 Refills, Maintenance, 02/12/20 16:06:00 EST, [facility], 1 tablet Chew Daily, 164, cm, 02/12/20 15:34:00 EST, Height, 67, kg, 01/09/20 19:02:00 EDT, Dry Weight Start Date: 02/12/20 Status: Ordered progesterone 100 mg vaginal insert 1 tablet, Vaginally, Daily at bedtime, # 90 tablet, 3 Refills, Maintenance, 07/29/23 10:42:00 EDT, Tablet, [facility], Partial fill upon patient request [...] Confirmed Active Request for sterilization Confirmed Active 40624, tx'd here at [facility]. Vital Signs Most recent to oldest [Reference Range]: 1 Height 163 cm (07/29/23 10:03 AM) Weight 63.36 kg (07/29/23 10:03 AM) Body Mass Index [18.5-24.99 kg/m2] 23.85 kg/m2 (07/29/23 10:03 AM) Blood Pressure [90-138/55-84 mm Hg] 118/ 62mm Hg (07/29/23 10:03 AM) Blood pressure sites Arm, right (07/29/23 10:03 AM) Weight Obtained Via Standing scale (07/29/23 10:03 AM) Social History Social History Type Response Smoking Status Never (less than 100 in lifetime) entered on: 11/15/19 Sex Patient Care team information Care Team Personnel Name: Katherine Gómez NP Position: [facility] Outreach Member Role: PCP Address: Address: [address] [place] [address]- Care Team Related Persons Name: BILL BELTRÁN Address: home [address] [place] [address] Name: MINO LENNON Address: home [address] [place] [address] Name: GUERITA STONE Address: home [address] [place] [address] Name: MICHELLE BAILEY Address: [address] [place] [address] Name: TATIANNA OLIVO Address: home [address] [place] [address]
--- OUTSIDE RECORDS SUMMARY | 2023-11-23 13:09 | XMS_ITS | Continuity of Care Document ---
Author Organization [facility] Address [address] [place] [address], [address] [place] [address]- Care Team Providers Care Auto Detailer Name Role Phone Dalia CH, Katherine Dalton Primary Care Physician [place] [facility] [place] Date(s): 07/21/23 - 07/28/23 [facility] [address] [facility], 4th [place] [address]- Attending Physician: Kelley Ramos MD Referring Physician: Not on Staff, Referring MD Allergies, Adverse Reactions, Alerts No Known Medication Allergies Immunizations Given and Recorded Vaccine Date Status Refusal Reason influenza virus vaccine, inactivated 01/09/20 Give n Medications 19 ([place]) oral tablet, chewable 1 tablet, Chew, Daily, # 30 tablet, 11 Refills, Maintenance, 02/12/20 16:06:00 EST, [facility], 1 tablet Chew Daily, 164, [...] Confirmed Active Request for sterilization Confirmed Active 60656, tx'd here at [facility]. Vital Signs Most recent to oldest [Reference Range]: 1 Height 163 cm (07/21/23 9:09 AM) Dry Weight 60.34 kg (07/21/23 9:09 AM) Social History Social History Type Response Smoking Status Never (less than 100 in lifetime) entered on: 11/15/19 Sex Patient Care team information Care Team Personnel Name: Katherine Gómez NP Position: S Outreach Member Role: PCP Address: Address: [address] [place] [address]- Care Team Related Persons Name: BILL BELTRÁN Address: home [address] [place] [address] Name: MINO LENNON Address: home [address] [place] [address] Name: GUERITA STONE Address: home [address] [place] [address] Name: MICHELLE BAILEY Address: home [address] [place] [address] Name: TATIANNA OLIVO Address: home [address] [place] [address]
--- OUTSIDE RECORDS SUMMARY | 2023-11-23 13:09 | XMS_ITS | Continuity of Care Document ---
Author Organization [facility] Address [address] [place] [address]- Care Team Providers Care Bar Tacker Name Role Phone Dalia NIBBLER OPERATOR, Katherine Dalton Primary Care Physician Encounter [facility] Date(s): 10/19/23 - 11/18/23 [facility] and [address] [address]- Allergies, Adverse Reactions, Alerts No Known Medication Allergies Immunizations Given and Recorded Vaccine Date Status Refusal Reason influenza virus vaccine, inactivated 01/09/20 Give n Medications 19 ([place]) oral tablet, chewable 1 tablet, Chew, Daily, # 30 tablet, 11 Refills, Maintenance, 09/27/23 10:49:00 EDT, [id number], 1 tablet Chew Daily, 163, cm, 09/27/23 10:02:00 EDT, Height, 61.24, kg, 09/27/23 10:02:00 EDT, Dry Weight Start Date: 09/27/23 Status: Ordered progesterone 100 mg vaginal insert 1 tablet, Vaginally, Daily at bedtime, # 90 tablet, 3 Refills, Maintenance, 09/27/23 10:49:00 EDT, Tablet, [id number], Partial fill upon patient request if the prescription is for a schedule II opioid drug., 163, cm, 09/27/23 10:02:00 EDT, Hei... Start Date: 09/27/23 Status: Ordered Tylenol Extra Strength 500 mg [...] delivery x 2 Confirmed Active Hx of Pericardial effusion, 1 Confirmed Active Vaginal itching Confirmed Active Request for sterilization Confirmed Active 33653, tx'd here at [facility]. Social History Social History Type Response Smoking Status Never (less than 100 in lifetime) entered on: 11/15/19 Sex Patient Care team information Care Team Personnel Name: Katherine Gómez NP Position: [facility] Outreach Member Role: PCP Address: Address: [address] [place] [address]- [place] Care Team Related Persons Name: BILL BELTRÁN Address: home [address] [place] [address] Name: MINO LENNON Address: home [address] [place] [address] Name: GUERITA STONE Address: [address] [place] [address] Name: MICHELLE BAILEY Address: [address] [place] [address] Name: TATIANNA OLIVO Address: home [address] [place] [address]
--- OUTSIDE RECORDS SUMMARY | 2023-11-23 13:10 | XMS_ITS | Continuity of Care Document ---
Author Organization [facility] Address [address] [facility], [address] [place] [address]- Care Team Providers Care Magazine Filler Name Role Phone Dalia ENDOCRINOLOGY NURSE, Katherine Dalton Primary Care Physician [phone] [id number] - 09/01/23 [facility] [address] [facility], [address]th [place] [address]- Attending Physician: Kari Waller Admitting Physician: Kari Waller Referring Physician: AdmtrKari Allergies, Adverse Reactions, Alerts No Known Medication Allergies Immunizations Given and Recorded Vaccine Date Status Refusal Reason influenza virus vaccine, inactivated 01/09/20 Give n Medications 19 ([place]) oral tablet, chewable 1 tablet, Chew, Daily, [...] 3 Refills, Maintenance, 07/29/23 10:42:00 EDT, Tablet, [facility], Partial fill upon patient [...] Confirmed Active Request for sterilization Confirmed Active 64116, tx'd here at [facility]. Social History Social History Type Response Smoking Status Never (less than 100 in lifetime) entered on: 11/15/19 Sex Patient Care team information Care Team Personnel Name: Katherine Gómez NP Position: [facility] Outreach Member Role: PCP Address: Address: [address] [place] [address]- Care Team Related Persons Name: BILL BELTRÁN Address: [address] [place] [address] Name: MINO LENNON Address: [address] [place] [address] Name: GUERITA STONE Address: [address] [place] [address] Name: MICHELLE BAILEY Address: [address] [place] [address] Name: TATIANNA OLIVO Address: [address] [place] [address]
--- OUTSIDE RECORDS SUMMARY | 2023-11-23 13:10 | XMS_ITS | Continuity of Care Document ---
Author Organization [facility] Address [address] [place] [address], [address] [place] [address]- Care Team Providers Care Asset Liability Analyst Name Role Phone Dalia MAPPING ENGINEER, Katherine Dalton [id number] Date[facility]s): [facility]27[facility]23 - 10/04/23 [facility] Olanela Ayala's [facility] [address] [facility], [address] [place] [address]- Attending Physician: Susan Rico MD Referring Physician: Kimber Reynolds CNM Allergies, Adverse Reactions, Alerts No Known Medication Allergies Immunizations Given and Recorded Vaccine Date Status Refusal Reason influenza virus vaccine, inactivated 01/09/20 Give n Medications 19 ([place]) oral tablet, chewable 1 tablet, Chew, Daily, [...] Confirmed Active Request for sterilization Confirmed Active 72212, tx'd here at [facility]. Social History Social History Type Response Smoking Status Never (less than 100 in lifetime) entered on: 11/15/19 Sex Radiology * Event Display: PDC Detailed Anatomy Survey, Lvl 2 * Event Display: PDC Detailed Anatomy Survey, Lvl 2 Authored Date: [id number] Obstetrics Report Signed Final 09/27/2023 10:40 AM Patient Info ID: [id number] : 1995 (28 y)(F) Name: BEN BAILEY Date: 09/27/2023 10:23 AM Performed By Attending: Justine Augustine MD Referred By: Rosina Hilton NP Performed By: Maryann Taylor RDMS Ref Address: [facility] Exam Location:[address] Service(s) Provided Code Level 1, >14weeks [address] [place] [address] P Indications Code Anatomical Survey Level 1 Z36.3 Gestational Age LMP: 20w 2d Date: 05/08/23 SUSHILA: 02/12/24 U/S Today: 20w 2d SUSHILA: 02/12/24 Best: 20w 2d Det. By: LMP (05/08/23) SUSHILA: 02/12/24 Evaluation Number Of Fetuses: 1 Heart Rate(bpm): 150 Cardiac Activity: Present Presentation: Cephalic Placenta Location: Anterior Cord Insertion: No anomalies seen Amniotic Fluid CHERIE FV: Within normal limits Biometry -------- BPD: 49.3 mm G.Age: 20w 6d 75 % CI: 76.26 % 70 - 86 FL/HC: 18.1 % 16.8 - 19.8 HC: 178.9 mm G. Age: 20w 2d 44 % HC/AC: 1.21 1.09 - 1.39 AC: 147.7 mm G. Age: 20w 0d 36 % FL/BPD: 65.5 % FL: 32.3 mm G. Age: 20w 0d 34 % FL/AC: 21.9 % 20 - 24 HUM: 30.6 mm G. Age: 20w 1d CER: 22 mm G. Age: 21w 0d Est. FW: 333 gm 0lb 12oz 36 % Biometry - Extended NFT: 4.0 mm LV: 5.2 mm CM: 5.9 mm Standard Anatomy Cranium: No anomalies seen RVOT: No anomalies seen Cavum Septi Pellu.: No anomalies seen LVOT: No anomalies seen Cerebral Ventricles: No anomalies seen Aortic Arch: No anomalies seen Choroid Plexus: No anomalies seen Ductal Arch: No anomalies seen Cerebellum: No anomalies seen Stomach: No anomalies seen Posterior Fossa: No anomalies seen Abdomen: No anomalies seen Nuchal Fold: No anomalies seen Abdominal Wall: No anomalies seen Nasal Bone: Present Cord Vessels: 3-vessel cord Face: Profile appears normal Kidneys: No anomalies seen Lips: Upper lip appears normal Bladder: No anomalies seen Palate: No anomalies seen Spine: No anomalies seen Diaphragm: No anomalies seen Upper Extremities: Arms appear normal Heart: 4-chamber appeared normal Lower Extremities: Legs appear normal Cervix Uterus Adnexa Cervix: Length: 4.3 cm Appears closed Comment Vaginal scanning was done. Comments -------- The standard anatomy survey is unremarkable. Justine Augustine MD Electronically Signed Final Report 09/27/2023 10:40 AM * Event Display: PDC Detailed Anatomy Survey, Lvl 2 Authored Date: Please click on pdf link to open report Patient Care team information Care Team Personnel Name: Katherine Gómez NP Position: S Outreach Member Role: PCP Address: Address: [address] [place] [address]- [place] Care Team Related Persons Name: BILL BELTRÁN Address: home [address] [place] [address] Name: MINO LENNON Address: home [address] [place] [address] Name: GUERITA STONE Address: [address] [place] [address] Name: MICHELLE BAILEY Address: [address] [place] [address] Name: TATIANNA OLIVO Address: home [address] [place] [address]
--- OUTSIDE RECORDS SUMMARY | 2023-11-23 13:10 | XMS_ITS | Continuity of Care Document ---
Author Organization [facility] Address [address] [place] [address], [place] [address]- Care Team Providers Care Car Inspection And Repair Manager Name Role Phone Dalia ROAD PRODUCTION GENERAL MANAGER, Katherine Dalton Primary Care Physician Encounter [facility] Date(s): 06/14/23 - 07/14/23 [facility] [address] [facility], [address] [place] [address]- Allergies, Adverse Reactions, Alerts No Known Medication Allergies Immunizations Given and Recorded Vaccine Date Status Refusal Reason influenza virus vaccine, inactivated 01/09/20 Give n Medications 19 ([place]) oral tablet, chewable 1 tablet, Chew, Daily, # 30 tablet, 11 Refills, Maintenance, 02/12/20 16:06:00 EST, [facility], 1 tablet Chew Daily, 164, [...] Confirmed Active Request for sterilization Confirmed Active 00792, tx'd here at [facility]. Social History Social History Type Response Smoking Status Never (less than 100 in lifetime) entered on: 8/26/20 Sex Patient Care team information Care Team Personnel Name: Katherine Gómez NP Position: [facility] Outreach Member Role: PCP Address: Address: [address] [place] [address]- Care Team Related Persons Name: BILL BELTRÁN Address: home [address] [place] [address] Name: MINO LENNON Address: home [address] [place] [address] Name: GUERITA STONE Address: [address] [place] [address] Name: MICHELLE BAILEY Address: [address] [place] [address] Name: TATIANNA OLIVO Address: home [address] [place] [address]
--- OUTSIDE RECORDS SUMMARY | 2023-11-23 13:10 | XMS_ITS | Continuity of Care Document ---
Author Organization [facility] ter Address [address] [place] [address]- Care Team Providers Care Mining Engineering Technologist Name Role Phone Dalia CH, Katherine Dalton Primary Care Physician Encounter [facility] Date(s): 07/22/23 - 07/22/[address] [address] Discharge Disposition: A-D/C Home Attending Physician: Melisa Montiel MD Admitting Physician: Melisa Montiel MD Referring Physician: Melisa Montiel MD Allergies, Adverse Reactions, Alerts No Known Medication Allergies Immunizations Given and Recorded Vaccine Date Status Refusal Reason influenza virus vaccine, inactivated 01/09/20 Give n Medications metroNIDAZOLE 500 mg oral tablet 1 tablet = 500 mg, By Mouth, Every 12 hours, # 14 tablet, 0 Refills, Maintenance, 07/22/23 15:09:00EDT, Tablet, [facility]/pharmacy #[id number], Partial fill upon patient request if the prescription is for a schedule II opioid drug., 163, cm, 07/22/23 13:40:00 ED... Start Date: 07/22/23 Stop Date: 07/29/23 Status: Ordered 19 (Salol) oral tablet, chewable 1 tablet, Chew, Daily, # 30 tablet, 11 Refills, Maintenance, 02/12/20 16:06:00 EST, [facility], 1 tablet Chew Daily, 164, [...] Confirmed Active Request for sterilization Confirmed Active 92824, tx'd here at [facility]. Vital Signs Most recent to oldest [Reference Range]: 1 2 Height 163 cm (07/22/23 1:40 PM) 163 cm (07/22/23 1:32 PM) Weight 63.2 kg (07/22/23 1:40 PM) Oxygen Saturation [94-100 %] 100 % (07/22/23 1:40 PM) Pulse Rate [55-90 bpm] 84 bpm (07/22/23 1:40 PM) Body Mass Index [18.5-24.99 kg/m2] 23.79 kg/m2 (07/22/23 1:40 PM) Blood Pressure [90-138/55-84 mm Hg] 113/ 56mm Hg (07/22/23 1:40 PM) Respiratory Rate [16-30 br/min] 18 br/mi n (07/22/23 1:40 PM) Temperature [96.8-100.4 DegF] 97.8 DegF (07/22/23 1:40 PM) Mode of Delivery (Oxygen) Room air (07/22/23 1:40 PM) Blood pressure sites Arm, right 1 (07/22/23 1:40 PM) Temperature Route Oral (07/22/23 1:40 PM) Dry Weight 63.2 kg (07/22/23 1:40 PM) Weight Obtained Via Standing scale (07/22/23 1:40 PM) Dry Weight Obtained Via Standing scale (07/22/23 1:40 PM) 1Result Comment: 28cm Social History Social History Type Response Smoking Status Never (less than 100 in lifetime) entered on: 11/15/19 Sex Note * Vijaya Cohen RN: PERFORM Event Display: Discharge/Transfer Note Hospital Authored Date: [id number] Nursing Discharge Note Entered On: 07/22/2023 15:13 EDT Performed On: 07/22/2023 15:12 EDT by Vijaya Cohen RN Nursing Discharge Note 2 Discharge Time : 07/22/2023 15:15 EDT Discharge Level of Care at Discharge : Home/Fdc/Foster Care Patient Left Unit Via : Ambulatory Patient Accompanied Off Unit with : Other: self DC Instructions Provided & Signed by Pt : Yes Patient Understands D/C Instructions : Yes Patient Instructions Discharge Signed : Yes Did Pt have Specialty Bed or Wound Vac : No Vijaya Cohen RN - 07/22/2023 15:12 EDT * Vijaya Cohen RN: PERFORM Event Display: Patient Education/Instruction Authored Date: [id number] Inpatient Adult Discharge Instructions. [address] [address] Name: BEN BAILEY : 1995?? Visit: 07/22/2023 13:08?? Current Date: 07/22/2023 15:14 ?? Account: [id number]?? Inpatient Adult Discharge Instructions We would like to thank you for allowing us to assist you with your healthcare needs. The following includes patient education materials and information regarding your injury/illness. Our entire staffstrives to provide an excellent experience for our patients and their families. PLEASE ENSURE YOU FOLLOW-UP PER THE INSTRUCTIONS BELOW! ?? YOUR OPINION IS IMPORTANT TO US! Please complete the survey you may receive by mail or email. Your feedback will be used to make improvements to the healthcare experiences of our patients and their families. Surveys are administered by [employer] ?? If further treatment with your primary care physician or another doctor is recommended, it is important for you to keep the appointment. Call your primary care physician or return to the Emergency Department immediately if your condition worsens, fails to improve, or new symptoms develop. If you need to find a doctor, you can call [facility] [employer] for a referral at [phone] or toll free at [phone] or log in to [email or web address].. ?? [facility], in keeping with [facility] guidance, no longer requires face masks for staff, patientsor visitors in most situations. Similiar to time spent indoors at other locations, there is the chance that you were exposed to repiratory viruses during your time with us (such as flu or COVID-19). If you develop symptoms concerning for a viral respiratory infection, please seek testing (and treatment if indicated) from your medical provider or home test kit. ?? You can view and manage your care through the patient portal or by using a health care leila of your choosing. [employer] is a website that allows you to securely view your medical information including your hospital discharge summary, office visit summaries, medications and follow-up visits. You can also request appointments, renew medications, and request access to your medical information using a health care leila of your choosing, or just ask a question. You can enroll at [email or web address] or register during your next office visit. You have been discharged from [facility], Patient Care Unit: [id number]??. If you have any questions regarding these instructions, including results of studies pending, afteryou leave, please call us and we will be happy to assist you 12/10. [facility] Your Care Team Attending Physician Melisa Montiel MD?? Consulting Providers Melisa Montiel MD?? Tests Performed Below is a partial list of the tests performed during your hospitalization. You may have had other tests and procedures not included in this list. Please discuss all test results with your provider. No tests performed during this visit.?? Primary Care Provider Katherine Gómez NP? Advance Directive Health Care Proxy on File No Discharge Vitals Temperature: 97.8 DegF Height: 163 cm Pulse Rate: 84 bpm Weight: 63.2 kg Respiratory Rate: 18 br/min Body Mass Index: 23.79 kg/m2 Systolic Blood Pressure: 113 mm Hg Body surface area: 1.69 Diastolic Blood Pressure: 56 mm Hg ?? Oxygen Saturation: 100 % ?? Studies Pending All studies ordered during this hospital stay have been completed unless listed below. Please discuss all pending results with your provider listed above in these instructions. ?? No incomplete studies found?? What to do next Instructions From Your Doctor ?? Orders?? Scheduled Follow-Up Appointments 2023 10:00 AM EDT ?? With: Lida CH, Rosina Kwon Where: [facility] [employer]EC[employer] [address] [place] [address]- Status: Pending Wednesday. 2023 11:30 AM EDT ?? Where: [facility] [employer] [address] [place] [address]- Status: Pending You Need to Schedule the Following Appointments Follow Up with??Lida CH, Rosina Kwon When:??In 1 week 07/29/2023 EDT Where: [address] [facility] [place] [address]- Discharge Medications BEN MCCONNELL :1995 Visit Date:07/22/2023 Medications: Please continue your medications until treatment is completed or stopped by your provider. Medications not listed below should be discontinued. Discuss any questions related to medications with your provider. What How Much When Instructions Next Dose New Metronidazole (metroNIDAZOLE 500 mg oral tablet) 1 tab(s) Oral Every 12 hours Duration: 7 Days Pickup at [facility]/pharmacy #[id number] Unchanged Acetaminophen (Tylenol Extra Strength 500 mg oral tablet) 2 tab(s) Oral 3 times a day as needed for for pain Unchanged Multivitamin, ( 19 (Salol) oral tablet, chewable) 1 tab(s) Chew Daily Pharmacy Information [facility]/pharmacy #[id number]: [address] [place], [place] [id number] [phone] Prescription Given During Visit Metronidazole (metroNIDAZOLE 500 mg oral tablet) - 1 tablet = 500 mg, By Mouth, Every 12 hours, # 14 tablet, 0 Refills, [facility]/pharmacy #[id number], [address] [place] [phone]?? Laboratory Results Below is a partial list of the most recent Laboratory test results done prior to this discharge. You may have had other tests and procedures not included in this list. Please discuss all test resultswith your provider. Allergies (NKA means No Known Allergies) No Known Medication Allergies Problems Active Problems??(8) Bicornuate uterus?? BMI 22.7, pre- - normal?? Family history of deafness?? History of delivery x 2?? Hx of Low weight gain in ?? Hx of Pericardial effusion, ? Request for sterilization?? Education Materials Below is the list of Educational Leaflet Providered with your Discharge Instructions. [employer] Patient Education - Bacterial Vaginosis?? Valuables and Belongings I fully understand and agree that [facility] accepts no responsibility for all my personal property including clothing, toilet articles, radios, jewelry, dentures, hearing aids, rings, money, or any other property that is in my possession or is brought to me after admission. I understand certain valuables may be placed in a hospital safe for a short period of time. I understand that the hospital is not liable for loss or damage due to accident, fire, or other natural occurrence while said property is in the safe. I accept full responsibility for any personal property that I keep with me, and will not hold the hospital responsible in case of loss or disappearance. I acknowledge that i have been encouraged to send valuables and belongings home. ? Other Discharge Information ? Case Management Discharge Plan?? Discharge Plan?? Discharge Level of Care at Discharge: Home/Fdc/Foster Care ?? Pulmonary Rehab Status?? Pulmonary Rehab Discharge Status?? Respiratory Rate: 18 br/min ? Common Emergency Awareness Tips IS IT A STROKE? Act FAST and Check for these signs: FACE Does the face look uneven? ARM Does one arm drift down? SPEECH Does their speech sound strange? TIME Call at any sign of stroke ?? Heart Attack Signs Chest discomfort: Most heart attacks involve discomfort in the center of the chest and lasts more than a few minutes, or goes away and comes back. It can feel like uncomfortable pressure, squeezing, fullness or pain. Discomfort in upper body: Symptoms can include pain or discomfort in one or both arms, back, neck, jaw or stomach. Shortness of breath: With or without discomfort. Other signs: Breaking out in a cold sweat, nausea, or lightheaded. Remember, MINUTES DO MATTER. If you experience any of these heart attack warning signs, call to get immediate medical attention! ?? Smoking can increase your chances of developing chronic health problems and can cause harmful effects to other family members in your house. If you smoke, you are strongly encouraged to quit. Please call [facility] [employer] Link at [phone] or [phone] ([phone]) or log in to [email or web address] for referrals to smoking cessation programs. ?? 988 Suicide & Crisis Lifeline is available 12/10 if you or someone you know needs to find a reason to keep living. By calling 988 you'll be connected to a skilled, trained counselor at a crisis center in your area. INPATIENT DISCHARGE INSTRUCTIONS SIGNATURE PAGE BEN MCCONNELL Location:[facility] Registration Date and Time:07/22/2023 13:08 EDT Primary Care Physician: Katherine Gómez NP, Attending Physician: Melisa Montiel MD, I BEN MCCONNELL, have received the above patient education materials/instructions and have verbalized understanding. If ambulance or transport services are being used I further acknowledge being given a choice of service. ?? If you need to contact me, please call me at this number: . Patient/Web Content & Social Media Manager Name: Patient/Web Content & Social Media Manager Signature: Relationship to Patient: Witness Name/Signature: Date: * Cohen RN, Vijaya: PERFORM Event Display: Patient Education Leaflets Authored Date: [id number] Bacterial Vaginosis ?? [id number] Bacterial Vaginosis You have a vaginal infection called bacterial vaginosis (BV). Both good and bad bacteria are present in a healthy vagina. BV occurs when these bacteria get out of balance. The number of bad bacteria increase. And the number of good bacteria decrease. BV is linked with sexual activity, but it's not a sexually transmitted infection (STI). BV may or may not cause symptoms. If symptoms do occur, they can include: ??? Thin, ardon, milky-white, or sometimes green discharge ??? Unpleasant odor or ???fishy?? smell ??? Itching, burning, or pain in or around the vagina It's not known what causes BV, but certain factors can make the problem more likely. These can include: ??? Douching ??? Spermicides ??? Use of antibiotics ??? Change in hormone levels with , , or menopause ??? Having sex with a new partner ??? Having sex with more than one partner BV will sometimes go away on its own. But treatment is often advised. This is because untreated BV can raise the risk of more serious health problems, such as: ??? Pelvic inflammatory disease (PID) ??? delivery (giving to a baby early if you???re ) ??? HIV and some other sexually transmitted infections (STIs) ??? Infection after surgery on the reproductive organs Home care General care ??? BV is most often treated with medicines called antibiotics. These may be given as pills or as avaginal cream.??If antibiotics are prescribed, be sure to use them exactly as directed. And complete all of the medicine, even if your symptoms go away. ??? Don't douche or have sex during treatment.??? If you have sex with a female partner, ask your healthcare provider if she should also be treated. Prevention ??? Don't douche. ??? Don't have sex. If you do have sex, take steps to lower your risk:o Use condoms when having sex. o Limit the number of sex partners you have. ?? Follow-up care Follow up with your healthcare provider, or as advised. ?? When to get medical advice Call your healthcare provider right away if any of the following occur: ??? You have a fever of??100.4??F (38??C)??or higher, or as directed by your healthcare provider. ??? Your symptoms get worse, or they don???t go away within a few days of starting treatment. ??? You have new pain in the lower belly??or pelvic region. ??? You have side effects that bother you or a reaction to the pills or cream you???re prescribed. ??? You or any of your sex partners have new symptoms, such as a rash, jointpain, or sores. ?? Last Reviewed Date: 2021 ?? 2146-1806 [employer]. All rights reserved. This information is not intended as a substitute for professional medical care. Always follow your healthcare professional's instructions. ?? Patient Care team information Care Team Personnel Name: Katherine Gómez NP Position: [facility] Outreach Member Role: PCP Address: Address: [address] [place] [address]- Care Team Related Persons Name: BILL BELTRÁN Address: home [address] [place] [address] Name: MINO LENNON Address: [address] [place] [address] Name: GUERITA STONE Address: home [address] [place] [address] Name: MICHELLE BAILEY Address: [address] [place] [address] Name: TATIANNA OLIVO Address: home [address] [place] [address]
--- OUTSIDE RECORDS SUMMARY | 2023-11-23 13:10 | XMS_ITS | Continuity of Care Document ---
Author Organization [facility] Piotr [facility]Returns [facility] Address [address] [place] [address], [address] [place] [address]- Care Team Providers Care Disc Pad Grinder Name Role Phone Dalia CH, Katherine Dalton [id number]s): [facility] - 08/09/23 [facility] [address] [facility] [address], 4th Floor [place], [place] [address] Attending Physician: Susan Rico MD Referring Physician: Lida CH, Rosina Kwon Allergies, Adverse Reactions, Alerts No Known Medication Allergies Immunizations Given and Recorded Vaccine Date Status Refusal Reason influenza virus vaccine, inactivated 01/09/20 Give n Medications 19 ([place]) oral tablet, chewable 1 tablet, Chew, Daily, # 30 tablet, 11 Refills, Maintenance, 02/12/20 16:06:00 EST, [facility], 1 tablet Chew Daily, 164, cm, 02/12/20 15:34:00 EST, Height, 67, kg, 01/09/20 19:02:00 EDT, Dry Weight Start Date: 02/12/20 Status: Ordered progesterone 100 mg vaginal insert 1 tablet, Vaginally, Daily at bedtime, # 90 tablet, 3 Refills, Maintenance, 07/29/23 10:42:00 EDT, Tablet, [facility], Partial fill upon [...] Confirmed Active Request for sterilization Confirmed Active 52302, tx'd here at [facility]. Social History Social History Type Response Smoking Status Never (less than 100 in lifetime) entered on: 11/15/19 Sex Radiology * Event Display: [facility] First Trimester Obstetrical U/S * Event Display: [facility] First Trimester Obstetrical U/S Authored Date: [id number] OBSTETRICS REPORT PATIENT INFO: CMRN: [id number] BMRN: [id number] : [birth year] (27 yrs)(F) Name: BEN BOB Visit Date: 08/02/2023 11:43 am LEO PERFORMED BY: Performed By: Domonique Phillips RDMS Attending: Roberto Carlos Montoya MD Referred By: Rosina Hilton NP Location: [address] INDICATIONS: First Trimester Screening Z36.82 Other and unspecified ovarian cysts N83.2 EVALUATION: Num Of Fetuses: 1 Gest. Sac: Seen in the intrauterine cavity Yolk Sac: Not visualized Pole: Visualized Heart Rate(bpm): 152 Cardiac Activity: Present Presentation: Variable Placenta: Anterior Amniotic Fluid CHERIE FV: Within normal limits BIOMETRY: CRL: 61.2 mm G.Age: 12w 4d SUSHILA: 02/10/24 GESTATIONAL AGE: LMP: 12w 2d Date: 05/08/23 SUSHILA: 02/12/24 Best: 12w 2d Det. By: LMP (05/08/23) SUSHILA: 02/12/24 ANATOMY: Cranium: 1st trimester anatomy normal Choroid Plexus: 1st trimester anatomy normal Heart: SEEN Stomach: 1st trimester anatomy normal Abdominal Wall: 1st trimester anatomy normal Bladder: 1st trimester anatomy normal Upper Extremities: 1st trimester anatomy normal Lower Extremities: 1st trimester anatomy normal CERVIX UTERUS ADNEXA: Cervix Appears closed Left Ovary Not visualized Right Ovary Simple cyst=3.6 x 4.7 x 3.3 cm COMMENTS: The exam was limited due to position. There is a live first trimester intrauterine gestation measuring appropriate for gestational age. Limited first trimester anatomy appears normal. The NT was not seen due to position. Structures not seen on this exam are due to gestational age and position limitations. All structures not seen today will be evaluated at the anatomic survey. Aneuploidy screening deferred to the patient's primary obstetric provider. A maternal right ovarian simple cyst is seen with measurments listed above. Roberto Carlos Montoya MD Electronically Signed Final Report 08/02/2023 12:03 pm * Event Display: [facility] First Trimester Obstetrical U/S Authored Date: [id number] Please click on pdf link to open report Patient Care team information Care Team Personnel Name: Dalia CH, Katherine Dalton Position: S Outreach Member Role: PCP Address: Address: [address] [facility] [facility], [place] [address]- [place] Care Team Related Persons Name: BILL BELTRÁN Address: home [address] [place] [address] Name: MINO LENNON Address: home [address] [place] [address] Name: GUERITA STONE Address: home [address] [place] [address] Name: MICHELLE BAILEY Address: home [address] [place] [address] Name: TATIANNA OLIVO Address: home [address] [place] [address]
--- OUTSIDE RECORDS SUMMARY | 2023-11-23 13:10 | XMS_ITS | Continuity of Care Document ---
Author Organization [facility] Address [address] [place] [address], [address] [address]- Care Team Providers Care Plaster Mechanic Name Role Phone Dalia SHEET METAL PATTERN CUTTER, Katherine Dalton Primary Care Physician [place] [facility] [place]s): 07/08/23 - 08/07/23 [facility] [address] [facility] [place], [place] [address] Allergies, Adverse Reactions, Alerts No Known Medication Allergies Immunizations Given and Recorded Vaccine Date Status Refusal Reason influenza virus vaccine, inactivated 01/09/20 Give n Medications 19 ([place]) oral tablet, chewable 1 tablet, Chew, Daily, # 30 tablet, 11 Refills, Maintenance, 02/12/20 16:06:00 EST, [facility], 1 tablet Chew Daily, 164, cm, 02/12/20 15:34:00 EST, Height, 67, kg, 01/09/20 19:02:00 EDT, Dry Weight Start Date: 02/12/20 Status: Ordered progesterone 100 mg vaginal insert 1 tablet, Vaginally, Daily at bedtime, # 90 tablet, 3 Refills, Maintenance, 07/29/23 10:42:00 EDT, Tablet, [facility], Partial fill upon [...] Confirmed Active Request for sterilization Confirmed Active [id number], tx'd here at [facility]. Social History Social History Type Response Smoking Status Never (less than 100 in lifetime) entered on: 11/15/19 Sex Patient Care team information Care Team Personnel Name: Dalia CH, Katherine Dalton Position: [facility] Outreach Member Role: PCP Address: Address: [address] [place] [address]- Care Team Related Persons Name: BILL BELTRÁN Address: home [address] [place] [address] Name: MINO LENNON Address: home [address] [place] [address] Name: GUERITA STONE Address: home [address] [place] [address] Name: MICHELLE BAILEY Address: home [address] [place] [address] Name: TATIANNA OLIVO Address: home [address] [place] [address]
--- OUTSIDE RECORDS SUMMARY | 2023-11-23 13:10 | XMS_ITS | Continuity of Care Document ---
Author Organization [facility] Address [address] [place] [address], [address] [address]- Care Team Providers Care Boat Person Name Role Phone Dalia CH, Katherine Dalton Primary [facility] Phys[id number] Date(s[facility] 06/18/23 - 07/18/23 [facility] [address] [facility], 4th [address] [place], [place] [address] Allergies, Adverse Reactions, Alerts No Known Medication Allergies Immunizations Given and Recorded Vaccine Date Status Refusal Reason influenza virus vaccine, inactivated 01/09/20 Give n Medications 19 ([place]) oral tablet, chewable 1 tablet, Chew, Daily, # 30 tablet, 11 Refills, Maintenance, 02/12/20 16:06:00 EST, [facility], 1 tablet Chew Daily, 164, [...] Confirmed Active Request for sterilization Confirmed Active [id number], tx'd here at [facility]. Social History Social History Type Response Smoking Status Never (less than 100 in lifetime) entered on: 11/15/19 Sex Patient Care team information Care Team Personnel Name: Katherine Gómez NP Position: [facility] Outreach Member Role: PCP Address: Address: [address] [place] [address]- Care Team Related Persons Name: BILL BELTRÁN Address: home [address] [place] [address] Name: MINO LENNON Address: [address] [place] [address] Name: GUERITA STONE Address: [address] [place] [address] Name: MICHELLE BAILEY Address: [address] [place] [address] Name: TATIANNA OLIVO Address: [address] [place] [address]
--- OUTSIDE RECORDS SUMMARY | 2023-11-23 13:10 | XMS_ITS | Continuity of Care Document ---
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 Name Role Phone Dalia BIZTALK CONSULTANT, Katherine Dalton Primary Care Physician [id number] Date(s[facility] 10/22/23 - 11/21/23 [facility] [address] [facility] 4th [address] [place], [place] [address] Attending Physician: Kari Waller Admitting Physician: Kari Waller Referring Physician: AdmtrKari Allergies, Adverse Reactions, Alerts No Known Medication Allergies Immunizations Given and Recorded Vaccine Date Status Refusal Reason influenza virus vaccine, inactivated 01/09/20 Give n Medications 19 ([place]) oral tablet, chewable 1 tablet, Chew, Daily, [...] Effective Dates Status H ealth Status Informant Ovarian cyst in Confirmed Active Bicornuate uterus Confirmed Active BMI 22.7, pre- - normal Confirmed Active Family history of deafness Confirmed Active History of delivery x 2 Confirmed Active Confirmed Active Hx of Pericardial effusion, 1 Confirmed Active Pericardial effusion Confirmed Active Request for sterilization Confirmed Active [id number], tx'd here at [facility]. Social History Social History Type Response Smoking Status Never (less than 100 in lifetime) entered on: 11/15/19 Sex Patient Care team information Care Team Personnel Name: Katherine Gómez NP Position: [facility] Outreach Member Role: PCP Address: Address: [address] [place] [address]- [place] Care Team Related Persons Name: BILL BELTRÁN Address: [address] [place] [address] Name: MINO LENNON Address: [address] [place] [address] Name: GUERITA STONE Address: [address] [place] [address] Name: MICHELLE BAILEY Address: [address] [place] [address] Name: TATIANNA OLIVO Address: [address] [place] [address]
--- OUTSIDE RECORDS SUMMARY | 2023-11-23 13:10 | XMS_ITS | Continuity of Care Document ---
Author Organization [facility] ter Address [address] [place] [address]- Care Team Providers Care Brick Catcher Name Role Phone Dalia CH, Katherine Dalton Primary Care Physician [phone] Encounter [facility] Date(s): 06/17/23 - 06/17/[address] [address] Discharge Disposition: A-D/C Home Attending Physician: Kenneth Meza MD Admitting Physician: Kenneth Meza MD Referring Physician: Kenneth Meza MD Allergies, Adverse Reactions, Alerts No Known [...] patient... Start Date: 02/12/20 Status: Ordered 19 ([place]) oral tablet, chewable 1 tablet, Chew, Daily, [...] Confirmed Active Request for sterilization Confirmed Active 76328, tx'd here at [facility]. Vital Signs Most recent to oldest [Reference Range]: 1 Oxygen Saturation [94-100 %] 100 % (06/17/23 3:06 AM) Pulse Rate [55-90 bpm] 79 bpm (06/17/23 3:06 AM) Blood Pressure [90-138/55-84 mm Hg] 129/ 66mm Hg (06/17/23 3:06 AM) Respiratory Rate [16-30 br/min] 18 br/mi n (06/17/23 3:06 AM) Temperature [96.8-100.4 DegF] 98.5 DegF (06/17/23 3:06 AM) Mode of Delivery (Oxygen) Room air (06/17/23 3:06 AM) Blood pressure sites Arm, right (06/17/23 3:06 AM) Temperature Route Oral (06/17/23 3:06 AM) Social History Social History Type Response Smoking Status Never (less than 100 in lifetime) entered on: 11/15/19 Sex History and physical note * Tyrone Decker DO: PERFORM Event Display: History and Physical Hospital Authored Date: [id number] Patient: ??LISBETH BEN BAILEY ? Age:??27 Years?Sex:??Female?:??1995?? LMP/EGA/SUSHILA Gestational Age (EGA) and SUSHILA? * Note: EGA calculated as of 06/17/2023 ?? SUSHILA:??02/15/2024?EGA*:??5 weeks 2 days ? History?(1,2,0,3)?Method:??Last Menstrual Period??(05/11/2023) History of Present Illness Patient is a 27-year-old -2-0-3 at 5 weeks and 2 days by LMP that presents to [facility] for complaints of spotting.?Patient states that??approximately 1 hour prior to arriving to [facility] she got up to void and noticed??a small amount of blood in the bowl and on the paper following wiping. ??She denies any heavy vaginal bleeding or continued vaginal bleeding. ??Additionally she does note some mildlower abdominal pain.?She states that this is a desired .?She does report??having intercourse with her partner??within the last 24 hours.?she denies any??vaginal discharge, vaginal leaking Review of Systems Constitutional, Eye, Skin, Head/Neck, ENMT, Respiratory, Cardio, Gastrointestinal, Breast, Gynecologic, Genitourinary, Endocrine, Musculoskeletal, Immunologic, Hematologic, Lymphatic, Neurologic, Psych reviewed and negative except as noted in HPI. Physical Exam Vitals & Measurements T:??98.5?F?? HR:??79??(Peripheral)?? RR:??18?? BP:??129/66?? SpO2:??100%?? General: pleasant, alert, cooperative, NAD HEENT: Normocephalic/atraumatic Cardiac: Regular rate Respiratory: unlabored breathing Abdominal: Soft, non-distended. No guarding or rebound. Neurologic: No focal neurological deficits.??Moves all extremities spontaneously. Extremities: Symmetrical muscle bulk, no visible erythema or edema.?? Psych: Mood and affect stable, appearance appropriate, good eye contact, talkative ?? Asset Protection Specialist: Speculum: Normal appearing perineum, vulva, urethral meatus, vaginal and cervical mucosa, no lesions appreciated, no blood in vaginal??vault. No bleeding, clot or tissue noted form??cervical os, os visually closed,??multiparus-appearing cervix. Bimanual: Cervix closed, small, anteverted and mobile uterus. No CMT.??No adnexal fullness. Bilateral adnexal tenderness with abdominal hand. ?? OB Assessment Cervical Cervical Dilatation0 cm Assessment/Plan Patient is a 27-year-old -2-0-3 at 5 weeks and 2 days by LMP that presents to [facility] for complaints of spotting. Vitals are within normal limits on [facility]. Pelvic exam without any evidence blood in vaginal vault. Bimanual exam demonstrates a closed cervix. Bedside transabdominal ultrasound demonstrates intrauterine of approximately 6 weeks gestation. Courage patient to keep her formal dating ultrasound appointment next week for dating purposes. She is Rh +. ? Reviewed that bleeding in is never normal but not uncommon. Discussed with patient many causes for vaginal bleeding in early that may or may not be related to . We discussed that the differential diagnosis of vaginal bleeding in the first trimester includes implantation, bleeding from cervical friability, infection, failed , and miscarriage. We discussed that at this time it is difficult to determine the diagnosis. Reviewed return precautions, including but not limited to, heavy vaginal bleeding soaking through >1 pad per hour or severe pelvic pain not relieved with Tylenol and heating pain. All patient questions answered, patient discharged home. OB History History?(1,2,0,3)? # 1 ?Baby 1 ?Outcome Date:??12/12/2015?Outcome or Result:??Vaginal ?Gest Age:??33 weeks 3 days ? Outcome:??Live ? Sex:??Male?Wt:?2268 g ?Anesthesia Type:??Epidural ?Hospital:??[facility] ?Comment:??PPROM, uncomplicated per pt. ?? # 2 ?Baby 1 ?Outcome Date:??09/05/2018?Outcome or Result:??Vaginal ?Gest Age:??36 weeks ? Outcome:??Live ? Sex:??Female?Wt:?2722 g ?Anesthesia Type:??Epidural ?Hospital:??[facility] ?? # 3 ?Baby 1 ?Outcome Date:??06/20/2021?Outcome or Result:??Unknown ?Gest Age:??Fullterm ? Outcome:??-- ? Sex:??Female ?Hospital:??[facility] Labs?? No Results Found. Problem List Active Active Problem List Bicornuate uterus: (Medical) Family history of deafness: (Medical) History of delivery x 2: (Medical) Hx of Pericardial effusion, : (Medical) 2019, tx'd here at [facility]. Low weight gain in : (Medical) : (Obstetric) (05/11/23) Request for sterilization: (Medical) Procedure/Surgical History Ads - Adenoidectomy Tonsillectomy Home Medications Acetaminophen: 1,000 mg = 2 tablet, By Mouth, 3 times a day, PRN (for pain) Doxylamine: 25 mg = 1 tablet, By Mouth, Daily, Take one tablet before bed. May take additional tablet in the morning if nausea still persistent Multivitamin, : 1 tablet, Chew, Daily Progesterone: See Instructions, 1 capsule vaginally daily at night Allergies No Known Medication Allergies Social History Alcohol Use: Past. Other: Special occassions only prior to .. Substance Abuse Use: Never. Tobacco Use: Never (less than 100 in lifetime). Family History Father: Cancer Brother: Deafness symptom Plan No Data Found * Timothy Chester MD: PERFORM Event Display: History and Physical Hospital Authored Date: [id number] attending note above note appreciated agree with assessment and plan Note * Roxi Richmond RN: PERFORM Event Display: Discharge/Transfer Note Hospital Authored Date: [id number] Nursing Discharge Note Entered On: 06/17/2023 4:29 EDT Performed On: 06/17/2023 4:29 EDT by Roxi Richmond RN Nursing Discharge Note 2 Discharge Time : 06/17/2023 4:29 EDT Discharge Level of Care at Discharge : Home/Penitentiary/Foster Care Patient Left Unit Via : Ambulatory Patient Accompanied Off Unit with : Significant other DC Instructions Provided & Signed by Pt : Yes Patient Understands D/C Instructions : Yes Patient Instructions Discharge Signed : Yes Did Pt have Specialty Bed or Wound Vac : No Roxi Richmond RN - 06/17/2023 4:29 EDT * Event Display: Discharge/Transfer Note Hospital Authored Date: [id number] * Roxi Richmond RN: PERFORM Event Display: Patient Education/Instruction Authored Date: [id number] Inpatient Adult Discharge Instructions. [address] [address] Name: BEN BAILEY : 1995?? Visit: 06/17/2023 03:02?? Current Date: 06/17/2023 04:19 ?? Account: [id number]?? Inpatient Adult Discharge Instructions We would like [...] and their families. Surveys are administered by [employer] ?? If further treatment with your primary care physician or another doctor is recommended, it is important for you to keep the appointment. Call your primary care physician or return to the Emergency Department immediately if your condition worsens, fails to improve, or new symptoms develop. If you need to find a doctor, you can call [facility] Link for a referral at [phone] or toll free at [phone] ([phone]) or log in to [email or web address].. ?? [facility], in keeping with [facility] guidance, no longer requires face masks for [...] a health care leila of your choosing. [employer] is a website that allows you to securely view your medical information including your hospital discharge summary, office visit summaries, medications and follow-up visits. You can also request appointments, renew medications, and request access to your medical information using a health care leila of your choosing, or just ask a question. You can enroll at [email or web address] or register during your next office visit. You have been discharged from [facility], Patient Care Unit: [facility]??. If you have any questions regarding these instructions, including results of studies pending, afteryou leave, please call us and we will be happy to assist you 12/10. [facility] Your Care Team Attending Physician Kenneth Meza MD?? Consulting Providers Kenneth Meza MD?? Tests Performed Below is a partial list of the tests performed during your hospitalization. You may have had other tests and procedures not included in this list. Please discuss all test results with your provider. Chlamydia/Neisseria RNA, TMA, Ur/TP/Swab?-- Results Pending -- You will be contacted within 72 hours with your results. Chlamydia/Neisseria RNA, TMA, Ur/TP/Swab?? Primary Care Provider Dalia CH, Katherine Dalton? Advance Directive Health Care Proxy on File No Patient has a Designated Caregiver: No Discharge Vitals Temperature: 98.5 DegF Pulse Rate: 79 bpm Respiratory Rate: 18 br/min Systolic Blood Pressure: 129 mm Hg Diastolic Blood Pressure: 66 mm Hg Oxygen Saturation: 100 % Studies Pending All studies ordered during this hospital stay have been completed unless listed below. Please discuss all pending results with your provider listed above in these instructions. ?? Chlamydia/Neisseria RNA, TMA, Ur/TP/Swab?? What to do next Instructions From Your Doctor ?? Orders?? You Need to Schedule the Following Appointments Follow Up with??[facility] [phone] Follow Up with??Follow up as scheduled for routine OB visits Discharge Medications LISBETH BEN BAILEY :1995 Visit Date:06/17/2023 Medications: Please continue your medications until treatment is completed or stopped by your provider. Medications not listed below should be discontinued. Discuss any questions related to medications with your provider. What How Much When Why Instructions Next Dose Unchanged Acetaminophen (Tylenol Extra Strength 500 mg oral tablet) 2 tab(s) Oral 3 times a day as needed for for pain Unchanged Doxylamine (doxylamine 25 mg oral tablet) 1 tab(s) Oral Daily Take one tablet before bed. May take additional tablet in the morning if nausea still persistent ?? Unchanged Multivitamin, ( 19 ([place]) oral tablet, chewable) 1 tab(s) Chew Daily Unchanged Progesterone (Prometrium 200 mg oral capsule) See instructions 1 capsule vaginally daily at night ?? Prescription Given During Visit No new medications prescribed at time of discharge.?? Laboratory Results Below is a partial list of the most recent Laboratory test results done prior to this discharge. You may have had other tests and procedures not included in this list. Please discuss all test resultswith your provider. Allergies (NKA means No Known Allergies) No Known Medication Allergies Problems Active Problems??(7) Bicornuate uterus?? Family history of deafness?? History of delivery x 2?? Hx of Pericardial effusion, ?? Low weight gain in ? Request for sterilization?? Education Materials Below is the list of Educational Leaflet Providered with your Discharge Instructions. [employer] Patient Education - Bleeding During Early ?? Valuables and Belongings I fully understand and agree that [facility] accepts no responsibility for all my personal [...] belongings home. ? Other Discharge Information ? Pulmonary Rehab Status?? Pulmonary Rehab Discharge Status?? [...] are strongly encouraged to quit. Please call [facility] [employer] Link at [phone] or [phone] ([phone]) or log in to [email or web address] for referrals to smoking cessation programs. ?? 988 Suicide & Crisis Lifeline is available 12/10 if you or someone you know needs to find a reason to keep living. By calling 988 you'll be connected to a skilled, trained counselor at a crisis center in your area. INPATIENT DISCHARGE INSTRUCTIONS SIGNATURE PAGE BEN MCCONNELL Location:[facility] Registration Date and Time:06/17/2023 03:02 EDT Primary Care Physician: Katherine Gómez NP, Attending Physician: Kenneth Meza MD, I LISBETH BAILEY ALLEYSONYA, have received the above patient education materials/instructions and have verbalized understanding. If ambulance or transport services are being used I further acknowledge being given a choice of service. ?? If you need to contact me, please call me at this number: . Patient/Intermediate Card Tender Name: Patient/Intermediate Card Tender Signature: Relationship to Patient: Witness Name/Signature: Date: * Richmond Roxi GODFREY: PERFORM, SIGN, VERIFY Event Display: Patient Education Handout Authored Date: [id number] Roxi Vaughan RN: PERFORM Event Display: Patient Education Leaflets Authored Date: [id number] Bleeding During Early ?? [address] Bleeding During Early If you???ve had bleeding early in your , you???re not alone. Many other women have early bleeding, too. And in most cases, nothing is wrong. But your healthcare provider still needsto know about it. They may want to do tests to find out why you???re bleeding. Call your provider if you see bleeding during . Tell your provider if your blood is Rh negative. Then they can figure out if you need anti-D immune globulin treatment. What causes early bleeding? The cause of bleeding early in is often unknown. But many factors early on in may lead to light bleeding (called spotting) or heavier bleeding. These include: ??? Having sex ??? When the embryo implants on the uterine wall ??? Bleeding between the sac membrane and the uterus (subchorionic bleeding) ??? loss (miscarriage) ??? The embryo implants outside of the uterus (ectopic ) ?? If you see spotting Light bleeding is the most common type of bleeding in early . If you see it, call your healthcare provider. Chances are, they will tell you that you can care for yourself at home. ?? If tests are needed Depending on how much you bleed, your healthcare provider may ask you to come in for some tests. A pelvic exam, for instance, can help see how far along your is. You also may have an ultrasound or a Doppler test. These imaging tests use sound waves to check the health of your baby. The ultrasound may be done on your belly or inside your vagina. You may also need a special blood test. This test compares your hormone levels in blood samples taken 2 days apart. The results can help your provider learn more about the implantation of the embryo. Your blood type will also need to be checked to assess if you will need to be treated for Rh sensitization.?? Ultrasound can help check the health of your fetus. ?? Warning signs If your bleeding doesn???t stop or if you have any of the following, get medical care right away: ??? Soaking a sanitary pad each hour ??? Bleeding like you???re having a period ??? Cramping or severe belly pain ??? Feeling dizzy or faint ??? Tissue passing through your vagina ??? Bleeding at any time after the first trimester ?? Questions you may be asked Bleeding early in isn't normal. But it is common. If you???ve seen any bleeding, you may be concerned. But keep in mind that bleeding alone doesn???t mean something is wrong. Just be sure to call your healthcare provider right away. They may ask you questions like these to help find the cause of your bleeding: ??? When did your bleeding start? Is your bleeding very light or is it like a period? Is the blood bright red or brownish? Have you had sex recently? Have you had pain or cramping? Have you felt dizzy or faint? ?? Monitoring your Bleeding will often stop as quickly as it began. Your may go on a normal path again. You may need to make a few extra visits. But you and your baby will most likely be fine. ?? Last Reviewed Date: 2021 ?? 8215-3767 [employer] All rights reserved. This information is not intended as a substitute for professional medical care. Always follow your healthcare professional's instructions. ?? Patient Care team information Care Team Personnel Name: Katherine Gómez NP Position: S Outreach Member Role: PCP Address: Address: [address] [place] [address]- Care Team Related Persons Name: MINO LENNON Address: home [address] [place] [address] Name: GUERITA STONE Address: home [address] [place] [address] Name: MICHELLE BAILEY Address: home [address] [place] [address] Name: TATIANNA OLVIO Address: home [address] [place] [address]
--- OUTSIDE RECORDS SUMMARY | 2023-11-23 13:10 | XMS_ITS | Continuity of Care Document ---
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 Plant Operator Name Role Phone Katherine Gómez NP Primary Care Physician Encounter [facility] [id number] Date(s): 07/29/23 - 09/30/23 [facility] and [address] [address] Attending Physician: Not on Staff, Attending MD Admitting Physician: Kimber Reynolds CNM Referring Physician: Kimber Reynolds CNM Allergies, Adverse Reactions, Alerts No Known Medication Allergies Immunizations Given and Recorded Vaccine Date Status Refusal Reason influenza virus vaccine, inactivated 01/09/20 Give n Medications Miconazole 7 vaginal cream with applicator 1 application, Vaginally, Daily at bedtime, for 7 days, # 45 Gm, 0 Refills, Acute 10/04/23 10:48:00EDT, 09/27/23 10:48:00 EDT, Cream, [id number], Partial fill upon patient request if the prescription is for a schedule II opioid drug., 1 appli... Start Date: 09/27/23 Stop Date: 10/04/23 Status: Ordered 19 ([place]) oral tablet, chewable 1 tablet, Chew, Daily, # 30 tablet, 11 Refills, Maintenance, 09/27/23 10:49:00 EDT, [id number], 1 tablet Chew Daily, 163, cm, 09/27/23 10:02:00 EDT, Height, 61.24, kg, 09/27/23 10:02:00 EDT, Dry Weight Start Date: 09/27/23 Status: Ordered progesterone 100 mg vaginal insert 1 tablet, Vaginally, Daily at bedtime, # 90 tablet, 3 Refills, Maintenance, 09/27/23 10:49:00 EDT, Tablet, [id number], Partial fill upon patient request if the [...] Confirmed Active Request for sterilization Confirmed Active [address]607, tx'd here at [facility]. Social History Social History Type Response Smoking Status Never (less than 100 in lifetime) entered on: 11/15/19 Sex Patient Care team information Care Team Personnel Name: Dalia CH, Katherine Dalton Position: [facility] Outreach Member Role: PCP Address: Address: [address] [place] [address]- [place] Care Team Related Persons Name: BILL BELTRÁN Address: home [address] [place] [address] Name: MINO LENNON Address: home [address] [place] [address] Name: GUERITA STONE Address: home [address] [place] [address] Name: MICHELLE BAILEY Address: [address] [place] [address] Name: TATIANNA OLIVO Address: home [address] [place] [address]
--- OUTSIDE RECORDS SUMMARY | 2023-11-23 13:10 | XMS_ITS | Continuity of Care Document ---
Author Organization [facility] Address [address] [place] [address]- Care Team Providers Care Manuscript Editor Name Role Phone Katherine Gómez NP Primary Care Physician [phone] Encounter [facility] Date(s): 07/30/23 - 08/29/23 [facility] and [address] [address] Allergies, Adverse Reactions, Alerts No Known Medication Allergies Immunizations Given and Recorded Vaccine Date Status Refusal Reason influenza virus vaccine, inactivated 01/09/20 Give n Medications 19 ([place]) oral tablet, chewable 1 tablet, Chew, Daily, # 30 tablet, 11 Refills, Maintenance, 02/12/20 16:06:00 EST, [facility], 1 tablet Chew Daily, 164, cm, 02/12/20 15:34:00 EST, Height, 67, kg, 01/09/20 19:02:00 EDT, Dry Weight Start Date: 02/12/20 Status: Ordered progesterone 100 mg vaginal insert 1 tablet, Vaginally, Daily at bedtime, # 90 tablet, 3 Refills, Maintenance, 07/29/23 10:42:00 EDT, Tablet, [facility], Partial fill upon patient [...] Confirmed Active Request for sterilization Confirmed Active 79942, tx'd here at [facility]. Social History Social History Type Response Smoking Status Never (less than 100 in lifetime) entered on: 11/15/19 Sex Patient Care team information Care Team Personnel Name: Dalia CH, Katherine Dalton Position: [facility] Outreach Member Role: PCP Address: Address: [address] [place] [address]- Care Team Related Persons Name: BILL BELTRÁN Address: home [address] [place] [address] Name: MINO LENNON Address: home [address] [place] [address] Name: GUERITA STONE Address: [address] [place] [address] Name: MICHELLE BAILEY Address: [address] [place] [address] Name: TATIANNA OLIVO Address: home [address] [place] [address]
--- OUTSIDE RECORDS SUMMARY | 2023-11-23 13:10 | XMS_ITS | Continuity of Care Document ---
Author Organization [facility] Address [address] [place] [address], [address] [place] [address]- Care Team Providers Care Program/Music Director Name Role Phone Dalia CH, Katherine Dalton Primary Care Physician [id number] Date(s): 07/23/23 - 08/22/23 [facility] [employer] [address] [facility] [place], [place] [address] Allergies, Adverse Reactions, Alerts No Known Medication Allergies Immunizations Given and Recorded Vaccine Date Status Refusal Reason influenza virus vaccine, inactivated 01/09/20 Give n Medications 19 ([place]) oral tablet, chewable 1 tablet, Chew, Daily, # 30 tablet, 11 Refills, Maintenance, 02/12/20 16:06:00 EST, [facility], 1 tablet Chew Daily, [...] Confirmed Active Request for sterilization Confirmed Active 60227, tx'd here at [facility]. Social History Social History Type Response Smoking Status Never (less than 100 in lifetime) entered on: 11/15/19 Sex Patient Care team information Care Team Personnel Name: Katherine Gómez NP Position: [facility] Outreach Member Role: PCP Address: Address: [address] [place] [address]- Care Team Related Persons Name: BILL BELTRÁN Address: home [address] [place] [address] Name: MINO LENNON Address: home [address] [place] [address] Name: GUERITA STONE Address: [address] [place] [address] Name: MICHELLE BAILEY Address: [address] [place] [address] Name: TATIANNA OLIVO Address: home [address] [place] [address]
--- OUTSIDE RECORDS SUMMARY | 2023-11-23 13:10 | XMS_ITS | Continuity of Care Document ---
Author Organization [facility] Address [address] [place] [address]- Care Team Providers Care Pickling Operator Name Role Phone Dalia CH, Katherine Dalton Primary Care Physician Encounter [facility] Date(s): 06/07/23 - 06/14/[address] [address] Attending Physician: Arnol Hoover MD Allergies, Adverse Reactions, Alerts No Known [...] tablet, 6 Refills, Maintenance, 02/12/20 16:06:00 EST, [facility], Partial fill upon patient... Start Date: 02/12/20 Status: Ordered 19 ([place]) oral tablet, chewable 1 tablet, Chew, Daily, # 30 tablet, 11 Refills, Maintenance, 02/12/20 16:06:00 EST, [facility], 1 tablet Chew Daily, 164, cm, 02/12/20 15:34:00 EST, Height, 67, kg, 01/09/20 19:02:00 EDT, Dry Weight Start Date: 02/12/20 Status: Ordered Prometrium 200 mg oral capsule See Instructions, 1 capsule vaginally daily at night, # 30 capsule, 6 Refills, Maintenance, 02/12/20 16:06:00 EST, [facility], 164, cm, 02/12/20 15:34:00 EST, [...] Confirmed Active Request for sterilization Confirmed Active 52025, tx'd here at [facility]. Vital Signs Most recent to oldest [Reference Range]: 1 Weight 62.1 kg (06/07/23 2:31 PM) Oxygen Saturation [94-100 %] 100 % (06/07/23 2:31 PM) Pulse Rate [55-90 bpm] 71 bpm (06/07/23 2:31 PM) Blood Pressure [90-138/55-84 mm Hg] 112/ 66mm Hg (06/07/23 2:31 PM) Respiratory Rate [16-30 br/min] 18 br/mi n (06/07/23 2:31 PM) Temperature [96.8-100.4 DegF] 98.3 DegF (06/07/23 2:31 PM) Mode of Delivery (Oxygen) Room air (06/07/23 2:31 PM) Blood pressure sites Arm, right (06/07/23 2:31 PM) Temperature Route Oral (06/07/23 2:31 PM) Dry Weight 62.1 kg (06/07/23 2:31 PM) Weight Obtained Via Standing scale (06/07/23 2:31 PM) Dry Weight Obtained Via Standing scale (06/07/23 2:31 PM) Social History Social History Type Response Smoking Status Never (less than 100 in lifetime) entered on: 11/15/19 Sex Patient Care team information Care Team Personnel Name: Katherine Gómez NP Position: S Outreach Member Role: PCP Address: Address: [address], [place] [address]- Care Team Related Persons Name: BIJU LENNONHerlinda Address: home [address] [place] [address] Name: GUERITA STONE Address: [address] [address] Name: MICHELLE BAILEY Address: [address] [address] Name: TATIANNA OLIVO Address: [place] [id number]
--- OUTSIDE RECORDS SUMMARY | 2023-11-23 13:10 | XMS_ITS | Continuity of Care Document ---
Author Organization [facility] Address [address] [place] [address], [address] [place] [address]- Care Team Providers Care Inspection Engineer Name Role Phone Dalia MECHANICAL REPAIR WORKER, Katherine Dalton Primary Care Physician [id number] Date[facility] 10/18/23 - 11/21/23 [facility] [address] [facility], [address] [place] [address]- Attending Physician: Susan Rico MD Referring Physician: Terry Kimball CNM Allergies, Adverse Reactions, Alerts No Known Medication Allergies Immunizations Given and Recorded Vaccine Date Status Refusal Reason influenza virus vaccine, inactivated 01/09/20 Give n Medications 19 ([place]) oral tablet, chewable 1 tablet, Chew, Daily, [...] Confirmed Active Request for sterilization Confirmed Active [address], tx'd here at [facility]. Social History Social History Type Response Smoking Status Never (less than 100 in lifetime) entered on: 11/15/19 Sex Patient Care team information Care Team Personnel Name: Katherine Gómez NP Position: [facility] Outreach Member Role: PCP Address: Address: [address] [place] [address]- Care Team Related Persons Name: BILL BELTRÁN Address: home [address] [place] [address] Name: MINO LENNON Address: home [address] [place] [address] Name: GUERITA STONE Address: [address] [place] [address] Name: MICHELLE BAILEY Address: [address] [place] [address] Name: TATIANNA OLIVO Address: home [address] [place] [address]
--- OUTSIDE RECORDS SUMMARY | 2023-11-23 13:11 | XMS_ITS | Continuity of Care Document ---
Author Organization [facility] ter Address [address] [place] [address]- Care Team Providers Care Critical Care Technician Name Role Phone Dalia CH, Katherine Dalton Primary Care Physician [phone] Encounter [facility] Date(s): 06/07/23 - 06/07/[address] [address]- Discharge Disposition: Transferred [facility]term [facility] hospit Attending Physician: Not on Staff, Attending MD Admitting Physician: Not on Staff, Admitting MD Referring Physician: Not on Staff, Referring [...] tablet, 6 Refills, Maintenance, 02/12/20 16:06:00 EST, [facility], Partial fill upon patient... Start Date: 02/12/20 Status: Ordered 19 ([place]) oral tablet, chewable 1 tablet, Chew, Daily, # 30 tablet, 11 Refills, Maintenance, 02/12/20 16:06:00 EST, [facility], 1 tablet Chew Daily, 164, cm, 02/12/20 15:34:00 EST, Height, 67, kg, 01/09/20 19:02:00 EDT, Dry Weight Start Date: 02/12/20 Status: Ordered Prometrium 200 mg oral capsule See Instructions, 1 capsule vaginally daily at night, # 30 capsule, 6 Refills, Maintenance, 02/12/20 16:06:00 EST, [facility], 164, cm, 02/12/20 15:34:00 EST, Height, [...] Confirmed Active Request for sterilization Confirmed Active 35[address], tx'd here at [facility]. Vital Signs Most recent to oldest [Reference Range]: 1 2 Height 163 cm (06/07/23 12: PM) Weight 61.5 kg (06/07/23 12: PM) Oxygen Saturation [94-100 %] 100 % (06/07/23: PM) 100 % (06/07/23 12: PM) Pulse Rate [55-90 bpm] 78 bpm (06/07/23 12: PM) 84 bpm (06/07/23 12:25 PM) Body Mass Index [18.5-24.99 kg/m2] 23.15 kg/m2 (06/07/23 12: PM) Blood Pressure [90-138/55-84 mm Hg] 105/ 74mm Hg (06/07/23 12: PM) Respiratory Rate [16-30 br/min] 18 br/mi n (06/07/23 12: PM) 18 br/min (06/07/23 12:25 PM) Temperature [96.8-100.4 DegF] 98.4 DegF (06/07/23 12: PM) Mode of Delivery (Oxygen) Room air (06/07/23 12: PM) Room air (06/07/23 12:25 PM) Blood pressure sites Arm, left (06/07/23 12: PM) Temperature Route Oral (06/07/23 12: PM) Dry Weight 61.5 kg (06/07/23 12:27 PM) Weight Obtained Via Patient/family state d (06/07/23 12:27 PM) Dry Weight Obtained Via Patient/family s tated (06/07/23 12:27 PM) Social History Social History Type Response Smoking Status Never (less than 100 in lifetime) entered on: 11/15/19 Sex Patient Care team information Care Team Personnel Name: Katherine Gómez NP Position: [facility] Outreach Member Role: PCP Address: Address: [address] [place] [address]- Care Team Related Persons Name: MINO LENNON Address: [address] [place] [address] Name: GUERITA STONE Address: [address] [place] [address] Name: MICHELLE BAILEY Address: [address] [place] [address] Name: TATIANNA OLIVO Address: home [address] [place] [address]
--- OUTSIDE RECORDS SUMMARY | 2023-11-23 13:11 | XMS_ITS | Continuity of Care Document ---
Author Organization [facility] Address [address] [place] [address], [address] [place] [address]- Care Team Providers Care Acid Regenerator Name Role Phone Dalia CH, Katherine Dalton Primary Care Physician [phone] Encounter [facility] Date(s): 06/09/23 - 07/09/23 [facility] [address] [facility], 4th [address] [place], [place] [address] Allergies, Adverse Reactions, Alerts No Known Medication Allergies Immunizations Given and Recorded Vaccine Date Status Refusal Reason influenza virus vaccine, inactivated 01/09/20 Give n Medications 19 ([place]) oral tablet, chewable 1 tablet, Chew, Daily, # 30 tablet, 11 Refills, Maintenance, 02/12/20 16:06:00 EST, [facility], 1 tablet Chew Daily, 164, cm, [...] Confirmed Active Request for sterilization Confirmed Active 16[address], tx'd here at [facility]. Social History Social History Type Response Smoking Status Never (less than 100 in lifetime) entered on: 11/15/19 Sex Patient Care team information Care Team Personnel Name: Katherine Gómez NP Position: [facility] Outreach Member Role: PCP Address: Address: [address] [place] [address]- Care Team Related Persons Name: BILL BELTRÁN Address: home [address] [place] [address] Name: MINO LENNON Address: [address] [place] [address] Name: GUERITA STONE Address: home [address] [place] [address] Name: MICHELLE BAILEY Address: [address] [place] [address] Name: TATIANNA OLIVO Address: home [address] [place] [address]
[2023-11-23 13:17] VITALS: BP 124/57; PULSE 77; BMI 24.0
== END 2023-11-23 13:30 | disposition home or self-care (01) ==
PROVIDERS: Visit Provider Surgery
DX: D18.01 Hemangioma of skin and subcutaneous tissue (principal); R22.31 Localized swelling, mass and lump, right upper limb; Z33.1 Pregnant state, incidental
CPT/HCPCS: 99203

== ENCOUNTER → 2023-11-23 13:08 | Outpatient (BNVA) | payer MEDICAID, SELFPAY | PROVIDERS: Visit Provider Surgery | DX: D18.01 Hemangioma of skin and subcutaneous tissue (principal); R22.31 Localized swelling, mass and lump, right upper limb | CPT/HCPCS: 99202 ==

== ENCOUNTER 2024-07-06 10:59 | Outpatient (REF) | payer MEDICAID, SELFPAY ==
--- NOTE | ~2024-07-06 | US_ITS ---
EXAMINATION: US SCREENING ULTRASOUND BREAST, BILATERAL CLINICAL INFORMATION: Dense breasts on mammography. Screening ultrasound. Also follow-up for previously seen cysts correlating with the palpable mass in the right axilla. COMPARISON: [facility] on PACS. TECHNIQUE: Ultrasound is performed using grayscale imaging and color Doppler. Imaging is performed to include the four quadrants and retroareolar region. Both breasts are imaged. FINDINGS: Right breast: There is no suspicious finding by ultrasound. There is no solid mass or focal architectural abnormality. Previously seen area of palpable mass in the right axilla with cysts is no longer seen and resolved. Left breast: There is no suspicious finding by ultrasound. There is no solid mass or focal architectural abnormality. US/US breast BI complete IMPRESSION: No suspicious findings on screening breast ultrasound. ASSESSMENT: BI-RADS 1 - Negative RECOMMENDATION: 1 year F/U This patient's information was entered into a reminder system with a target due date for their next mammogram. Electronically signed by: Barbra Mishra DO 07/06/2024 02:32 PM EDT
--- OUTSIDE RECORDS SUMMARY | 2024-07-06 13:29 | XMS_ITS | Encounter Summary ---
Author Organization [facility] Address [address] 7[address] [place] [address] Care Team Providers Care Roof Shingler Name Role Phone Dalia Katherine ROSALES Primary Care Provider [phone] Encounter Details Date Type Department Care Team (Late st Contact Info) Description 03/06/2024 Orders Only [facility] [address] [place] [address] Stormy Augustin Social History Tobacco Use Types Packs/Day Years Used Date Smoking Tobacco: Never Assessed Housing Stability Answer Date Recorded What is your housing situation today? I have lan pickett 02/03/[address] you li ve. Do you have problems with any of the following? None of the above 02/03/2024 Food Insecurity Answer Date Recorded Within the past 12 months, y ou worried that your food would run out before you got money to buy more: Sometimes True 2023 Within the past 12 months,th e food you bought just didn't last and you didn't have enough money to get more: Sometimes True 02/03/2024 Transportation Answer Date Recorded In the past 12 months, has l ack of transportation kept you from medical appts, meetings, work or from getting things needed for daily living? No 02/03/2024 Utilities Answer Date Recorded In the past 12 months, has t he electric, gas, oil or water company threatened to shut off services in your home? No 02/03/2024 Internet Access Answer Date Recorded Internet Access Q1 Yes 02/03/2024 Internet Access Q2 Not on file 02/03/2024 Comments Yes Sex and Gender Information Value Date Recorded Sex Assigned at Female 01/19/2022 10:22 AM EDT Legal Sex Female 10:22 AM EDT Gender Identity Female 01/19/2022 10:22 AM EDT Sexual Orientation Straight 01/19/2022 10 :22 AM EDT documented as of this encounter Plan of Treatment Not on file documented as of this encounter Procedures Procedure Name Priority Date/Time Associated Diagnosis Comments HM PAP/HPV Routine 09/27/2023 12:00 AM EDT documented in this encounter Results * (ABNORMAL) HM PAP/HPV (09/27/2023 12:00 AM EDT) Pap Smear 2. ASCUS(A) 1. NILM HPV Not Detected Undetected, Indeterminat e, Quantitative , Not Detected Historical Provider HEALTH MAINTENANCE Edited Result - Final documented in this encounter Visit Diagnoses Not on filedocumented in this encounter Care Teams Roof Shingler Relationship Specialty Start Date End Date Katherine Gómez ANP [address] [place] [address] PCP - General Family Medicine 09/05/19 Kourtney Kramer Pain Medicine Physician 02/03/24 documented as of this encounter
--- OUTSIDE RECORDS SUMMARY | 2024-07-06 13:29 | XMS_ITS | Clinical Summary ---
Author Organization [facility] Address [address] [facility] 7t [place] [address] Care Team Providers Care Code Official Name Role Phone Dalia Katherine ROSALES Primary Care Provider [phone] Allergies No known active allergies Medications Acetaminophen Extra Strength 500 MG tablet Take 500 mg by mouth every 6 (six) hours if needed. 04/15/19 23 Active amoxicillin-cl avulanate (Augmentin) 875-125 MG tablet Take 1 tablet by mouth 2 times daily. 04/15/19 23 Active Ciprodex otic suspension INSTILL 4 DROPS INTO THE EAR(S) 2 TIMES A DAY FOR 7 DAYS 04/15/19 23 Active ibuprofen 800 MG tablet Take 800 mg by mouth every 8 (eight) hours if needed. 04/15/19 23 Active lidocaine (Lidoderm) 5 % patch Place 1 patch on the skin at bed time. 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 Request for sterilization 06/28/2024 Vaginal itching 06/28/2024 Preop examination 06/23/2024 Assessment & Plan (06/23/2024 11:05 AM EDT): Patient is low risk for low risk procedure, RCRI score is 0 which means a 3.9% risk Surgery should proceed as scheduled It was advised n.p.o. after midnight for the procedure EKG and breast ultrasound ordered today 24 weeks gestation of 10/27/2023 Assessment & Plan (10/27/2023 11:59 AM EDT): Pt is 24 weeks and 4 days gestational age. -no acute concerns Axillary lump, right 10/27/2023 Assessment & Plan (10/27/2023 12:02 PM EDT): -per physical exam on 10/27/23, pt was found to have a 2 cm lump. No sign of infection, no erythema, induration or increased warmth. -Differential includes swollen lymph node or cyst -Breast exam normal -ordered US 10/27/23 -discussed ER and return precautions. Geographic tongue 10/27/2023 Assessment & Plan (10/27/2023 12:03 PM EDT): -discussed return precautions including for worsening symptoms Abdominal pain 05/10/2012 Dysmenorrhea 05/10/2012 Resolved Problems Problem Noted Date Diagnosed Date Resolved Date Abscess 10/27/2023 10/27/2023 Encounters Date Type Department Care Team Description 06/27/[address] [address] Katherine Gómez ANP Nurse Triage 06/23/2024 10:15 AM EDT Office Visit [address] [address] Joy Syed MD Preop examination (Primary Dx) 06/23/2024 Travel 06/12/2024 Telephone [facility] [address] Katherine Gómez ANP Call Back Request 06/09/[address] [address] Katherine Gómez ANP Care Management ([facility] follow up call) 06/02/2024 Telephone [facility] [address] [place], [place] [phone] Kristen Mcmillan OD 06/02/2024 Population Health Risk Score [facility] [address] [address] Provider, Population Health Generic 05/16/2024 Telephone [facility] MEDICINE [address] [place] [address] Katherine Gómez ANP Care Management ([facility] unable to lvm) 04/12/2024 Telephone [facility] [address] [place] [address] Kourtney Kramer Care Management ([facility] TC #1-lvm) from Last 3 Months Immunizations Name Administration Dates Next Due DTaP 10/20/2000, 8,05/10/1997,03/06,1996 HPV, Quadrivalent 01/10/2013,12/23/2007 Hep B, Adolescent or Pediatric 1996,1996,1996 IPV 10/20/2000, 8,03/06/1997,12/07 Influenza injectable quadriv alent preservative free 01/21/2015 Influenza, IIV3, injectable 01/09/2020 Influenza, live, intranasal 01/10/2013 MMR 10/20/2000,09/12/1997 Meningococcal MCV4P ACYW-135 01/21/2015,01/11/20 13 Moderna Covid-19 Vaccine 6mo -5y Bivalent 02/01/2023 Tdap 10/29/2015,12/23/2007 Varicella 12/23/2007,08/23/1999 Social History Tobacco Use Types Packs/Day Years Used Date Smoking Tobacco: Never Smokeless Tobacco: Never Tobacco Cessation:Counseling Given: Not Answered Alcohol Use Standard Drinks/Week Comments Not Currently 0 (1 standard drink = 0.6 oz pur e alcohol) Housing Stability Answer Date Recorded What is [...] Access Q2 Not on file 02/03/2024 Comments Unknown Sex and Gender Information Value Date Recorded Sex Assigned at Female 01/19/2022 10:22 AM EDT Legal Sex Female 10:22 AM EDT Gender Identity Female 01/19/2022 10:22 AM EDT Sexual Orientation Straight 01/19/2022 10 :22 AM EDT Last Filed Vital Signs Vital Sign Reading Time Taken Comments Blood Pressure 125/71 06/23/2024 10:22 AM EDT Pulse 76 06/23/2024 10:22 AM EDT Temperature 36.3 ??C (97.4 ??F) 06/23/2024 10:22 AM E DT Respiratory Rate 16 06/23/2024 10:22 AM EDT Oxygen Saturation 100% 06/23/2024 10:22 AM EDT Inhaled Oxygen Concentration - - Weight 66.7 kg (147 lb) 06/23/2024 10:22 AM EDT Height 163.8 cm (5' 4.5 ) 06/23/2024 10:22 AM ED T Body Mass Index 24.84 06/23/2024 10:22 AM EDT Plan of Treatment Health Maintenance Due Date Last Done Comments Depression Screening 1996 HIV Screening 1996 Hepatitis B Vaccines (4 of 4 - 4-dose series) 02/28/1997 1996, 1996, 1996 Family Planning (PISQ) 08/30/2011 Hepatitis C Screening 2014 Hepatitis A Vaccines (1 of 2 - Risk 2-dose series) 08/30/2015 COVID-19 Vaccine ( season) 2023 02/01/2023 Influenza Vaccine (#1) 2023 , 01/09/2020, 01/21/2015, Additional history exists SDOH Screening 02/02/2025 02/03/2024 Alcohol/Substance Use Screening 06/23/2025 06/23/2024 Tobacco Screening 06/23/2025 06/23/2024 DTaP/Tdap/Td Vaccines (8 - Td or Tdap) 10/28/2025 10/29/2015, 12/23/2007, 10/20/2000, Additional history exists HPV/Cotest 09/26/2026 09/27/2023 Pap Smear 09/26/2026 09/27/2023, 10/22/2021 Zoster Vaccines (1 of 2) 2046 RSV Patients and Patients Aged 60 years or older (1 - 1-dose 75+ series) 08/30/2071 IPV Vaccines Completed 10/20/2000, 04/22, 03/06/1997, Additional history exists HPV Vaccines Completed 01/10/2013, 12/23/2007 Meningococcal Vaccine Completed 01/21/2015, 013 HIB Vaccines Aged Out No longer eligi ble based on patient's age to complete this topic Pneumococcal Vaccine: Pediatrics (0 to 5 Years) and At-Risk Patients (6 to 49) Years) Aged Out No longer eligible based on patient's age to complete this topic RSV under 20 months Aged Out No longe r eligible based on patient's age to complete this topic Rotavirus Vaccines Aged Out No longer eligible based on patient's age to complete this topic Procedures Procedure Name Priority Date/Time Associated Diagnosis Comments ECG 12-LEAD Routine 06/23/2024 11:33 AM EDT Preop examination HM PAP/HPV Routine 09/27/2023 12:00 AM EDT from Last 3 Months or Most Recently Relevant to Health Maintenance Results * ECG 12 lead (06/23/2024 11:33 AM EDT) Narrative Joy Syed MD - 06/23/2024 11:33 AM EDT NSR HR 63 Joy Carrillo MD ECG ORDERABLES Final Result * (ABNORMAL) HM PAP/HPV (09/27/2023 12:00 AM EDT) Pap Smear 2. ASCUS(A) 1. NILM HPV Not Detected Undetected, Indeterminat e, Quantitative , Not Detected Historical Provider HEALTH MAINTENANCE Edited Result - Final from Last 3 Months or Most Recently Relevant to Health Maintenance Insurance [address] [place], [place] [address] Care Teams Code Official Relationship Specialty Start Date End Date Katherine Gómez ANP [address] [place] [id number] PCP - General Family Medicine 09/05/19 Kourtney Kramer Silk [employer]ocker 02/03/24
== END 2024-07-06 11:00 | disposition home or self-care (01) ==
LOC: HO.MAMMO 10:59
PROVIDERS: PCP Internal Medicine; Visit Provider Surgery
DX: Z01.818 Encounter for other preprocedural examination (principal)
CPT/HCPCS: 76641

== ENCOUNTER → 2024-07-06 11:00 | Outpatient (BNV) | payer MEDICAID, SELFPAY | PROVIDERS: PCP Internal Medicine; Visit Provider Internal Medicine | DX: R92.343 Mammographic extreme density, bilateral breasts (principal) | CPT/HCPCS: 76641 ==

== ENCOUNTER 2024-11-16 16:36 | Outpatient (REF) | payer MEDICAID, SELFPAY ==
--- OUTSIDE RECORDS SUMMARY | 2024-11-16 10:20 | XMS_ITS | Encounter Summary ---
Author Organization [employer] Address [address] [facility] 7[address] [place] [address] Care Team Providers Care Commercial Service Technician Name Role Phone Dalia Katherine ROSALES Primary Care Provider [phone] Reason for Visit * Reason Comments uti symptoms Encounter Details Date Type Department Care Team (Latest Contact Info) Description 11/16/2024 10:20 AM EDT Office Visit [facility] [address], [place] [id number] Laine Manrique DO [address] [place] [address] Vaginal discharge (Primary Dx); Routine screening for STI (sexually transmitted infection); Encounter for initial prescription of injectable contraceptive Social History Tobacco Use Types Packs/Day Years Used Date Smoking Tobacco: Never Smokeless Tobacco: Never Alcohol Use Standard Drinks/Week Comments Not Currently [...] AM EDT documented as of this encounter Last Filed Vital Signs Vital Sign Reading Time Taken Comments Blood Pressure 118/70 11/16/2024 10:12 AM EDT Pulse 65 11/16/2024 10:12 AM EDT Temperature 36.3 C (97.3 F) 11/16/2024 10:12 AM EDT Respiratory Rate 18 11/16/2024 10:12 AM EDT Oxygen Saturation 99% 11/16/2024 10:12 AM EDT Inhaled Oxygen Concentration - - Weight 66.9 kg (147 lb 6.4 oz) 11/16/2024 10:12 AM EDT Height - - Body Mass Index 24.91 06/23/2024 10:22 AM EDT documented in this encounter Progress Notes * Laine Manrique, - 11/16/2024 10:20 AM EDT SUBJECTIVE Jerman Fernandez is a 29 y.o. female who presents for Sick Visit. She presents to [place] today c/o UTI sx. She reports malodorous vaginal discharge >2 weeks. She reports sx started after having sex with the father of her kids. She says she has not been sexually active sine these sx began. She reports yellow discharge that smells bad. She denies any itching. She denies any dysuria, hematuria, or frequency. LMP 3 days ago. She has not been sexually active since then. She is not using any control but would like to restart. She has used depo in the past and would like to start today. History provided by: Patient seismic interpreter used: No Vaginal Discharge Quality: Yellow Severity: Moderate Duration: 2 weeks Timing: Constant Progression: Unchanged Chronicity: New Context: after intercourse Context: not recent antibiotic use Relieved by: None tried Associated symptoms: urinary frequency Associated symptoms: no abdominal pain, no dyspareunia, no dysuria, no fever, no genital lesions, no nausea, no rash, no vaginal itching and no vomiting Risk factors: no new sexual partner Review of Systems Constitutional: Negative for activity change, appetite change, chills, fever and unexpected weight change. Respiratory: Negative for cough and shortness of breath. Cardiovascular: Negative for chest pain, palpitations and leg swelling. Gastrointestinal: Negative for abdominal pain, diarrhea, nausea and vomiting. Genitourinary: Positive for vaginal discharge. Negative for difficulty urinating, dyspareunia, dysuria, frequency, hematuria and urgency. Neurological: Negative for weakness and headaches. Patient Active Problem List Diagnosis Abdominal pain Dysmenorrhea Axillary lump, right Geographic tongue Preop examination Bicornuate uterus Cholestasis of Depression during Family history of deafness History of delivery Low maternal weight gain Non-stress test reactive Noninflammatory pericardial effusion Request for sterilization Vaginal itching No Known Allergies OBJECTIVE Visit Vitals BP 118/70 (BP Location: Left arm, Patient Position: Sitting, BP Cuff Size: Adult) Pulse 65 Temp 97.3 ??F (36.3 ??C) (Temporal) Resp 18 Wt 147 lb 6.4 oz (66.9 kg) SpO2 99% BMI 24.91 kg/m?? OB Status Unknown Smoking Status Never BSA 1.74 m?? Physical Exam Constitutional: General: She is not in acute distress. Appearance: Normal appearance. Cardiovascular: Rate and Rhythm: Normal rate and regular rhythm. Heart sounds: Normal heart sounds. No murmur heard. Pulmonary: Effort: Pulmonary effort is normal. Breath sounds: Normal breath sounds. No wheezing or rhonchi. Neurological: General: No focal deficit present. Mental Status: She is alert and oriented to person, place, and time. Cranial Nerves: No cranial nerve deficit. Motor: No weakness. Gait: Gait normal. Psychiatric: Mood and Affect: Mood normal. Office Visit on 11/16/2024 Component Date Value Ref Range Status Color, UA 11/16/2024 Yellow Final Clarity, UA 11/16/2024 Clear Final Glucose, UA 11/16/2024 Negative Final Bilirubin, UA 11/16/2024 Negative Final Ketones, UA 11/16/2024 Negative Final Spec Grav, UA 11/16/2024 1.030 Final Blood, UA 11/16/2024 Negative Negative, None Detected Final pH, UA 11/16/2024 5.5 Final Protein, UA 11/16/2024 Negative Final Urobilinogen, UA 11/16/2024 0.2 Final Leukocytes, UA 11/16/2024 Negative Negative, Rare, Trace Final Nitrite, UA 11/16/2024 Negative Negative, None Detected Final Preg Test, Ur 11/16/2024 Negative Negative, Indeterminate, None Detected, Invalid, Specimen unsatisfactory for evaluation, Weakly Positive, 2+ Final Assessment/Plan Diagnoses and all orders for this visit: Vaginal discharge Probable BV -treat empirically with flagyl BID x 1 week -send BV panel and GC/CT -advised contact [facility] if sx do not resolve, she agrees with plans Routine screening for STI (sexually transmitted infection) -referred for STI/HIV screening -encouraged condom use Encounter for initial prescription of injectable contraceptive Desiring contraception, Hcg neg -restart depo-provera today with [place] RN --Follow-up with PCP as scheduled or sooner prn-- Current Outpatient Medications: Acetaminophen Extra Strength 500 MG tablet, Take 500 mg by mouth every 6 (six) hours if needed., Disp: , Rfl: ibuprofen 800 MG tablet, Take 800 mg by mouth every 8 (eight) hours if needed., Disp: , Rfl: lidocaine (Lidoderm) 5 % patch, Place 1 patch on the skin at bed time., Disp: , Rfl: medroxyPROGESTERone (Depo-Provera) 150 MG/ML injection, Inject 1 mL (150 mg) into the muscle every 3 (three) months., Disp: 1 mL, Rfl: 3 metroNIDAZOLE (Flagyl) 500 MG tablet, Take 1 tablet (500 mg) by mouth 2 times daily for 7 days., Disp: 14 tablet, Rfl: 0 Current Facility-Administered Medications: medroxyPROGESTERone (Depo-Provera) injection 150 mg, 150 mg, Intramuscular, q3 months, Laine Manrique DO, 150 mg at 11/16/24 1125 Scribe Attestation: I, Robbie Arce, am serving as a scribe to document services personally performed by Laine Guerrero, based on the patient's response to questions by provider and provider's statements to me. 11/16/24 12:57 PM Physicians Attestation: I, Laine Manrique DO, have reviewed the information by the scribe, Robbie Arce, for accuracy and agree with its content. * Kisha Vidal RN - 11/16/2024 10:20 AM EDT SUBJECTIVE: Jerman Fernandez presenting to [facility]. Pt requesting first depo injection. Allergies verified. Standing order verified. Provider placed today 11/13/24. Per review of order, end date on standing order02/09/26. OBJECTIVE: Vitals: 11/16/24 1012 BP: 118/70 BP Location: Left arm Patient Position: Sitting BP Cuff Size: Adult Pulse: 65 Resp: 18 Temp: 97.3 ??F (36.3 ??C) TempSrc: Temporal SpO2: 99% Weight: 147 lb 6.4 oz (66.9 kg) Lab Results Component Value Date PREGTESTUR Negative 11/16/2024 Contraception counseling provided: Yes Depo-Provera 150 mg/ml administered intramuscularly to: leftdeltoid. Medication was tolerated well. ASSESSMENT: Contraceptive Management PLAN: Jerman Salehdo scheduled for next Depo-Provera administration with team nurse in on 02/02/2025. Pt scheduled for urine HCG on 12/18/24 with sara team nurses. Depo window February 01-March 01. Advised pt depo protects against and does not protect against STI's. Pt verbalized understanding. Jerman Fernandez agreeable to plan. documented in this encounter Plan of Treatment Upcoming Encounters Date Type Department Care Team (Late st Contact Info) Description 12/18/2024 10:00 AM EDT Clinical Support [facility] [address] [place] [phone] 02/02/2025 9:30 AM EST Clinical Support [facility] [address] [place] [phone] Scheduled Orders Name Type Priority Associated Diagnoses Orde r Schedule Hepatitis B surface antigen, EIA Lab Routine Routine screening for STI (sexually transmitted infection) Expected: 11/16/2024 (Approximate), Expires: 11/16/2025 HIV-1/2 Antigen and Antibodies, Fourth Generation, with Reflexes Lab Routine Routine screening for STI (sexually transmitted infection) Expected: 11/16/2024 (Approximate), Expires: 11/16/2025 Hepatitis C Antibody with Reflex to HCV, RNA, Quantitative, Real-Time PCR Lab Routine Routine screening for STI (sexually transmitted infection) Expected: 11/16/2024, Expires: 11/16/2025 RPR (Monitor) with Reflex to Titer Lab Routine Routine screening for STI (sexually transmitted infection) Expected: 11/16/2024, Expires: 11/16/2025 Hepatitis B Surface Antibody, Qualitative Lab Routine Routine screening for STI (sexually transmitted infection) Expected: 11/16/2024 (Approximate), Expires: 11/16/2025 Bacterial Vaginosis Panel Microbiology Routine Vaginal discharge Ordered: 11/16/2024 Culture, Urine, Routine Microbiology Routine Vaginal discharge Ordered: 11/16/2024 Chlamydia/N. Gonorrhoeae RNA, TMA, Vaginal Microbiology Routine Vaginal discharge Ordered: 11/16/2024 documented as of this encounter Procedures Procedure Name Priority Date/Time Associated Diagnosis Comments POCT , URINE Routine 11/16/2024 10:50 AM EDT Vaginal discharge POCT URINALYSIS DIPSTICK Routine 11/16/2024 10:36 AM EDT Vaginal discharge documented in this encounter Results * POCT , urine manually resulted (11/16/2024 10:50 AM EDT) Preg Test, Ur Negative Negative, Indeterminate, None Detected, Invalid, Specimen unsatisfactory for evaluation, Weakly Positive, 2+ Urine 11/16/2024 10:5 0 AM EDT Laine Manrique DO POINT OF CARE TEST ENTER/ALEXIS T ORDERABLES Final Result * POCT urinalysis dipstick manually resulted (11/16/2024 10:36 AM EDT) Color, UA Yellow Clarity, UA Clear Glucose, UA Negative Bilirubin, UA Negative Ketones, UA Negative Spec Grav, UA 1.030 Blood, UA Negative Negative, None Detected pH, UA 5.5 Protein, UA Negative Urobilinogen, UA 0.2 Leukocytes, UA Negative Negative, Rare, Trace Nitrite, UA Negative Negative, None Detected Urine 11/16/2024 10:3 6 AM EDT Laine Manrique DO POINT OF CARE TEST ENTER/ALEXIS T ORDERABLES Final Result documented in this encounter Visit Diagnoses Diagnosis Vaginal discharge- Primary Leukorrhea, not specified as infective Routine screening for STI (sexually transmitted infection) Screening examination for venereal disease Encounter for initial prescription of injectable contraceptive documented in this encounter Administered Medications Active Administered Medications - up to 3 most recent administrations Medication Order MAR Action Action Date Dose Rate Site medroxyPROGESTERone (Depo-Provera) injection 150 mg 150 mg, Intramuscular, Every 3 months, First dose on Kristine 11/16/24 at 1115, For 5 dosesIndications:Encounter for initial prescription of injectable contraceptive Given 11/16/2024 11:25 AM EDT 150 mg Left Deltoid documented in this encounter Care Teams Commercial Service Technician Relationship Specialty Start Date End Date Katherine Gómez ANP [address] [place] [phone] PCP - General Family Medicine 09/05/19 documented as of this encounter
--- OUTSIDE RECORDS SUMMARY | 2024-11-16 16:38 | XMS_ITS | Clinical Summary ---
Author Organization [employer] Address [address] [facility] 7t [place] [address] Care Team Providers Care Straw Hat Plunger Operator Name Role Phone Dalia Katherine ROSALES Primary Care Provider [phone] Allergies No known active allergies Medications Acetaminophen Extra Strength 500 MG tablet Take 500 mg by mouth every 6 (six) hours if needed. Active ibuprofen 800 MG tablet Take 800 mg by mouth every 8 (eight) hours if needed. 023 Active lidocaine (Lidoderm) 5 % patch Place 1 patch on the skin at bed time. 021 Active medroxyPROGES TERone (Depo-Provera ) 150 MG/ML injection Inject 1 mL (150 mg) into the muscle every 3 (three) months. 1 mL 3 025 Active metroNIDAZOLE (Flagyl) 500 MG tablet Take 1 tablet (500 mg) by mouth 2 times daily for 7 days. 14 tablet 025 2024 Active amoxicillin-c lavulanate (Augmentin) 875-125 MG tablet Take 1 tablet by mouth 2 times daily. 023 2024 Discontinued(T herapy completed) Ciprodex otic suspension INSTILL 4 DROPS INTO THE EAR(S) 2 TIMES A DAY FOR 7 DAYS 023 2024 Discontinued(T herapy completed) medroxyPROGES TERone (Depo-Provera ) 150 MG/ML injection INJECT 1 ML INTRAMUSCULARLY EVERY 3 MONTHS 022 2024 Discontinued(R eorder (will not trigger notification to Pharmacy)) Hospital, Clinic, or Other Facility Administered Medication Ordered Dose Route Frequency Start Date End Date Status medroxyPROGESTERone (Depo-Provera) injection 150 mgIndications:Encounte r for initial prescription of injectable contraceptive 150 mg IM Every 3 months 11/16/2024 02/09/2026 Active Active Problems Problem Noted Date Diagnosed Date Bicornuate uterus 06/28/2024 Cholestasis of 06/28/2024 Depression during 06/28/2024 Family history of deafness 06/28/2024 History of delivery 06/28/2024 Low maternal weight gain 06/28/2024 Non-stress test reactive 06/28/2024 Noninflammatory pericardial effusion 06/28/2024 Overview (06/28/2024): 2019, tx'd here at [facility]. Request for sterilization 06/28/2024 Vaginal itching 06/28/2024 Preop examination 06/23/2024 Assessment & Plan (06/23/2024 11:05 AM EDT): Patient is low risk for low risk procedure, RCRI score is 0 which means a 3.9% risk Surgery should proceed as scheduled It was advised n.p.o. after midnight for the procedure EKG and breast ultrasound ordered today Axillary lump, right 10/27/2023 Assessment & Plan [...] Problem Noted Date Diagnosed Date Resolved Date 24 weeks gestation of 10/27/2023 09/13/2024 Assessment & Plan (10/27/2023 11:59 AM EDT): Pt is 24 weeks and 4 days gestational age. -no acute concerns Abscess 10/27/2023 10/27/2023 Encounters Date Type Department Care Team Description 11/16/2024 10:20 AM EDT Office Visit [facility] [address] [place] [phone] Laine Manrique DO Vaginal discharge (Primary Dx); Routine screening for STI (sexually transmitted infection); Encounter for initial prescription of injectable contraceptive 11/16/2024 Travel 11/14/[address] [address] Katherine Gómez ANP Appointment Request 11/01/[address] [address] Joy Gonzalez MD chart prep 10/31/[address] [address] Katherine Gómez ANP Nurse Triage 10/18/[address] [address] Katherine Gómez ANP Care Management ([facility] graduation) 09/26/[address] [address] Katherine Gómez ANP Care Management ([facility] TC #[id number]) 09/14/[address] [address] Yoly Alexandra CNM 09/13/[address] [address] Yoly Alexandra CNM chart prep 08/30/[address] [address] Katherine Gómez ANP Care Management ([facility] follow up call) 08/30/[address] [address] Katherine Gómez ANP Medication Question (/) from Last 3 Months Immunizations Immunization Administration Dates Next Due DTaP 10/20/2000,,05/10/1997,03/06,1996 HPV, Quadrivalent 01/10/2013,12/23/2007 Hep B, Adolescent or Pediatric 1996,1996,1996 IPV 10/20/2000, 8,03/06/1997,12/07 Influenza injectable quadriv alent preservative free 01/21/2015 Influenza, IIV3, injectable 01/09/2020 Influenza, live, intranasal 01/10/2013 Influenza, seasonal, injecta ble, preservative free 01/09/2020 MMR 10/20/2000,09/12/1997 Meningococcal [id number] [id number] 01/21/2015,01/11/20 13 [...] is your housing situation today? I have lankaren pickett 02/03/[address] you [...] 6.4 oz) 11/16/2024 10:12 AM EDT Height 163.8 cm (5' 4.5 ) 06/23/2024 10:22 AM ED T Body Mass Index 24.91 06/23/2024 10:22 AM EDT Plan of Treatment Upcoming Encounters Date Type Department Care Team (Late st Contact Info) Description 12/18/2024 10:00 AM EDT Clinical Support [facility] [address] [place] [phone] 02/02/2025 9:30 AM EST Clinical Support [address] [address] Health Maintenance Due Date Last Done Comments Depression Screening 1996 HIV Screening 1996 Hepatitis B Vaccines (4 of 4 - 4-dose series) 02/28/1997 1996, 1996, 1996 Family Planning (PISQ) 08/30/2011 Hepatitis C Screening 2014 Hepatitis A Vaccines (1 of 2 - Risk 2-dose series) 08/30/2015 COVID-19 Vaccine ( season) 2023 02/01/2023, 02/07/2021 Influenza Vaccine (#1) 2024 , 01/09/2020, 01/21/2015, Additional history exists SDOH Screening 02/02/2025 02/03/2024 Alcohol/Substance Use Screening 06/23/2025 06/23/2024 Disability Screening 06/23/2025 06/23/2024 DTaP/Tdap/Td Vaccines (8 - Td or Tdap) 10/28/2025 10/29/2015, 12/23/2007, 10/20/2000, Additional history exists Tobacco Screening 11/16/2025 11/16/2024 HPV/Cotest 09/26/2026 09/27/2023 Pap Smear 09/26/2026 09/27/2023, [...] on patient's age to complete this topic Meningococcal B Vaccine Aged Out No l onger eligible based on patient's age to complete this topic Pneumococcal Vaccine: Pediatrics (0 to 5 Years) and At-Risk Patients (6 to 49) Years Aged Out No longer eligible based on [...] Routine 11/16/2024 10:36 AM EDT Vaginal discharge HM PAP/HPV Routine 09/27/2023 12:00 AM EDT from Last 3 Months or Most Recently Relevant to Health Maintenance Results * POCT , urine manually resulted [...] TEST ENTER/ALEXIS T ORDERABLES Final Result * (ABNORMAL) HM PAP/HPV (09/27/2023 12:00 AM EDT) Pap Smear 2. ASCUS(A) 1. NILM HPV Not Detected Undetected, Indeterminat e, Quantitative , Not Detected Historical Provider HEALTH MAINTENANCE Edited Result - Final from Last 3 Months or Most Recently Relevant to Health Maintenance Insurance [facility] C3 * Guarantor: Jerman Mitchell Account Type Relation to Patient Date of Phone Billing Address Personal/Family Self [address] [phone] Care Teams Straw Hat Plunger Operator Relationship Specialty Start Date End Date Katherine Gómez ANP [address] [place] [address] PCP - General Family Medicine 09/05/19
--- OUTSIDE RECORDS SUMMARY | 2024-11-16 16:38 | XMS_ITS | Encounter Summary ---
Author Organization [employer] Address [address] [facility] 7t [place] [address] Care Team Providers Care Instructor Substitute Cosmetology Name Role Phone Katherine Gómez Primary Care Provider Reason for Visit * Reason Onset Date Comments Appointment Request 11/14/2024 Encounter Details Date Type Department Care Team ([facility] Contact Info) Description 11/14/2024 Telephone [facility] [address] [place] [address] Katherine Gómez ANP [address] [place] [address] Appointment Request Social History Tobacco Use Types Packs/Day Years [...] the past 12 months, has t he [employer], gas, oil or water [employer] threatened to shut off services in your [...] AM EDT documented as of this encounter Miscellaneous Notes * Telephone Encounter - Nuno Arvizu - 11/15/2024 12:32 PM EDT Pt called in offered available for Wednesday but declined. Pt states will be going to [facility] * Telephone Encounter - Blayne Spicer - 11/14/2024 10:36 AM EDT Tc from pt requesting to reschedule missed apt on 11/02. Contact pt at [phone] documented in this encounter Plan of Treatment Upcoming Encounters Date Type Department Care Team (Late st Contact Info) Description 12/18/2024 10:00 AM EDT Clinical Support [address] [address] 02/02/2025 9:30 AM EST Clinical Support [facility] [address] [place] [phone] documented as of this encounter Visit Diagnoses Not on filedocumented in this encounter Care Teams Instructor Substitute Cosmetology Relationship Specialty Start Date End Date Katherine Gómez ANP [address] [place] [address] PCP - General Family Medicine 09/05/19 documented as of this encounter
--- OUTSIDE RECORDS SUMMARY | 2024-11-16 16:38 | XMS_ITS | Encounter Summary ---
Author Organization [employer] Address [address] [place] [address] Care Team Providers Care Still Operator Name Role Phone Dalia Katherine ROSALES Primary Care Provider [phone] Encounter Details Date Type Department Care Team (Latest Contact Info) Description 11/16/2024 Travel Social History Tobacco Use Types Packs/Day Years [...] as of this encounter Plan of Treatment Upcoming Encounters Date Type Department Care Team (Late st Contact Info) Description 12/18/2024 10:00 AM EDT Clinical Support [address] [address] 02/02/2025 9:30 AM EST Clinical Support [address] [address] documented as of this encounter Visit Diagnoses Not on filedocumented in this encounter Care Teams Still Operator Relationship Specialty Start Date End Date Katherine Gómez ANP [address] [place] [phone] PCP - General Family Medicine 09/05/19 documented as of this encounter
--- OUTSIDE RECORDS SUMMARY | 2024-11-16 16:38 | XMS_ITS | Encounter Summary ---
Author Organization [facility] [employer] Address [address] [facility] [address] [place] [address] Care Team Providers Care Dry Wall Finisher Name Role Phone Dalia Katherine ROSALES Primary Care Provider [phone] Encounter Details Date Type Department Care Team ([facility] st Contact Info) Description 03/06/2024 Orders Only [facility] [address] [place] [address] Stormy Augustin Social History Tobacco Use Types [...] 12/18/2024 10:00 AM EDT Clinical Support [address] [address] 02/02/2025 9:30 AM EST Clinical Support [address] [address] documented as of this encounter Procedures Procedure Name Priority Date/Time Associated Diagnosis Comments PAP/HPV Routine 09/27/2023 12:00 AM EDT documented in this encounter Results * (ABNORMAL) PAP/HPV (09/27/2023 12:00 AM EDT) Pap Smear 2. ASCUS(A) 1. NILM HPV Not Detected Undetected, Indeterminat e, Quantitative , Not Detected us Historical Provider HEALTH MAINTENANCE Edited Result - Final documented in this encounter Visit Diagnoses Not on filedocumented in this encounter Care Teams Dry Wall Finisher Relationship Specialty Start Date End Date Katherine Gómez ANP [address] [place] [phone] PCP - General Family Medicine 09/05/19 documented as of this encounter
[2024-11-17 04:55] LABS: CT PCR NOT DETECTED (Not Detect.); NG PCR NOT DETECTED (Not Detect.)
[2024-11-17 07:23] LABS: Bacterial Vaginosis PCR POSITIVE (Negative); Candida Group PCR NOT DETECTED (Not Detect); Candida glab krusei PCR NOT DETECTED (Not Detect); Trichomonas vaginalis PCR NOT DETECTED (Not Detect)
== END 2024-11-16 16:37 | disposition home or self-care (01) ==
LOC: HO.HHCLNP 16:36
PROVIDERS: Visit Provider Family Medicine
DX: Z11.3 Encounter for screening for infections with a predominantly sexual mode of transmission (principal); Z11.8 Encounter for screening for other infectious and parasitic diseases; N89.8 Other specified noninflammatory disorders of vagina
CPT/HCPCS: 81515; 87086; 87491; 87591